=== PATIENT | male | born 1955 | race Caucasian/White ===

== ENCOUNTER → 2017-07-11 | Outpatient (CLI) | payer BC | LOC: M WUC 12:16 | DX: M79.605 Pain in left leg (principal); M51.36 Other intervertebral disc degeneration, lumbar region; M16.12 Unilateral primary osteoarthritis, left hip | CPT/HCPCS: 72110 ==

== ENCOUNTER → 2017-08-13 | Outpatient (CLI) | payer BC | LOC: M RAD 13:35 | DX: M54.5 Low back pain (principal) ==

== ENCOUNTER → 2017-09-30 | Outpatient (REF) | payer BC ==
[2017-09-30 13:21] LABS: ALBUMIN 4.3 GM/DL (3.2-5.2); ALBUMIN/GLOBULIN RATIO 1.43 (1.00-1.93); ALKALINE PHOSPHATASE 77 U/L (45-117); ALT/SGPT 20 U/L (12-78); ANION GAP 7 MEQ/L (8-16); AST/SGOT 25 U/L (7-37); BILIRUBIN,TOTAL 0.9 MG/DL (0.2-1.0); BLOOD UREA NITROGEN 19 MG/DL (7-18); CALCIUM LEVEL 9.4 MG/DL (8.8-10.2); CARBON DIOXIDE LEVEL 27 MEQ/L (21-32); CHLORIDE LEVEL 108 MEQ/L (98-107); CHOLESTEROL LEVEL 176 MG/DL (<200); CHOLESTEROL RISK RATIO 9.263 (<5); CREATININE FOR GFR 1.34 MG/DL (0.70-1.30); GLOMERULAR FILTRATION RATE 57.1 (>49); GLUCOSE, FASTING 116 MG/DL (70-100); HDL CHOLESTEROL 19 MG/DL (>40); NON-HDL-C 157 MG/DL; POTASSIUM SERUM 4.6 MEQ/L (3.5-5.1); SODIUM LEVEL 142 MEQ/L (136-145); TOTAL PROTEIN 7.3 GM/DL (6.4-8.2); TRIGLYCERIDES LEVEL 505 MG/DL (<150)
[2017-09-30 13:52] LABS: HEPATITIS C VIRUS ABY INDEX < 0.0 INDEX (<0.8)
[2017-09-30 14:20] LABS: ESTIMATED AVERAGE GLUCOSE 114 MG/DL (60-110); HEMOGLOBIN A1c 5.6 %
== END ==
LOC: M SFHCPLAZ 10:10
DX: Z11.59 Encounter for screening for other viral diseases (principal); I10 Essential (primary) hypertension; E66.9 Obesity, unspecified; E78.5 Hyperlipidemia, unspecified; N39.3 Stress incontinence (female) (male)
CPT/HCPCS: 80053

== ENCOUNTER → 2017-10-10 | Outpatient (REF) | payer BC ==
[2017-10-10 13:41] LABS: BACTERIA, URINE AUTO NEGATIVE (NEGATIVE); RBC, URINE AUTO 0 /HPF (0-3); SQUAMOUS EPITHELIAL CELL UR AU 0 /HPF (0-6); WBC, URINE AUTO 3 /HPF (0-3)
== END ==
LOC: M SMT 12:57
DX: R33.9 Retention of urine, unspecified (principal)
CPT/HCPCS: 81015

== ENCOUNTER → 2017-10-18 | Outpatient (REF) | payer BC ==
[2017-10-18 19:05] LABS: AMORPHOUS SEDIMENT SMALL (NEGATIVE); APPEARANCE, URINE TURBID (CLEAR); BACTERIA, URINE AUTO 2+ (NEGATIVE); BILIRUBIN, URINE AUTO NEGATIVE (NEGATIVE); BLOOD, URINE BLOOD 3+ (NEGATIVE); COLOR, URINE YELLOW (YELLOW); GLUCOSE, URINE (UA) AUTO NEGATIVE (NEGATIVE); KETONE, URINE AUTO TRACE mg/dL (NEGATIVE); LEUKOCYTE ESTERASE, URINE AUTO 3+ (NEGATIVE); MUCUS, URINE SMALL (NEGATIVE); NITRITE, URINE AUTO NEGATIVE (NEGATIVE); PROTEIN, URINE AUTO 3+ mg/dL (NEGATIVE); RBC, URINE AUTO 120 /HPF (0-3); SPECIFIC GRAVITY URINE AUTO 1.019 (1.002-1.035); SQUAMOUS EPITHELIAL CELL UR AU 0 /HPF (0-6); WBC, URINE AUTO TNTC /HPF (0-3)
== END ==
LOC: M SMT 16:49
DX: R82.90 Unspecified abnormal findings in urine (principal)
CPT/HCPCS: 81001

== ENCOUNTER → 2017-10-22 | Outpatient (CLI) | payer BC | LOC: M RAD 09:48 | DX: R33.9 Retention of urine, unspecified (principal); K76.0 Fatty (change of) liver, not elsewhere classified; R16.0 Hepatomegaly, not elsewhere classified | CPT/HCPCS: 76775 ==

== ENCOUNTER → 2017-10-31 | Outpatient (REF) | payer BC ==
[2017-10-31 12:53] LABS: ANION GAP 8 MEQ/L (8-16); BLOOD UREA NITROGEN 16 MG/DL (7-18); CALCIUM LEVEL 9.4 MG/DL (8.8-10.2); CARBON DIOXIDE LEVEL 27 MEQ/L (21-32); CHLORIDE LEVEL 108 MEQ/L (98-107); CHOLESTEROL LEVEL 118 MG/DL (<200); CHOLESTEROL RISK RATIO 4.538 (<5); CREATININE FOR GFR 1.11 MG/DL (0.70-1.30); GLOMERULAR FILTRATION RATE > 60.0 (>49); GLUCOSE, FASTING 111 MG/DL (70-100); HDL CHOLESTEROL 26 MG/DL (>40); LDL CHOLESTEROL 50.6 MG/DL (<100); NON-HDL-C 92 MG/DL; POTASSIUM SERUM 4.6 MEQ/L (3.5-5.1); SODIUM LEVEL 143 MEQ/L (136-145); TRIGLYCERIDES LEVEL 207 MG/DL (<150)
== END ==
LOC: M LAB REF 11:58
DX: E78.5 Hyperlipidemia, unspecified (principal); I10 Essential (primary) hypertension
CPT/HCPCS: 80061

== ENCOUNTER → 2017-12-16 | Outpatient (REF) | payer BC ==
[2017-12-16 14:19] LABS: ANION GAP 9 MEQ/L (8-16); BLOOD UREA NITROGEN 15 MG/DL (7-18); CARBON DIOXIDE LEVEL 26 MEQ/L (21-32); CHLORIDE LEVEL 106 MEQ/L (98-107); GLOMERULAR FILTRATION RATE > 60.0 (>49); GLUCOSE, FASTING 113 MG/DL (70-100); POTASSIUM SERUM 4.3 MEQ/L (3.5-5.1); SODIUM LEVEL 141 MEQ/L (136-145); TROPONIN I < 0.02 NG/ML (< 0.10)
[2017-12-16 15:09] LABS: CREATININE, URINE 71.3 MG/DL; MAU/CREAT RATIO 586.2 MCG/MG (0.0-30.0)
== END ==
LOC: M SFHCPLAZ 13:41
DX: I16.0 Hypertensive urgency (principal)
CPT/HCPCS: 82043

== ENCOUNTER → 2018-05-30 | Outpatient (REF) | payer BC ==
[~2018-05-30] MED LIST: /TAMS4CA; ALLO300T; ALTA5CAP; ASPI325T; CIPR500T19; GEMF600T; METF750T; METO25TA2; NITR0.4S; PLAV75TA2; ROSU10TA; VARE1TA; VICO5TAB
[2018-05-30 18:42] LABS: APPEARANCE, URINE CLEAR (CLEAR); BACTERIA, URINE AUTO NEGATIVE (NEGATIVE); BILIRUBIN, URINE AUTO NEGATIVE (NEGATIVE); BLOOD, URINE BLOOD NEGATIVE (NEGATIVE); COLOR, URINE YELLOW (YELLOW); GLUCOSE, URINE (UA) AUTO 3+ mg/dL (NEGATIVE); KETONE, URINE AUTO NEGATIVE (NEGATIVE); LEUKOCYTE ESTERASE, URINE AUTO NEGATIVE (NEGATIVE); NITRITE, URINE AUTO NEGATIVE (NEGATIVE); PROTEIN, URINE AUTO NEGATIVE (NEGATIVE); RBC, URINE AUTO 1 /HPF (0-3); SPECIFIC GRAVITY URINE AUTO 1.027 (1.002-1.035); SQUAMOUS EPITHELIAL CELL UR AU 0 /HPF (0-6); UROBILINOGEN, URINE AUTO 0.2 mg/dL (0.0-2.0); WBC, URINE AUTO 2 /HPF (0-3)
== END ==
LOC: M SMT 17:04
PROVIDERS: ATTEND Specialist
DX: R30.0 Dysuria (principal)

== ENCOUNTER → 2018-07-07 | Outpatient (REF) | payer BC ==
[2018-07-07 12:19] LABS: BLOOD UREA NITROGEN 18 MG/DL (7-18); CALCIUM LEVEL 9.1 MG/DL (8.8-10.2); CARBON DIOXIDE LEVEL 27 MEQ/L (21-32); CHLORIDE LEVEL 98 MEQ/L (98-107); CHOLESTEROL LEVEL 124 MG/DL (<200); CHOLESTEROL RISK RATIO 5.391 (<5); CREATININE FOR GFR 1.46 MG/DL (0.70-1.30); GLOMERULAR FILTRATION RATE 51.7 (>49); GLUCOSE, FASTING 454 MG/DL (70-100); HDL CHOLESTEROL 23 MG/DL (>40); NON-HDL-C 101 MG/DL; POTASSIUM SERUM 4.4 MEQ/L (3.5-5.1); SODIUM LEVEL 135 MEQ/L (136-145); TRIGLYCERIDES LEVEL 786 MG/DL (<150)
[2018-07-07 12:30] LABS: HEMOGLOBIN A1c 9.9 %
[2018-07-07 12:43] LABS: CREATININE, URINE 78.1 MG/DL; MAU/CREAT RATIO 298.3 MCG/MG (0.0-30.0)
[2018-07-08 10:59] LABS: VITAMIN B12 LEVEL 1754 PG/ML (232-1245)
== END ==
LOC: M SFHCPLAZ 08:45
PROVIDERS: ATTEND Family Medicine
DX: R81 Glycosuria (principal); Z13.1 Encounter for screening for diabetes mellitus; E78.5 Hyperlipidemia, unspecified; I10 Essential (primary) hypertension; R80.9 Proteinuria, unspecified; R29.898 Other symptoms and signs involving the musculoskeletal system

== ENCOUNTER → 2018-08-07 | Outpatient (REF) | payer BC ==
[2018-08-07 12:45] LABS: CALCIUM LEVEL 9.5 MG/DL (8.8-10.2); CREATININE FOR GFR 1.31 MG/DL (0.70-1.30); GLOMERULAR FILTRATION RATE 58.6 (>49); POTASSIUM SERUM 4.6 MEQ/L (3.5-5.1)
[2018-08-07 13:25] LABS: HEMOGLOBIN A1c 10.1 %
== END ==
LOC: M SFHCPLAZ 10:24
PROVIDERS: ATTEND Family Medicine
DX: E11.29 Type 2 diabetes mellitus with other diabetic kidney complication (principal)

== ENCOUNTER → 2018-08-28 | Outpatient (CLI) | payer MEDICARE, BC ==
[~2018-08-28] MED LIST changes: -/TAMS4CA; +CRES10TA32; +FLOM0.4C39; +PROHANCE 279.3MG/ML 15ML VIAL (A9576) As Ordered ONE; -ROSU10TA
--- NOTE | 2018-08-28 10:58 | REP ---
MRI LUMBAR SPINE WITHOUT AND WITH CONTRAST: HISTORY: Bilateral leg weakness. CONTRAST: ProHance 11 mL. COMPARISON: 08/13/2017. A rudimentary disc is present at the S1-2 level. Decreased signal intensity on T2-weighted images is present in the L3-4 through L5-S1 intervertebral discs. The discs are decreased in height. These findings are consistent with disc degeneration. There is no disc bulge or herniation at the L1-2 level. The L1 nerves exit the neural foramina without compression. A diffuse disc bulge is present at the L2-3 level. There is an increase in the amount of epidural fat. There is minimal compression of the thecal sac. There is hypertrophy of the posterior articulating facets. The L2 nerves exit the neural foramina without compression. A diffuse disc bulge is present at the L3-4 level. There is an increase in the amount of epidural fat. There is minimal compression of the thecal sac. There is hypertrophy of the posterior articulating facets. The L3 nerves exit the neural foramina without compression. A diffuse disc bulge is present at the L4-5 level. There is an increase in the amount of epidural fat. There is mild compression of the thecal sac. There is hypertrophy of the posterior articulating facets. A small left intraforaminal disc protrusion is present. There is compression of the left L4 nerve in the neural foramen. The right L4 nerve exits the neural foramen without compression. A diffuse disc bulge and small disc extrusion central and eccentric to the right with associated osteophyte formation are present at the L5-S1 level. There is inferior migration of disc material. There are 4 mm of retrolisthesis of L5 on S1. There is an increase in the amount of epidural fat. There is mild compression of the thecal sac and S1 nerves as they exit the thecal sac. There is hypertrophy of the posterior articulating facets. There is compression of the L5 nerves in the neural foramina. There is partial sacralization of the L5 vertebral body. The conus medullaris terminates at the level of the L2-3 intervertebral disc. 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 The lipoma measures 0.7 cm in transverse by 1.1 cm in AP by 2.6 cm in cephalocaudal dimensions and is unchanged in size compared to the previous study. This is associated with fatty infiltration of the filum terminale. There is no syrinx. Increased signal intensity on T2-weighted images is present in the endplates of the L5 and S1 vertebral bodies. This represents degenerative change. IMPRESSION: 1. Diffuse disc bulge and epidural lipomatosis at the L2-3 and L3-4 levels with minimal thecal sac compression. 2. Diffuse disc bulge and epidural lipomatosis at the L4-5 level with mild thecal sac compression. A small left intraforaminal disc protrusion is present. There is compression of the left L4 nerve in the neural foramen. 3. Diffuse disc bulge and small disc extrusion with associated osteophyte formation and epidural lipomatosis at the L5-S1 level with minimal compression of the thecal sac and S1 nerves as they exit the thecal sac. There is compression of the L5 nerves in the neural foramina. 4. 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 This is associated with fatty infiltration of the filum terminale. There is no significant change compared to the previous study. Electronically Signed by Sami Velazco MD 08/28/2018 11:17 A
== END ==
LOC: M RAD 08:32
PROVIDERS: ATTEND Family Medicine
DX: R29.898 Other symptoms and signs involving the musculoskeletal system (principal); M51.26 Other intervertebral disc displacement, lumbar region; M51.34 Other intervertebral disc degeneration, thoracic region; M51.27 Other intervertebral disc displacement, lumbosacral region; E88.2 Lipomatosis, not elsewhere classified
CPT/HCPCS: 72158; A9576

== ENCOUNTER → 2018-09-04 | Outpatient (REF) | payer MEDICARE, BC ==
[~2018-09-04] MED LIST changes: -PROHANCE 279.3MG/ML 15ML VIAL (A9576) As Ordered ONE
[2018-09-04 11:25] LABS: BLOOD UREA NITROGEN 19 MG/DL (7-18); CALCIUM LEVEL 8.8 MG/DL (8.8-10.2); CARBON DIOXIDE LEVEL 28 MEQ/L (21-32); CHLORIDE LEVEL 105 MEQ/L (98-107); CHOLESTEROL LEVEL 108 MG/DL (<200); CREATININE FOR GFR 1.22 MG/DL (0.70-1.30); GLOMERULAR FILTRATION RATE > 60.0 (>49); GLUCOSE, FASTING 192 MG/DL (70-100); HDL CHOLESTEROL 24 MG/DL (>40); POTASSIUM SERUM 4.4 MEQ/L (3.5-5.1); SODIUM LEVEL 139 MEQ/L (136-145); TRIGLYCERIDES LEVEL 481 MG/DL (<150)
[2018-09-04 11:26] LABS: NON-HDL-C 84 MG/DL; TROPONIN I < 0.02 NG/ML (< 0.10)
== END ==
LOC: M SFHCPLAZ 10:06
PROVIDERS: ATTEND Family Medicine
DX: E78.5 Hyperlipidemia, unspecified (principal); I10 Essential (primary) hypertension; I16.0 Hypertensive urgency

== ENCOUNTER → 2018-09-11 | Outpatient (REF) | payer MEDICARE, BC ==
[~2018-09-11] MED LIST changes: +AMLO5TAB6; +CHLO125TA; +EZET10TA; +GLIP5TAB20; +JANU100T; +LOSA100T50; +METF500T13; +METO1TAB33; +OMEG1CAP4; +OMEP-221; +ROSU20TA4
[2018-09-11 13:45] LABS: MAU/CREAT RATIO 326.4 MCG/MG (0.0-30.0)
[2018-09-13 00:06] LABS: Lyme Disease IgG/IgM Antibodie <0.91 ISR (0.00-0.90); Lyme Disease IgM Ab Quantitati <0.80 index (0.00-0.79)
== END ==
LOC: M SFHCPLAZ 11:50
PROVIDERS: ATTEND Family Medicine
DX: R29.898 Other symptoms and signs involving the musculoskeletal system (principal); E78.5 Hyperlipidemia, unspecified; I10 Essential (primary) hypertension; I16.0 Hypertensive urgency
CPT/HCPCS: 36415; 82043; 86617; G0463

== ENCOUNTER 2018-10-06 08:57 | Emergency (ER) | payer MEDICARE, BC ==
[~2018-10-06] VITALS: Ht 175.3 cm; Wt 109.5 kg
[~2018-10-06 08:57] MED LIST changes: -AMLO5TAB6; -CHLO125TA; -EZET10TA; -GLIP5TAB20; -JANU100T; -LOSA100T50; -METF500T13; -METO1TAB33; -OMEG1CAP4; -OMEP-221; -ROSU20TA4
[2018-10-06 09:40] LABS: BASO % 0.4 % (0.0-1.0); EOS # 0.3 10^3/uL (0.0-0.50); EOS % 2.8 % (0.0-3.0); HEMOGLOBIN 14.8 g/dl (13.5-17.5); LYMPH # 2.6 10^3/uL (1.5-4.5); LYMPH % 27.7 % (24.0-44.0); MEAN CORPUSCULAR HEMOGLOBIN 31.6 pg (27.0-33.0); MEAN CORPUSCULAR HGB CONC 34.4 g/dl (32.0-36.5); MEAN CORPUSCULAR VOLUME 91.7 fl (80.0-96.0); MONO # 0.7 10^3/uL (0.0-0.8); MONO % 7.8 % (0.0-5.0); NEUTROPHILS # 5.7 10^3/uL (1.8-7.7); PLATELET COUNT, AUTOMATED 183 10^3/uL (150-450); RED BLOOD COUNT 4.69 10^6/uL (4.30-6.10); WHITE BLOOD COUNT 9.4 10^3/uL (4.0-10.0)
[2018-10-06] MEDS ORDERED: METF500T13 (09:41)
[2018-10-06] MEDS ORDERED: JANU100T (09:41)
[2018-10-06] MEDS ORDERED: ROSU20TA4 (09:41)
[2018-10-06] MEDS ORDERED: GLIP5TAB20 (09:41)
[2018-10-06] MEDS ORDERED: METO1TAB33 (09:41)
[2018-10-06] MEDS ORDERED: EZET10TA (09:41)
[2018-10-06] MEDS ORDERED: OMEG1CAP4 (09:41)
[2018-10-06] MEDS ORDERED: OMEP-221 (09:41)
[2018-10-06] MEDS ORDERED: CHLO125TA (09:41)
[2018-10-06] MEDS ORDERED: AMLO5TAB6 (09:41)
[2018-10-06] MEDS ORDERED: LOSA100T50 (09:41)
--- NOTE | 2018-10-06 09:43 | REP ---
Chest one-view HISTORY: Chest pain Comparison: 04/12/2008 The lungs are clear. The heart is normal in size. The pulmonary vasculature is normal in appearance. Impression: No acute disease. Electronically Signed by Sami Velazco MD 10/06/2018 09:34 A
[2018-10-06 10:01] LABS: BLOOD UREA NITROGEN 15 MG/DL (7-18); CALCIUM LEVEL 7.7 MG/DL (8.8-10.2); CARBON DIOXIDE LEVEL 28 MEQ/L (21-32); CHLORIDE LEVEL 107 MEQ/L (98-107); CK-MB VALUE MASS < 1.0 NG/ML (<3.6); CPK CREATINE PHOSPHOKINASE 184 U/L (39-308); CREATININE FOR GFR 1.18 MG/DL (0.70-1.30); GLOMERULAR FILTRATION RATE > 60.0 (>49); GLUCOSE, FASTING 149 MG/DL (70-100); MB/CK RELATIVE INDEX 0.54 (< OR =4); POTASSIUM SERUM 4.1 MEQ/L (3.5-5.1); SODIUM LEVEL 141 MEQ/L (136-145); TROPONIN I < 0.02 NG/ML (< 0.10)
[2018-10-06 12:12] LABS: CK-MB VALUE MASS < 1.0 NG/ML (<3.6); CPK CREATINE PHOSPHOKINASE 167 U/L (39-308); TROPONIN I < 0.02 NG/ML (< 0.10)
--- NOTE | 2018-10-06 12:13 | ECGEPIP ---
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
--- NOTE | 2018-10-06 12:16 | ECGEPIP ---
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
[2018-10-06 15:12] LABS: CK-MB VALUE MASS < 1.0 NG/ML (<3.6); CPK CREATINE PHOSPHOKINASE 141 U/L (39-308); MB/CK RELATIVE INDEX 0.71 (< OR =4); TROPONIN I < 0.02 NG/ML (< 0.10)
--- NOTE | 2018-10-06 15:40 | ECGEPIP ---
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
[2018-10-06 15:50] VITALS: BP 110/57
== END 2018-10-06 15:59 | disposition home or self-care (01) ==
LOC: M ED 08:57
DX: I25.118 Atherosclerotic heart disease of native coronary artery with other forms of angina pectoris (principal); E11.9 Type 2 diabetes mellitus without complications; I11.9 Hypertensive heart disease without heart failure; E78.5 Hyperlipidemia, unspecified; Z95.5 Presence of coronary angioplasty implant and graft; Z87.891 Personal history of nicotine dependence; Z82.49 Family history of ischemic heart disease and other diseases of the circulatory system; Z88.8 Allergy status to other drugs, medicaments and biological substances; Z79.899 Other long term (current) drug therapy; Z79.84 Long term (current) use of oral hypoglycemic drugs; Z79.82 Long term (current) use of aspirin

== ENCOUNTER → 2018-11-13 | Outpatient (REF) | payer MEDICARE, BC ==
[~2018-11-13] MED LIST changes: +AMLO5TAB6; +CHLO125TA; +EZET10TA21; +GLIP5TAB20; +JANU100T; +LOSA100T50; +METF500T13; +METO1TAB33; +OMEG1CAP4; +OMEP-221; +ROSU20TA5
[2018-11-13 14:03] LABS: CREATININE, URINE 88.1 MG/DL; MAU/CREAT RATIO 326.9 MCG/MG (0.0-30.0)
[2018-11-13 14:20] LABS: HEMOGLOBIN A1c 5.6 %
== END ==
LOC: M SFHCPLAZ 11:27
PROVIDERS: ATTEND Family Medicine
DX: E11.65 Type 2 diabetes mellitus with hyperglycemia (principal)
CPT/HCPCS: 36415; 82043; 83036; G0463

== ENCOUNTER → 2019-05-12 | Outpatient (REF) | payer MEDICARE, BC ==
[2019-05-12 12:33] LABS: ALBUMIN 4.2 GM/DL (3.2-5.2); ALT/SGPT 25 U/L (12-78); BLOOD UREA NITROGEN 15 MG/DL (7-18); CALCIUM LEVEL 9.5 MG/DL (8.8-10.2); CARBON DIOXIDE LEVEL 26 MEQ/L (21-32); CHLORIDE LEVEL 104 MEQ/L (98-107); CHOLESTEROL LEVEL 91 MG/DL (<200); CHOLESTEROL RISK RATIO 3.791 (<5); CREATININE FOR GFR 1.25 MG/DL (0.70-1.30); GLOMERULAR FILTRATION RATE > 60.0 (>49); GLUCOSE, FASTING 104 MG/DL (70-100); HDL CHOLESTEROL 24 MG/DL (>40); LDL CHOLESTEROL 10 MG/DL (<100); NON-HDL-C 67 MG/DL; POTASSIUM SERUM 4.5 MEQ/L (3.5-5.1); SODIUM LEVEL 141 MEQ/L (136-145); TOTAL PROTEIN 7.2 GM/DL (6.4-8.2); TRIGLYCERIDES LEVEL 284 MG/DL (<150)
[2019-05-12 12:40] LABS: HEMOGLOBIN A1c 5.2 %
== END ==
LOC: M SFHCPLAZ 10:24
PROVIDERS: ATTEND Nurse Practitioner Adult Health
DX: I10 Essential (primary) hypertension (principal); E11.65 Type 2 diabetes mellitus with hyperglycemia; E78.2 Mixed hyperlipidemia; Z85.038 Personal history of other malignant neoplasm of large intestine; Z23 Encounter for immunization
CPT/HCPCS: 36415; 80053; 80061; 82378; 83036; 90670; G0009; G0463

== ENCOUNTER 2019-06-08 01:31 | Emergency (ER) | payer MEDICARE, BC ==
[~2019-06-08] VITALS: Ht 177.8 cm; Wt 114.6 kg
[2019-06-08] MEDS ORDERED: ASPIRIN 325 MG TAB PO ONE (01:45)
[2019-06-08 01:59] LABS: BASO # 0.1 10^3/uL (0.0-0.2); BASO % 0.5 % (0.0-1.0); EOS # 0.3 10^3/uL (0.0-0.5); EOS % 2.9 % (0.0-3.0); HEMOGLOBIN 16.4 g/dl (13.5-17.5); LYMPH # 2.6 10^3/uL (1.5-5.0); LYMPH % 27.2 % (24.0-44.0); MEAN CORPUSCULAR HEMOGLOBIN 32.3 pg (27.0-33.0); MEAN CORPUSCULAR HGB CONC 33.5 g/dl (32.0-36.5); MEAN CORPUSCULAR VOLUME 96.5 fl (80.0-96.0); MONO # 0.7 10^3/uL (0.0-0.8); MONO % 7.7 % (0.0-5.0); NEUTROPHILS # 5.9 10^3/uL (1.5-8.5); NEUTROPHILS % 61.5 % (36.0-66.0); PLATELET COUNT, AUTOMATED 188 10^3/uL (150-450); RED BLOOD COUNT 5.08 10^6/uL (4.30-6.10); WHITE BLOOD COUNT 9.6 10^3/uL (4.0-10.0)
[2019-06-08 02:10] LABS: PROTHROMBIN TIME 12.9 SECONDS (11.8-14.0)
[2019-06-08] MEDS ORDERED: INDO50CA91 (02:10)
[2019-06-08 02:11] LABS: PARTIAL THROMBOPLASTIN TIME 26.5 SECONDS (25.0-38.4)
[2019-06-08] MEDS ORDERED: NITROGLYCERIN 2% OINT 1 GM *U/D* PKT As Ordered ONE (02:12)
[2019-06-08] MEDS ORDERED: MORPHINE 2 MG/ML 1ML VIAL (J2270) As Ordered ONE (02:13)
[2019-06-08] MEDS ORDERED: NITROGLYCERIN 2% OINT 1 GM *U/D* PKT TOP ONE (02:15)
[2019-06-08] MEDS ORDERED: MORPHINE 2 MG/ML 1ML VIAL (J2270) IV ONE (02:15)
[2019-06-08 02:28] LABS: BLOOD UREA NITROGEN 25 MG/DL (7-18); CALCIUM LEVEL 8.7 MG/DL (8.8-10.2); CARBON DIOXIDE LEVEL 29 MEQ/L (21-32); CHLORIDE LEVEL 104 MEQ/L (98-107); CK-MB VALUE MASS < 1.0 NG/ML (<3.6); CPK CREATINE PHOSPHOKINASE 94 U/L (39-308); CREATININE FOR GFR 1.53 MG/DL (0.70-1.30); GLOMERULAR FILTRATION RATE 48.9 (>49); GLUCOSE, FASTING 176 MG/DL (70-100); MB/CK RELATIVE INDEX 1.06 (< OR =4); POTASSIUM SERUM 4.1 MEQ/L (3.5-5.1); SODIUM LEVEL 142 MEQ/L (136-145); TROPONIN I < 0.02 NG/ML (< 0.10)
[2019-06-08] MEDS ORDERED: NS 500 ML IV ONE (02:30)
[2019-06-08] MEDS ORDERED: ISOVUE-370 76% 100ML VIAL (Q9967) As Ordered ONE (02:37)
--- NOTE | 2019-06-08 03:14 | REPVR ---
PROCEDURE INFORMATION: Exam: CT Angiography Chest With Contrast Exam date and time: 06/08/19 (2:46am) Age: 63 years old Clinical indication: Chest pain TECHNIQUE: Imaging protocol: Computed tomographic angiography of the chest with intravenous contrast. 3D rendering: MIP and/or 3D reconstructed images were created by the technologist. Radiation optimization: All CT scans at this facility use at least one of these dose optimization techniques: automated exposure control; mA and/or kV adjustment per patient size (includes targeted exams where dose is matched to clinical indication); or iterative reconstruction. Contrast material: Isovue 370 Contrast volume: 100 ml Contrast route: IV COMPARISON: Portable CXR of 06/08/19 FINDINGS: Pulmonary arteries: Normal. No pulmonary emboli. Aorta: Unremarkable. No aortic aneurysm. No aortic dissection. Lungs: No consolidation. No masses. Minimal bronchiectatic changes. Minimal streaky atelectatic changes at the right lung base. Pleural space: Unremarkable. No pneumothorax. No pleural effusions. Heart: Unremarkable. No cardiomegaly. No pericardial effusion. Lymph nodes: Unremarkable. No enlarged lymph nodes. Bones/joints: No acute fracture. Scattered degenerative thoracic spine changes. Soft tissues: Unremarkable. Upper abdomen: Distended stomach, filled with fluid, food debris and air. Diffuse fatty infiltration of the liver. IMPRESSION: No acute findings. No filling defects suspicious for pulmonary emboli are seen. There is no CT evidence of aortic dissection nor leakage. No aortic aneurysm is appreciated. Electronically signed by: Radha Chambers On 06/08/2019 03:13:52 AM
[2019-06-08] MEDS ORDERED: MORPHINE 4 MG/ML 1ML VIAL/SYRINGE (J2270) IV ONE (04:00)
[2019-06-08] MEDS ORDERED: amLODIPine 5 MG TAB PO ONE ×2 (05:45→06:15)
[2019-06-08 06:08] VITALS: BP 188/102
--- NOTE | 2019-06-08 06:22 | ECGEPIP ---
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
[2019-06-08 06:38] LABS: CK-MB VALUE MASS < 1.0 NG/ML (<3.6); CPK CREATINE PHOSPHOKINASE 80 U/L (39-308); MB/CK RELATIVE INDEX 1.25 (< OR =4); TROPONIN I < 0.02 NG/ML (< 0.10)
[2019-06-08] MEDS ORDERED: AMLO5TAB6 PO (06:51)
[2019-06-08] MEDS ORDERED: GABA-843 PO (07:13)
[2019-06-08] MEDS ORDERED: JANU100T PO (07:13)
[2019-06-08 07:22] VITALS: BP 132/76
[2019-06-08] MEDS ORDERED: OMEP40CA97 PO (07:28)
[2019-06-08] MEDS ORDERED: ZOFR4TAB16 PO (07:28)
--- NOTE | 2019-06-08 08:12 | REP ---
Portable chest x-ray: Single view. History: Chest pain. Comparison study: October 06, 2018. Findings: The right lateral pleural angle is excluded from the field of view but there does not appear to be significant pleural fluid on either side. The lungs are otherwise well inflated and clear. Cardiomediastinal silhouette and bony thorax are unremarkable. Impression: No acute disease. Electronically Signed by Alcides Adorno MD 06/08/2019 08:04 A
== END 2019-06-08 07:49 | disposition home or self-care (01) ==
LOC: M ED 01:31
DX: R07.89 Other chest pain (principal); I10 Essential (primary) hypertension; M54.9 Dorsalgia, unspecified; E11.9 Type 2 diabetes mellitus without complications; E78.5 Hyperlipidemia, unspecified; K21.9 Gastro-esophageal reflux disease without esophagitis; M10.9 Gout, unspecified; N40.0 Benign prostatic hyperplasia without lower urinary tract symptoms; M48.00 Spinal stenosis, site unspecified; M19.90 Unspecified osteoarthritis, unspecified site; Z79.899 Other long term (current) drug therapy; Z79.84 Long term (current) use of oral hypoglycemic drugs; Z79.82 Long term (current) use of aspirin; Z88.8 Allergy status to other drugs, medicaments and biological substances; Z87.891 Personal history of nicotine dependence
CPT/HCPCS: 71045; 71275; 80048; 82550; 82553; 84484; 85025; 85610; 85730; 93005; 93041; 94760; 96374; 96376; 99285; J2270; Q9967

== ENCOUNTER 2019-06-13 20:49 | Inpatient (IN) | payer MEDICARE, BC ==
[~2019-06-13] VITALS: Ht 177.8 cm; Wt 112.0 kg
[~2019-06-13 20:49] MED LIST changes: +AMLO5TAB6 PO; -EZET10TA21; +EZET10TA21 PO; +GABA-843 PO; -GLIP5TAB20; +GLIP5TAB20 PO; +INDO50CA91 PO; +JANU100T PO; -LOSA100T50; +LOSA100T50 PO; -METO1TAB33; +METO1TAB33 PO; -OMEG1CAP4; +OMEG1CAP4 PO; -OMEP-221; +OMEP-221 PO; +OMEP40CA97 PO; -ROSU20TA5; +ROSU20TA5 PO; +ZOFR4TAB16 PO
[2019-06-13] MEDS ORDERED: NS 1,000 ML IV ONE (21:15)
[2019-06-13] MEDS ORDERED: DULC5TAB PO (21:16)
[2019-06-13] MEDS ORDERED: MIRA3350 PO (21:16)
[2019-06-13] MEDS ORDERED: magnesium citrate (21:16)
[2019-06-13] MEDS ORDERED: ONDANSETRON 4MG/2ML VIAL (J2405) IV ONE (21:30)
[2019-06-13 21:38] LABS: BASO % 0.3 % (0.0-1.0); EOS # 0.2 10^3/uL (0.0-0.5); EOS % 1.4 % (0.0-3.0); HEMATOCRIT 48.6 % (42.0-52.0); HEMOGLOBIN 15.9 g/dl (13.5-17.5); LYMPH # 1.2 10^3/uL (1.5-5.0); LYMPH % 10.2 % (24.0-44.0); MEAN CORPUSCULAR HEMOGLOBIN 31.3 pg (27.0-33.0); MEAN CORPUSCULAR HGB CONC 32.7 g/dl (32.0-36.5); MEAN CORPUSCULAR VOLUME 95.7 fl (80.0-96.0); MONO % 8.2 % (0.0-5.0); NEUTROPHILS # 9.5 10^3/uL (1.5-8.5); NEUTROPHILS % 79.3 % (36.0-66.0); PLATELET COUNT, AUTOMATED 297 10^3/uL (150-450); RED BLOOD COUNT 5.08 10^6/uL (4.30-6.10)
[2019-06-13] MEDS: MORPHINE 4 MG/ML 1ML VIAL/SYRINGE (J2270) IV PRN ×2 (21:38→22:07)
[2019-06-13 22:13] LABS: ALBUMIN 3.3 GM/DL (3.2-5.2); ALT/SGPT 222 U/L (12-78); BILIRUBIN,DIRECT 1.1 MG/DL (0.0-0.2); BILIRUBIN,TOTAL 1.7 MG/DL (0.2-1.0); CK-MB VALUE MASS < 1.0 NG/ML (<3.6); CPK CREATINE PHOSPHOKINASE 76 U/L (39-308); LIPASE 275 U/L (73-393); MB/CK RELATIVE INDEX 1.32 (< OR =4); TOTAL PROTEIN 7.2 GM/DL (6.4-8.2); TROPONIN I < 0.02 NG/ML (< 0.10)
--- NOTE | 2019-06-13 22:56 | REPVR ---
PROCEDURE INFORMATION: Exam: CT Abdomen And Pelvis Without Contrast Exam date and time: 06/13/2019 10:13 PM Age: 63 years old Clinical indication: Abdominal pain; Epigastric; Additional info: Epigastric abd pain, ckd TECHNIQUE: Imaging protocol: Computed tomography of the abdomen and pelvis without contrast. Radiation optimization: All CT scans at this facility use at least one of these dose optimization techniques: automated exposure control; mA and/or kV adjustment per patient size (includes targeted exams where dose is matched to clinical indication); or iterative reconstruction. COMPARISON: RENAL US 2017-10-22 10:01 FINDINGS: Limitations: Limited by patient's body habitus. Lungs: Dependent subsegmental pulmonary atelectasis. Liver: Enlarged low attenuating liver, evidence of hepatic steatosis. Gallbladder and bile ducts: Gallbladder distention without radiopaque stones. Pericholecystic stranding. Evident suggesting acute cholecystitis, correlate with ultrasound. Pancreas: Normal. No ductal dilation. Spleen: Normal. No splenomegaly. Adrenals: Normal. No mass. Kidneys and ureters: Mild perinephric stranding. Stomach and bowel: Moderate to large duodenal diverticulum. Mild colonic diverticulosis without evidence for acute diverticulitis. Rectosigmoid bowel anastomosis. Anterior midline small bowel anastomosis. Gastric wall thickening. Appendix: No evidence of appendicitis. Intraperitoneal space: Unremarkable. No free air. No significant fluid collection. Vasculature: Moderate right greater than left iliac artery atherosclerosis. Lymph nodes: Unremarkable. No enlarged lymph nodes. Bladder: Bladder wall thickening. Reproductive: Unremarkable as visualized. Bones/joints: Mild/moderate lumbar spondylosis. Soft tissues: Laparotomy scarring. Small fat protruding umbilical hernia. IMPRESSION: Gallbladder distention but without radiopaque stones. Pericholecystic stranding. Evidence suggesting possible acute cholecystitis, correlate with ultrasound. Electronically signed by: Rome Singh On 06/13/2019 22:56:24 PM
--- NOTE | 2019-06-13 23:10 | REPVR ---
PROCEDURE INFORMATION: Exam: US Abdomen Limited, Right Upper Quadrant Exam date and time: 06/13/2019 11:00 PM Age: 63 years old Clinical indication: Abdominal pain; Epigastric; Additional info: Ruq abd pain TECHNIQUE: Imaging protocol: Real-time ultrasound of the abdomen with image documentation. Examination was focused on the right upper quadrant. COMPARISON: RENAL US 2017-10-22 10:01 FINDINGS: Limitations: Limited by patient's body habitus. Liver: Echogenic liver compatible with hepatic steatosis. Gallbladder: Positive sonographic Rahman sign with gallbladder wall thickening measuring 4 mm, and gallbladder sludge. Evidence favoring acute cholecystitis. Common bile duct: Normal common biliary duct measuring 4 mm. Pancreas: Pancreas obscured by bowel gas. Right kidney: Normal. No mass. No hydronephrosis. IMPRESSION: Positive sonographic Rahman sign with gallbladder wall thickening measuring 4 mm, and gallbladder sludge. Evidence favoring acute cholecystitis. Electronically signed by: Rome Singh On 06/13/2019 23:09:57 PM
[2019-06-13] MEDS ORDERED: PIPERACILLIN/TAZOBACTAM SOD 3.375 GM in D5W MINI-BAG PLUS 50 ML IV ONE (23:30)
[2019-06-13] MEDS ORDERED: AMLO5TAB6 PO (23:54)
[2019-06-13] MEDS ORDERED: NITR0.4S14 SL (23:54)
[2019-06-13] MEDS ORDERED: ONDA4TAB6 PO (23:54)
[2019-06-13] MEDS ORDERED: BAYE325T12 PO (23:54)
[2019-06-14] MEDS ORDERED: BISACODYL 5 MG TAB PO PRN
[2019-06-14] MEDS ORDERED: ACETAMINOPHEN TAB 650MG DOSE (2X325MG) PO PRN
[2019-06-14] MEDS ORDERED: GLUCAGON FOR INJ 1 MG VIAL (J1610) SC PRN
[2019-06-14] MEDS ORDERED: ONDANSETRON 4MG/2ML VIAL (J2405) IV PRN
[2019-06-14] MEDS ORDERED: DEXTROSE 50% 50 ML SYRINGE IV PRN
[2019-06-14] MEDS ORDERED: KETOROLAC 30 MG/ML VIAL (J1885) IV PRN
[2019-06-14] MEDS ORDERED: GLUCOSE 4 GM CHEW TABLET PO PRN
[2019-06-14] MEDS ORDERED: INDOMETHACIN 25 MG CAP PO PRN
[2019-06-14] MEDS ORDERED: PERCOCET 5MG/325MG TAB PO PRN ×2
[2019-06-14 00:47] VITALS: BP 152/77
[2019-06-14] MEDS: LR 1,000 ML IV SCH ×3 (01:12→20:22)
[2019-06-14] MEDS: GABAPENTIN 300 MG CAP PO SCH ×3 (01:17→20:23)
[2019-06-14] MEDS: EZETIMIBE 10 MG TAB (ZETIA) PO SCH ×2 (01:17→20:23)
[2019-06-14] MEDS: ROSUVASTATIN 10 MG TAB (CRESTOR) PO SCH ×2 (01:18→20:23)
[2019-06-14] MEDS: LOSARTAN 50 MG TAB PO SCH ×2 (01:18→20:23)
[2019-06-14] MEDS: SENOKOT S TAB PO SCH ×3 (01:20→20:23)
[2019-06-14] MEDS: amLODIPine 5 MG TAB PO SCH ×3 (01:21→20:23)
[2019-06-14] MEDS ORDERED: MORPHINE 4 MG/ML 1ML VIAL/SYRINGE (J2270) IV PRN (02:45)
[2019-06-14] MEDS: AMPICILLIN SOD/SULBACTAM SOD 3 GM in D5W MINI-BAG PLUS 100 ML IV SCH ×4 (05:39→23:38)
[2019-06-14 06:00] VITALS: BP 143/75
[2019-06-14 06:20] LABS: BASO % 0.2 % (0.0-1.0); EOS # 0.1 10^3/uL (0.0-0.5); EOS % 0.4 % (0.0-3.0); HEMATOCRIT 43.6 % (42.0-52.0); HEMOGLOBIN 14.4 g/dl (13.5-17.5); LYMPH # 0.9 10^3/uL (1.5-5.0); LYMPH % 4.9 % (24.0-44.0); MEAN CORPUSCULAR HEMOGLOBIN 31.8 pg (27.0-33.0); MEAN CORPUSCULAR VOLUME 96.2 fl (80.0-96.0); MONO # 1.3 10^3/uL (0.0-0.8); MONO % 7.6 % (0.0-5.0); NEUTROPHILS # 15.3 10^3/uL (1.5-8.5); NEUTROPHILS % 86.6 % (36.0-66.0); PLATELET COUNT, AUTOMATED 287 10^3/uL (150-450); RED BLOOD COUNT 4.53 10^6/uL (4.30-6.10); WHITE BLOOD COUNT 17.7 10^3/uL (4.0-10.0)
[2019-06-14 06:49] LABS: ALBUMIN 3.1 GM/DL (3.2-5.2); BILIRUBIN,TOTAL 2.8 MG/DL (0.2-1.0); CALCIUM LEVEL 9.1 MG/DL (8.8-10.2); CREATININE FOR GFR 1.5 MG/DL (0.70-1.30); POTASSIUM SERUM 4.2 MEQ/L (3.5-5.1); TOTAL PROTEIN 7.2 GM/DL (6.4-8.2)
[2019-06-14] MEDS ORDERED: HumaLOG INSULIN (NovoLOG) PER UNIT SC SCH (07:30)
[2019-06-14] MEDS: CHLORTHALIDONE 12.5MG PER 1/2 TABLET PO SCH (08:04)
[2019-06-14] MEDS: PANTOPRAZOLE 40MG INJ (PROTONIX) (C9113) IV SCH (08:04)
[2019-06-14] MEDS: ENOXAPARIN 40 MG/0.4 ML SYRINGE (J1650) SC SCH (08:04)
[2019-06-14] MEDS: METOPROLOL SUCC (TopROL XL) 100MG *XL* TAB PO SCH (08:07)
[2019-06-14] MEDS: HumaLOG INSULIN (NovoLOG) PER UNIT SC SCH ×3 (12:00→23:37)
[2019-06-14] MEDS: LACTULOSE 20 GM/30 ML SYRUP UD PO SCH ×2 (13:58→20:21)
[2019-06-14 14:00] VITALS: BP 132/66
--- NOTE | 2019-06-14 14:41 | REP ---
MRCP: Without contrast. History: Elevated liver function studies. Rule out CBD obstruction. Comparison CT study June 13, 2019. Comparison sonography June 13, 2019. Technique: Axial and coronal T2-weighted scans were obtained. In addition, MRCP acquisition is acquired and maximal intensity projection images are generated. MRCP findings: There is a fluid-fluid level in the gallbladder lumen consistent with sludge. Gallbladder wall appears somewhat thickened. The gallbladder is distended mildly. The common bile duct is at the upper range of normal in size measuring 6 mm. There is no evidence of choledocholithiasis. The main pancreatic duct is normal in appearance. There is a fairly large duodenal diverticulum arising from the second portion of the duodenum near the ampulla. No pancreatic lesion is seen. No focal hepatic lesion is observed. No intrahepatic ductal dilation is observed. Impression: Distended gallbladder with sludge and mild gallbladder wall thickening. Duodenal diverticulum extending from the second portion of the duodenum near the ampulla. CBD at the upper range of normal 6 mm. No evidence of choledocholithiasis. Electronically Signed by Alcides Adorno MD 06/14/2019 02:31 P
[2019-06-14 22:00] VITALS: BP 133/68
--- NOTE | 2019-06-14 23:46 | HPEPDOC ---
General Surgery H&P Date of Admission Jun 14, 2019 Attending Physician: PATTY KENNEY MD History and Physical CHIEF COMPLAINT: abdominal pain HISTORY OF PRESENT ILLNESS: Patient is a 63-year-old male who was present twice in the emergency room in a span of 1 week's time complain of intermittent periumbilical discomfort. He was seen last Saturday complaining of periumbilical pain also being able to move his bowels and was diagnosed with constipation. ALLERGIES: Please see below. HOME MEDICATIONS: Please see below. PAST MEDICAL HISTORY: 1. Coronary artery disease with prior angioplasty and stent placement in 2003, prior history of DE 2. Hypercholesterolemia 3. Hypertension 4. History of sleep apnea not on CPAP 5. History of rectal cancer status post low anterior resection 6. BPH 7. Gastroesophageal reflux disease 8. Diabetes. 9. Cataracts PAST SURGICAL HISTORY: 1. Angioplasty with stent placement 2003. 2. Low anterior resection 3. TURP 2 4. Carpal Tunnel release on the left wrist. PERSONAL/SOCIAL HISTORY: Denies smoking, alcohol use, or recreational drug use. REVIEW OF SYSTEMS: GENERAL: Denies chills, fatigue, fever, weight gain and weight loss. HEENT: Patient reports cataracts, moderate hearing loss. NECK: Denies any neck pain. CARDIOVASCULAR: Patient with significant cardiac history but denies any ongoing chest pain. Able to do light to moderate activity. MUSCULOSKELETAL: Denies arthralgias, back pain and thrombophlebitis. SKIN: Denies rash. NEUROLOGIC: Denies headache, stroke and transient ischemic attack. PSYCHIATRIC: Denies anxiety and depression. ENDOCRINE: Denies thyroid disease, has diabetes on oral hypoglycemics.. HEMATOLOGY/ONCOLOGY: Denies any bleeding or clotting disorder. Patient not on any anticoagulants. He is on full dose aspirin daily. PULMONARY: Denies any significant shortness of breath on activity. Has diagnosed sleep apnea not on CPAP or oxygen requirements. GASTROINTESTINAL: Significant for prior history of rectal cancer status post low anterior resection. He is problems with constipation and needs laxatives to help him. GENITOURINARY: Patient's of the catheterizes since rectal surgery. INFECTIOUS: Denies any recent upper respiratory tract infection, UTI, need for use of antibiotics. NUTRITION: Reports good appetite. PHYSICAL EXAMINATION: VITAL SIGNS: Please see below. GENERAL APPEARANCE: Patient seen laying on bed, relatively comfortable, not in any acute distress. He is moderately obese in appearance, does not appear to be chronically ill. He is pleasant and cooperative. HEENT: Patient is normocephalic, no facial asymmetry. Speech is slightly slow in pace. No obvious jaundice or scleral icterus. CHEST: No chest wall abnormalities. Normal respiratory motion/effort. NECK: Supple. No thyromegaly. No lymphadenopathies. LUNGS: Lung sounds are clear to auscultation bilaterally. No wheezing appreciated. HEART: No chest wall abnormalities. Heart rate and rhythm are regular with no murmurs. ABDOMEN: He is moderately obese. Abdomen is quite protuberant. He seems to be tensely distended. He has a low midline incision. No obvious incisional hernia. He is somewhat tender around the periumbilical area but no real focal tenderness over the right upper quadrant area. No obvious Rahman sign.. SKIN: Warm, moist. EXTREMITIES: Extremities have no deformities. No edema identified. NEUROLOGICAL: Awake, alert, oriented. . ANCILLARIES: . LABORATORY DATA: Please see below. MICROBIOLOGY: Please see below. IMAGING: CT abdomen and pelvis Gallbladder distention but without radiopaque stones. Pericholecystic stranding. Evidence suggesting possible acute cholecystitis, correlate with ultrasound. Gallbladder ultrasound Positive sonographic Rahman sign in the gallbladder wall thickening measuring 4 mm, gallbladder sludge. Common bile duct 4 mm IMPRESSION AND PLAN: acute cholecystitis probable choledocholithiasis. Chronic constipation He alec one week of symptoms that are not necessarily located to the right upper quadrant near though he does show some inflammation related to the gallbladder. Per emergency room report as well as ultrasound report he was tender at the right upper quadrant area so on my exam right now most of the discomfort are in the periumbilical area which may also be related to the abdominal distention from the chronic constipation possibly slight fecal impaction. He does have evidence for gallbladder wall thickening and pericholecystic edema on imaging as well as leukocytosis. Thus I will treat him as cholecystitis and start him on IV antibiotics. He does have some sludge in the gallbladder. On the ultrasound is is only 4 mm: Bile duct. He has pronounced AST and ALT as well as total bili shin elevation which makes me suspect the possibility of choledocholithiasis. I'll admit him the hospital for IV antibiotics and we'll repeat the LFTs this morning of this continues to elevate we'll get an MRI to rule out choledocholithiasis. I discussed with him how we treat cholecystitis with regards to operative therapy. Usually if I encounter patient's within 2 or 3 days of stereotactic I will consider immediate cholecystectomy though with prolonged attacks and prohibitive swelling and edema from this. A usually would try conservative therapy. He's been reporting symptoms that is about a week now. Also we still have to workup the angle of possibly choledocholithiasis. Also with his exa mination he is quite distended which mainly from the ileus or from his constipation. I will start him on twice a day doses of lactulose as he has taken multiple laxatives already without much effect. I'm hoping to if need be create space for possible laparoscopy. Overall he does not look toxic, toxic or septic thus an emergent procedure does not need to be done right now. Vital Signs Vital Signs Date Time Temp Pulse Resp B/P (MAP) Pulse Ox O2 Delivery O2 Flow Rate FiO2 06/14/19 20:23 125/65 06/14/19 20:23 78 06/14/19 14:00 96.5 17 94 Room Air I&Os I&O- Last 24 Hours up to 6 AM 06/14/19 06:00 Intake Total 1000 ml Balance 1000 ml Laboratory Data Labs 24H Laboratory Tests 2 06/14/19 00:53: Bedside Glucose (Misc Panel) 179H 06/14/19 05:51: Bedside Glucose (Misc Panel) 119H 06/14/19 05:55: Immature Granulocyte % (Auto) 0.3, Neutrophils (%) (Auto) 86.6H, Lymphocytes (%) (Auto) 4.9L, Monocytes (%) (Auto) 7.6H, Eosinophils (%) (Auto) 0.4, Basophils (%) (Auto) 0.2, Neutrophils # (Auto) 15.3H, Lymphocytes # (Auto) 0.9L, Monocytes # (Auto) 1.3H, Eosinophils # (Auto) 0.1, Basophils # (Auto) 0.0, Nucleated Red Blood Cells % (auto) 0.0, Anion Gap 6L, Glomerular Filtration Rate 50.0, Calcium Level 9.1, Total Bilirubin 2.8#H, Direct Bilirubin 2.0H, Aspartate Amino Transf (AST/SGOT) 650H, Alanine Aminotransferase (ALT/SGPT) 430H, Alkaline Phosphatase 274H, Total Protein 7.2, Albumin 3.1L, Albumin/Globulin Ratio 0.76L 06/14/19 12:25: Bedside Glucose (Misc Panel) 132H CBC/BMP Laboratory Tests 06/14/19 05:55 Microbiology Microbiology 06/13/19 Blood Culture - Preliminary, Resulted 06/13/19 Blood Culture - Preliminary, Resulted No growth after 24 hours . All specim... 06/13/19 Urine Culture, Received Pending Home Medications Scheduled Amlodipine Besylate (Amlodipine Besylate) 5 Mg Tablet, 5 MG PO BID, (Reported) Aspirin (Aspirin) 325 Mg Tablet, 325 MG PO DAILY, (Reported) Chlorthalidone (Chlorthalidone) 25 Mg Tablet, 12.5 MG DAILY, (Reported) Ezetimibe (Ezetimibe) 10 Mg Tablet, 10 MG PO QHS, (Reported) Gabapentin (Gabapentin) 300 Mg Capsule, 300 MG PO BID, (Reported) Glipizide (Glipizide ER) 5 Mg Tab.er.24, 5 MG PO DAILY, (Reported) Losartan Potassium (Losartan Potassium) 100 Mg Tablet, 100 MG PO QHS, (Reported) Metformin HCl (Metformin HCl) 500 Mg Tablet, 1,000 MG BID, (Reported) Metoprolol Succinate (Metoprolol Succinate) 100 Mg Tab.er.24h, 100 MG PO DAILY, (Reported) Nitroglycerin (Nitroglycerin) 0.4 Mg Tab.subl, 0.4 MG SL NITRO, (Reported) Prospect-3 Acid Ethyl Esters (Prospect-3 Acid Ethyl Esters) 1 Gm Capsule, 1 GRAM PO QHS, (Reported) Omeprazole (Omeprazole) 40 Mg Capsule.dr, 40 MG PO DAILY, (Reported) Rosuvastatin Calcium (Rosuvastatin Calcium) 20 Mg Tablet, 20 MG PO QHS, (Reported) Sitagliptin Phosphate (Januvia) 100 Mg Tablet, 100 MG PO DAILY, (Reported) Scheduled PRN Bisacodyl (Dulcolax) 5 Mg Tablet.dr, 5 MG PO DAILY PRN for CONSTIPATION, (Reported) Indomethacin (Indomethacin) 50 Mg Capsule, 50 MG PO BID PRN for GOUT FLARES, (Reported) Ondansetron (Ondansetron Odt) 4 Mg Tab.rapdis, 4 MG PO Q6H PRN for NAUSEA OR VOMITING, (Reported) Polyethylene Glycol 3350 (Miralax) 119 Gm Powder, 17 GM PO DAILY PRN for CONSTIPATION, (Reported) dilute in 8 ounces of water or juice Allergies Coded Allergies: niacin (Verified Allergy, Intermediate, hives, 06/13/19) A-FIB/CHADSVASC A-FIB History Current/History of A-Fib/PAF?: No Current PO Anticoag Therapy: No PATTY KENNEY MD Jun 14, 2019 23:46
[2019-06-15 05:51] LABS: BASO % 0.2 % (0.0-1.0); EOS # 0.3 10^3/uL (0.0-0.5); EOS % 2.9 % (0.0-3.0); HEMOGLOBIN 13.8 g/dl (13.5-17.5); LYMPH # 0.7 10^3/uL (1.5-5.0); LYMPH % 7.6 % (24.0-44.0); MEAN CORPUSCULAR HEMOGLOBIN 31.6 pg (27.0-33.0); MEAN CORPUSCULAR HGB CONC 32.9 g/dl (32.0-36.5); MEAN CORPUSCULAR VOLUME 96.1 fl (80.0-96.0); MONO # 0.7 10^3/uL (0.0-0.8); MONO % 6.8 % (0.0-5.0); NEUTROPHILS # 7.8 10^3/uL (1.5-8.5); NEUTROPHILS % 81.9 % (36.0-66.0); PLATELET COUNT, AUTOMATED 226 10^3/uL (150-450); RED BLOOD COUNT 4.37 10^6/uL (4.30-6.10); WHITE BLOOD COUNT 9.5 10^3/uL (4.0-10.0)
[2019-06-15] MEDS: LR 1,000 ML IV SCH ×2 (05:57→16:55)
[2019-06-15] MEDS: AMPICILLIN SOD/SULBACTAM SOD 3 GM in D5W MINI-BAG PLUS 100 ML IV SCH ×3 (05:57→18:09)
[2019-06-15 06:00] VITALS: BP 160/82
[2019-06-15 06:32] LABS: ALBUMIN 2.8 GM/DL (3.2-5.2); BILIRUBIN,TOTAL 3.5 MG/DL (0.2-1.0); CALCIUM LEVEL 8.5 MG/DL (8.8-10.2); CREATININE FOR GFR 1.34 MG/DL (0.70-1.30); POTASSIUM SERUM 3.3 MEQ/L (3.5-5.1); TOTAL PROTEIN 6.7 GM/DL (6.4-8.2)
[2019-06-15] MEDS: HumaLOG INSULIN (NovoLOG) PER UNIT SC SCH ×3 (06:57→18:10)
[2019-06-15 08:55] VITALS: BP 151/78
[2019-06-15] MEDS: SENOKOT S TAB PO SCH ×2 (09:00→21:05)
[2019-06-15] MEDS: LACTULOSE 20 GM/30 ML SYRUP UD PO SCH (09:00)
[2019-06-15] MEDS: CHLORTHALIDONE 12.5MG PER 1/2 TABLET PO SCH (09:00)
[2019-06-15] MEDS: GABAPENTIN 300 MG CAP PO SCH ×2 (09:46→21:05)
[2019-06-15] MEDS: METOPROLOL SUCC (TopROL XL) 100MG *XL* TAB PO SCH (09:47)
[2019-06-15] MEDS: amLODIPine 5 MG TAB PO SCH ×2 (09:47→21:06)
[2019-06-15] MEDS: PANTOPRAZOLE 40MG INJ (PROTONIX) (C9113) IV SCH (09:47)
[2019-06-15] MEDS: ENOXAPARIN 40 MG/0.4 ML SYRINGE (J1650) SC SCH (09:48)
[2019-06-15 09:57] LABS: BILIRUBIN,DIRECT 2.7 MG/DL (0.0-0.2)
[2019-06-15 14:16] VITALS: BP 148/72
[2019-06-15] MEDS: EZETIMIBE 10 MG TAB (ZETIA) PO SCH (21:05)
[2019-06-15] MEDS: LOSARTAN 50 MG TAB PO SCH (21:06)
[2019-06-15] MEDS: ROSUVASTATIN 10 MG TAB (CRESTOR) PO SCH (21:06)
[2019-06-15 22:00] VITALS: BP 170/77
[2019-06-16] MEDS: HumaLOG INSULIN (NovoLOG) PER UNIT SC SCH ×3 (00:18→11:55)
[2019-06-16] MEDS: AMPICILLIN SOD/SULBACTAM SOD 3 GM in D5W MINI-BAG PLUS 100 ML IV SCH ×3 (00:18→11:41)
[2019-06-16 01:00] VITALS: BP 163/78
[2019-06-16] MEDS: LR 1,000 ML IV SCH (01:28)
--- NOTE | 2019-06-16 04:03 | IPNPDOC ---
Text Note Date of Service The patient was seen on 06/15/19. NOTE Patient's abdominal distention is markedly improved with the lactulose. He is complaining of diarrhea and would like to stop the lactulose. He is denying any further abdominal discomfort, nausea or vomiting. He has been afebrile. On examination he is laying in bed comfortably. No evidence for jaundice or icteric sclerae Breathing comfortably, breath sounds are clear to auscultation bilaterally with no wheezing Heart rate and rhythm are regular with no murmurs Abdomen is obese. Previous distention markedly improved. No obvious tenderness at the right upper quadrant area previously at the prior umbilical area also has resolved Labs Significant for continued worsening of his hyperbilirubinemia. Now at 3.5 total bilirubin. Direct bilirubin is 2.7. AST is 2.7 ALT is 212. His previous leukocytosis is resolved Impression and plans Acute cholecystitis Abnormally elevated LFTs particularly his bilirubin which is given an obstructive pattern Constipation improved MRCP has been done yesterday. This does not show any obvious obstructive appearance. The common bile duct measures 6 mm. He has a very large duodenal diverticulum at the second portion of the duodenum near the ampulla. An obvious: Bile duct stone is not found. In terms of his abdominal pain is markedly improved. His leukocytosis is improved now continue his antibiotics for now. His labs still shows an obstructive pattern despite no obvious common bile duct stone on MRCP. I will have our motor block mechanic take a look at him and see what they think with regards to the hyperbilirubinemia on whether he needs a possible ERCP His abdominal distention has improved with the lactulose. I'll stop this for now. I will allow him clear liquids for now while awaiting evaluation by gastroenterology. VS,Fishbone, I+O VS, Fishbone, I+O Laboratory Tests 06/15/19 05:27 Vital Signs Date Time Temp Pulse Resp B/P (MAP) Pulse Ox O2 Delivery O2 Flow Rate FiO2 06/16/19 01:00 98.5 70 18 163/78 (106) 96 Room Air I&O- Last 24 Hours up to 6 AM 06/16/19 06:00 Intake Total 1980 ml Output Total 3900 ml Balance -1920 ml PATTY KENNEY MD Jun 16, 2019 04:03
[2019-06-16 06:47] LABS: BASO % 0.3 % (0.0-1.0); EOS # 0.2 10^3/uL (0.0-0.5); EOS % 2.9 % (0.0-3.0); HEMATOCRIT 41.2 % (42.0-52.0); HEMOGLOBIN 13.9 g/dl (13.5-17.5); LYMPH # 1.1 10^3/uL (1.5-5.0); LYMPH % 15.8 % (24.0-44.0); MEAN CORPUSCULAR HEMOGLOBIN 31.6 pg (27.0-33.0); MEAN CORPUSCULAR HGB CONC 33.7 g/dl (32.0-36.5); MEAN CORPUSCULAR VOLUME 93.6 fl (80.0-96.0); MONO # 0.7 10^3/uL (0.0-0.8); MONO % 10.6 % (0.0-5.0); NEUTROPHILS # 4.6 10^3/uL (1.5-8.5); NEUTROPHILS % 69.5 % (36.0-66.0); PLATELET COUNT, AUTOMATED 245 10^3/uL (150-450); WHITE BLOOD COUNT 6.6 10^3/uL (4.0-10.0)
[2019-06-16 07:18] LABS: ALBUMIN 2.6 GM/DL (3.2-5.2); ALT/SGPT 156 U/L (12-78); BILIRUBIN,TOTAL 1.1 MG/DL (0.2-1.0); BLOOD UREA NITROGEN 14 MG/DL (7-18); CALCIUM LEVEL 8.8 MG/DL (8.8-10.2); CARBON DIOXIDE LEVEL 27 MEQ/L (21-32); CHLORIDE LEVEL 103 MEQ/L (98-107); CREATININE FOR GFR 1.06 MG/DL (0.70-1.30); GLOMERULAR FILTRATION RATE > 60.0 (>49); GLUCOSE, FASTING 143 MG/DL (70-100); POTASSIUM SERUM 3.2 MEQ/L (3.5-5.1); SODIUM LEVEL 138 MEQ/L (136-145); TOTAL PROTEIN 6.4 GM/DL (6.4-8.2)
[2019-06-16 08:00] VITALS: BP 153/80
[2019-06-16] MEDS: CHLORTHALIDONE 12.5MG PER 1/2 TABLET PO SCH (08:43)
[2019-06-16] MEDS: GABAPENTIN 300 MG CAP PO SCH (08:43)
[2019-06-16] MEDS: amLODIPine 5 MG TAB PO SCH (08:44)
[2019-06-16 08:45] VITALS: BP 153/80
[2019-06-16] MEDS: SENOKOT S TAB PO SCH (08:45)
[2019-06-16] MEDS: METOPROLOL SUCC (TopROL XL) 100MG *XL* TAB PO SCH (08:45)
[2019-06-16] MEDS: PANTOPRAZOLE 40MG INJ (PROTONIX) (C9113) IV SCH (08:46)
[2019-06-16] MEDS: ENOXAPARIN 40 MG/0.4 ML SYRINGE (J1650) SC SCH (08:46)
--- NOTE | 2019-06-16 09:09 | IPNPDOC ---
Text Note Date of Service The patient was seen on 06/16/19. NOTE Patient is seen walking the hallways. He tolerated the liquids yesterday. He is denying any abdominal discomfort, nausea or bloating. He tells me that his urine looks more yellowish weaver are arranged now On examination he looks very comfortable No evidence for jaundice or icteric sclerae Breathing comfortably, breath sounds are clear to auscultation bilaterally with no wheezing Heart rate and rhythm are regular with no murmurs Abdomen is obese, protuberant. Nontender on palpation Labs Significant for continued worsening of his hyperbilirubinemia. Now at 3.5 total bilirubin. Direct bilirubin is 2.7. AST is 2.7 ALT is 212. His previous leukocytosis is resolved Impression and plans Acute cholecystitis Abnormally elevated LFTs particularly his bilirubin which is given an obstructive pattern Constipation improved He tells me he was seen by Dr. Magallanes yesterday does not think he needs any ERCP at that time. Repeat LFTs this morning shows marked improvement of the bilirubin now down to 1.5 the site believe he continues to affect in obstructive pattern at is to have resolved even though the MRCP did not demonstrate a clear bile duct obstruction. Nevertheless at this point he has improved. I'll allow him regular diet. If he tolerates this I told him I will discharge him home and plan for interval cholecystectomy given that it is unclear how long he has the cholecystitis. VS,Fishbone, I+O VS, Fishbone, I+O Laboratory Tests 06/16/19 06:25 Vital Signs Date Time Temp Pulse Resp B/P (MAP) Pulse Ox O2 Delivery O2 Flow Rate FiO2 06/16/19 01:00 98.5 70 18 163/78 (106) 96 Room Air I&O- Last 24 Hours up to 6 AM 06/16/19 05:59 Intake Total 2580 ml Output Total 3900 ml Balance -1320 ml PATTY KENNEY MD Jun 16, 2019 06:53
[2019-06-16] MEDS ORDERED: AUGM875T28 PO (14:17)
--- NOTE | 2019-06-16 18:40 | CR.PDOC ---
General Date of Consultation: Jun 15, 2019 Referring Provider: PATTY HICKEY MD Attending Physician: ORTEGA NGUYEN MD Consultation Primary physician/ hospitalist: -Dr. Hickey Reason for consult: -Abnormal liver panel HPI: 63-year-old male patient with HTN, HLD, DM type II, colon cancer ( rectal cancer s/p low anterior ressection as per admission notes, patient is not clear about the surgery), CAD (s/p [employer] many years ago, on aspirin 325 MG daily), was admitted [facility] for persistent/recurrent upper abdominal pain with cholecystitis. Patient is noted to have abnormal liver panel and GI was consulted for the same. Patient reports his symptoms started around 1 week ago with upper abdominal pain, with one episode of vomiting and pressure-like sensation, when he had ER visit and ruled out of acute DC and was discharged. Patient had recurrent episode of similar pain, which was persisted for at least 3 days, without any associated vomiting but associated with constipation. Patient had ultrasound, CT scan and MRI in this hospitalization, was noted to have acute cholecystitis with sludge and gallbladder. Patient reports his abdominal pain has improved today and is feeling hungry. Patient received lactulose which resolved his constipation. Patient denies any other GI symptoms. Pertinent negative GI symptoms: Patient denies fever, sick contacts, recent travel, loss of appetite, early satiety or unintentional weight loss. No history of hematemesis, melena or hematochezia. Review of Systems: GI: as stated above CVS: No chest pain, No palpitations, No leg swelling. RS: No Shortness of breath, No Wheezing, no cough BOTTLE DEALER: No dizziness, No motor weakness, No sensory problems Hematology: No bruising, No gum bleeding, Musculoskeletal: No joint pain, ambulating well. Skin: No rash : No hematuria, No burning sensation of the urine ENT: No ear discharge/ pain, No dysphagia. Eyes: No photophobia. Jaundice Home medications: reviewed. Antithrombotic agents: -Aspirin 325 mg Medical h/o: As above. Surgical h/o: low anterior ressection with prior colostomy and subsequent closure. Social h/o: Alcohol: -Social.. smoking: Quit, IVDA/ drugs: Denies. Family h/o of GI cancers - None Prior Endoscopies: Follows outside [facility].. ( paient reported he had previously seen Dr. Lwason but no records in [facility]). Prior GI evaluations: -None in [facility] Exam: Vitals: reviewed General: Alert and oriented x 3, not in distress HEENT: NO pallor, no icterus. Normal oropharynx, NO cervical lymph nodes. Chest: symmetric with bilateral clear air entry, CVS: S1, S2 heard, normal, no murmurs . Abdomen: non-distended, no surgical scars, soft, non-tender, no palpable masses, normal bowel sounds heard. Rectal exam: Patient refused / Deferred at this time. Extremities: no pedal edema, pulses palpable. BOTTLE DEALER: no focal motor or sensory deficits. Moves all extremities Skin: no rash. Labs: reviewed. Imaging: reviewed the MRI images with radiologist. Normal CBD, large duodenal diverticulum contributing at least to some deviation in the CBD path. Noted cholecystitis. Gallbladder sludge noted in ultrasound Impression: - Abnormal liver panel in a patient with biliary colic pain and imaging showing cholecystitis -- likely abnormal liver panel related to possible CBD stone vs intermittent compression from large duodenal diverticulum. - Constipation -- likely functional. Following with his own primary endoscopist outside of [facility] for his surveillance for colon cancer. Recommendations: - Patient educated about the test results, possible differential diagnoses and All questions answered. - As patient's symptoms have resolved, will advance diet as tolerated. - Monitor liver panel daily. - If worsening liver panel are worsening symptoms, we will consider ERCP based on clinical course. At this time due to improving symptoms will not be requiring ERCP. - Continue antibiotics as per surgery team for cholecystitis. - Cholecystectomy as per surgery team. - High fiber diet and fiber supplements for constipation. - Upon discharge, patient is educated to follow-up with his primary colonoscopist for his routine surveillance colonoscopies. Elective EGD to further evaluate the duodenal diverticulum. - Recall GI if any change in status. Plan of care discussed with patient, his and primary team. Patient verbalized understanding and agreed with the plan. Allergies Coded Allergies: niacin (Verified Allergy, Intermediate, hives, 06/13/19) Home Medications Scheduled Amlodipine Besylate (Amlodipine Besylate) 5 Mg Tablet, 5 MG PO BID, (Reported) Amoxicillin/Potassium Clav (Augmentin 875-125 Tablet) 1 Each Tablet, 1 TAB PO BID for 10 Days, #20 Aspirin (Aspirin) 325 Mg Tablet, 325 MG PO DAILY, (Reported) Chlorthalidone (Chlorthalidone) 25 Mg Tablet, 12.5 MG DAILY, (Reported) Ezetimibe (Ezetimibe) 10 Mg Tablet, 10 MG PO QHS, (Reported) Gabapentin (Gabapentin) 300 Mg Capsule, 300 MG PO BID, (Reported) Glipizide (Glipizide ER) 5 Mg Tab.er.24, 5 MG PO DAILY, (Reported) Losartan Potassium (Losartan Potassium) 100 Mg Tablet, 100 MG PO QHS, (Reported) Metformin HCl (Metformin HCl) 500 Mg Tablet, 1,000 MG BID, (Reported) Metoprolol Succinate (Metoprolol Succinate) 100 Mg Tab.er.24h, 100 MG PO DAILY, (Reported) Nitroglycerin (Nitroglycerin) 0.4 Mg Tab.subl, 0.4 MG SL NITRO, (Reported) Melrose-3 Acid Ethyl Esters (Melrose-3 Acid Ethyl Esters) 1 Gm Capsule, 1 GRAM PO QHS, (Reported) Omeprazole (Omeprazole) 40 Mg Capsule.dr, 40 MG PO DAILY, (Reported) Rosuvastatin Calcium (Rosuvastatin Calcium) 20 Mg Tablet, 20 MG PO QHS, (Reported) Sitagliptin Phosphate (Januvia) 100 Mg Tablet, 100 MG PO DAILY, (Reported) Scheduled PRN Bisacodyl (Dulcolax) 5 Mg Tablet.dr, 5 MG PO DAILY PRN for CONSTIPATION, (Reported) Indomethacin (Indomethacin) 50 Mg Capsule, 50 MG PO BID PRN for GOUT FLARES, (Reported) Ondansetron (Ondansetron Odt) 4 Mg Tab.rapdis, 4 MG PO Q6H PRN for NAUSEA OR VOMITING, #16 (Reported) Polyethylene Glycol 3350 (Miralax) 119 Gm Powder, 17 GM PO DAILY PRN for CONSTIPATION, #1 (Reported) dilute in 8 ounces of water or juice ORTEGA NGUYEN MD Jun 16, 2019 18:40
== END 2019-06-16 15:25 | disposition home or self-care (01) | DRG 446 ==
LOC: M ED 20:49 → M ED INP 23:54 → ENRESERVTM 06-14 00:22 → ENRESERVDT 06-14 00:22 → M MSPAV 06-14 00:47 → M PED 06-16 00:36
PROVIDERS: ADMIT Surgery; ATTEND Surgery
DX: K80.43 Calculus of bile duct with acute cholecystitis with obstruction (principal); I25.10 Atherosclerotic heart disease of native coronary artery without angina pectoris; Z95.5 Presence of coronary angioplasty implant and graft; I25.2 Old myocardial infarction; E78.00 Pure hypercholesterolemia, unspecified; I10 Essential (primary) hypertension; N40.0 Benign prostatic hyperplasia without lower urinary tract symptoms; H26.9 Unspecified cataract; H91.93 Unspecified hearing loss, bilateral; K59.04 Chronic idiopathic constipation; K21.9 Gastro-esophageal reflux disease without esophagitis; E11.9 Type 2 diabetes mellitus without complications; R19.7 Diarrhea, unspecified; Z85.048 Personal history of other malignant neoplasm of rectum, rectosigmoid junction, and anus; Z90.49 Acquired absence of other specified parts of digestive tract; Z79.84 Long term (current) use of oral hypoglycemic drugs; Z79.82 Long term (current) use of aspirin; Z79.899 Other long term (current) drug therapy; Z88.8 Allergy status to other drugs, medicaments and biological substances

== ENCOUNTER 2019-06-18 16:38 | Inpatient (IN) | payer MEDICARE, BC ==
[~2019-06-18] VITALS: Ht 177.8 cm; Wt 111.7 kg
[~2019-06-18 16:38] MED LIST changes: +AUGM875T28 PO; +BAYE325T12 PO; +DULC5TAB PO; +MIRA3350 PO; +NITR0.4S14 SL; +ONDA4TAB6 PO; +magnesium citrate
[2019-06-18] MEDS ORDERED: AMOX875T2 PO (16:49)
[2019-06-18] MEDS ORDERED: HYDR-2808 PO (16:49)
[2019-06-18] MEDS ORDERED: ONDA-83 (16:49)
[2019-06-18 17:27] LABS: BASO # 0.1 10^3/uL (0.0-0.2); BASO % 0.4 % (0.0-1.0); EOS # 0.3 10^3/uL (0.0-0.5); EOS % 2.1 % (0.0-3.0); HEMATOCRIT 48.1 % (42.0-52.0); HEMOGLOBIN 15.8 g/dl (13.5-17.5); LYMPH # 2.1 10^3/uL (1.5-5.0); LYMPH % 17.5 % (24.0-44.0); MEAN CORPUSCULAR HEMOGLOBIN 30.9 pg (27.0-33.0); MEAN CORPUSCULAR HGB CONC 32.8 g/dl (32.0-36.5); MEAN CORPUSCULAR VOLUME 94.1 fl (80.0-96.0); MONO # 0.8 10^3/uL (0.0-0.8); MONO % 6.5 % (0.0-5.0); NEUTROPHILS # 8.7 10^3/uL (1.5-8.5); NEUTROPHILS % 72.7 % (36.0-66.0); PLATELET COUNT, AUTOMATED 358 10^3/uL (150-450); RED BLOOD COUNT 5.11 10^6/uL (4.30-6.10)
[2019-06-18] MEDS ORDERED: ONDANSETRON 4MG/2ML VIAL (J2405) IV ONE (17:45)
[2019-06-18] MEDS ORDERED: NS 1,000 ML IV ONE ×2 (17:45→19:30)
[2019-06-18] MEDS ORDERED: MORPHINE 4 MG/ML 1ML VIAL/SYRINGE (J2270) IV PRN (17:45)
[2019-06-18 18:06] LABS: ALBUMIN 3.1 GM/DL (3.2-5.2); ALT/SGPT 355 U/L (12-78); BILIRUBIN,DIRECT 1.7 MG/DL (0.0-0.2); BILIRUBIN,TOTAL 2.5 MG/DL (0.2-1.0); BLOOD UREA NITROGEN 15 MG/DL (7-18); CALCIUM LEVEL 8.8 MG/DL (8.8-10.2); CARBON DIOXIDE LEVEL 27 MEQ/L (21-32); CHLORIDE LEVEL 101 MEQ/L (98-107); CK-MB VALUE MASS < 1.0 NG/ML (<3.6); CPK CREATINE PHOSPHOKINASE 48 U/L (39-308); CREATININE FOR GFR 1.18 MG/DL (0.70-1.30); GLOMERULAR FILTRATION RATE > 60.0 (>49); GLUCOSE, FASTING 188 MG/DL (70-100); MB/CK RELATIVE INDEX 2.08 (< OR =4); POTASSIUM SERUM 3.4 MEQ/L (3.5-5.1); SODIUM LEVEL 139 MEQ/L (136-145); TOTAL PROTEIN 6.7 GM/DL (6.4-8.2); TROPONIN I < 0.02 NG/ML (< 0.10)
[2019-06-18] MEDS ORDERED: PIPERACILLIN/TAZOBACTAM SOD 3.375 GM in D5W MINI-BAG PLUS 50 ML IV ONE (18:30)
[2019-06-18] MEDS ORDERED: ISOVUE-370 76% 100ML VIAL (Q9967) As Ordered ONE (18:30)
[2019-06-18 18:42] LABS: LIPASE 34554 U/L (73-393)
--- NOTE | 2019-06-18 19:35 | REPVR ---
PROCEDURE INFORMATION: Exam: CT Abdomen And Pelvis With Contrast Exam date and time: 06/18/2019 6:24 PM Age: 63 years old Clinical indication: Abdominal pain; Generalized TECHNIQUE: Imaging protocol: Computed tomography of the abdomen and pelvis with intravenous contrast. Radiation optimization: All CT scans at this facility use at least one of these dose optimization techniques: automated exposure control; mA and/or kV adjustment per patient size (includes targeted exams where dose is matched to clinical indication); or iterative reconstruction. Contrast material: ISOVUE 370; Contrast volume: 100 ml; Contrast route: IV; COMPARISON: CT ABD PELVIS W/O CONTRAST 06/13/2019 10:11 PM FINDINGS: Liver: Diffuse hepatic steatosis. Gallbladder and bile ducts: Enlarged gallbladder with diffuse gallbladder wall thickening and pericholecystic fat stranding. Pancreas: Moderate fat stranding surrounding the pancreas. Spleen: Unremarkable. Adrenals: Unremarkable. Kidneys and ureters: No hydronephrosis or stones. Stomach and bowel: Approximately 3.4 cm duodenal diverticulum. Mild to moderate fat stranding surrounding the 2nd and 3rd portions of the duodenum and pancreatic head. Prominent distal colonic diverticulosis without evidence of acute diverticulitis. Appendix: No evidence of appendicitis. Intraperitoneal space: No pneumoperitoneum. No significant fluid collection. Vasculature: Atherosclerotic calcifications of the aorta and major branches. Lymph nodes: No enlarged lymph nodes. Bladder: Diffuse wall thickening of the urinary bladder. Reproductive: Unremarkable as visualized. Bones/joints: Multilevel degenerative changes of the visualized spine. No acute osseous lesion or fracture. Soft tissues: Unremarkable. IMPRESSION: 1. Redemonstration of acute cholecystitis, however now there are findings concerning for concurrent acute pancreatitis. No gallstones are identified, however there is a 3.4 cm duodenal diverticulum, which may be contributing to the previously mentioned pathologies (possible compression upon the adjacent distal common bile duct). Follow-up at the discretion of GI/surgery. 2. Redemonstration of diffuse bladder wall thickening. Recommend correlation with urinalysis. 3. Other findings, as above. Electronically signed by: Antwan Lauren On 06/18/2019 19:34:43 PM
[2019-06-18] MEDS ORDERED: BISACODYL 5 MG TAB PO PRN (21:00)
[2019-06-18] MEDS ORDERED: MIRALAX *UNIT DOSE* 17GM PACKET PO PRN (21:00)
[2019-06-18] MEDS ORDERED: ONDANSETRON 4 MG ORAL DISINTEGRATING TAB (Q0162 PER 1MG) PO PRN (21:00)
[2019-06-18] MEDS ORDERED: INDOMETHACIN 25 MG CAP PO PRN (21:00)
[2019-06-18] MEDS ORDERED: NITROGLYCERIN 0.4 MG SUBL TABLET SL PRN (21:00)
[2019-06-18 22:46] VITALS: BP 91/60
[2019-06-18 22:48] VITALS: BP 136/82
[2019-06-18] MEDS: amLODIPine 5 MG TAB PO SCH (22:48)
[2019-06-18] MEDS: GABAPENTIN 300 MG CAP PO SCH (22:48)
[2019-06-18] MEDS: ROSUVASTATIN 10 MG TAB (CRESTOR) PO SCH (22:49)
[2019-06-18] MEDS: LOSARTAN 50 MG TAB PO SCH (22:49)
[2019-06-18] MEDS: EZETIMIBE 10 MG TAB (ZETIA) PO SCH (22:49)
[2019-06-19] MEDS: PIPERACILLIN/TAZOBACTAM SOD 3.375 GM in D5W MINI-BAG PLUS 50 ML IV SCH ×4 (02:25→19:49)
--- NOTE | 2019-06-19 03:43 | HPEPDOC ---
General Date of Admission 06/18/2019 Date of Service: Jun 18, 2019 Attending Physician: YUMIKO ZAMBRANO MD Chief Complaint The patient is a 63-year-old male admitted with a reason for visit of Abdominal Pain. Source: Patient Exam Limitations: No limitations Timing/Duration: Week(s), Getting worse Severity: Severe Associated Symptoms: Other (abdominal pain) History of Present Illness 63-year-old man with HTN, HLD, DM type II, remote rectal cancer s/p resection, CAD s/p PCI, who was recently admitted for recurrent upper abdominal pain and found to have cholecystitis with gall bladder sludge and no visualized stones but noted duodenal diverticulum, abnormal liver panel and was admitted for a few days by surgery for IV antibiotics with improvement in his labs and symptoms and GI was consulted with the ultimate decision to discharge him on 06/16 to follow up outpatient for an eventual cholecystectomy after inflammation subsides. He returns to the ED with severe upper abdominal pain that did respond to his home norco and so he decided he was returning to the emergency room. In the ED he was hypertensive to 152/76 and otherwise afebrile and saturating well on room air with a HR of 57. Work up was notable for leukocytosis to 12, rising LFTs to AST 544, ALT 355, Tbili 2.5, Dbili 1.7, alk phos 643, [place] [address], lactate of 2.8-->1.3 after fluids, Cr 1.[address] A/P showed acute cholecystitis and now acute pancreatitis as well with no gallstones but a 3.4 duodenal diverticulum that is suspected to have compressive effects on the CBD. GI was consulted from the ED and Dr. Magallanes recommended admission to medicine with plan for likely scope tomorrow AM. While in the ED, he was given zofran, zosyn, 2L NS and morphine and admitted to the floor. Home Medications Scheduled Amlodipine Besylate (Amlodipine Besylate) 5 Mg Tablet, 5 MG PO BID, (Reported) Amoxicillin/Potassium Clav (Amox-Clav 875-125 mg Tablet) 1 Each Tablet, 1 TAB PO BID, (Reported) STARTED ON 06/16/2019 Aspirin (Aspirin) 325 Mg Tablet, 325 MG PO DAILY, (Reported) Chlorthalidone (Chlorthalidone) 25 Mg Tablet, 12.5 MG DAILY, (Reported) Ezetimibe (Ezetimibe) 10 Mg Tablet, 10 MG PO QHS, (Reported) Gabapentin (Gabapentin) 300 Mg Capsule, 300 MG PO BID, (Reported) Glipizide (Glipizide ER) 5 Mg Tab.er.24, 5 MG PO DAILY, (Reported) Losartan Potassium (Losartan Potassium) 100 Mg Tablet, 100 MG PO QHS, (Reported) Metformin HCl (Metformin HCl) 500 Mg Tablet, 1,000 MG BID, (Reported) Metoprolol Succinate (Metoprolol Succinate) 100 Mg Tab.er.24h, 100 MG PO DAILY, (Reported) Nitroglycerin (Nitroglycerin) 0.4 Mg Tab.subl, 0.4 MG SL NITRO, (Reported) Mayfield-3 Acid Ethyl Esters (Mayfield-3 Acid Ethyl Esters) 1 Gm Capsule, 1 GRAM PO QHS, (Reported) Omeprazole (Omeprazole) 40 Mg Capsule.dr, 40 MG PO DAILY, (Reported) Rosuvastatin Calcium (Rosuvastatin Calcium) 20 Mg Tablet, 20 MG PO QHS, (Reported) Sitagliptin Phosphate (Januvia) 100 Mg Tablet, 100 MG PO DAILY, (Reported) Scheduled PRN Bisacodyl (Dulcolax) 5 Mg Tablet.dr, 5 MG PO DAILY PRN for CONSTIPATION, (Reported) Hydrocodone/Acetaminophen (Hydrocodone-Acetamin 5-300 mg) 1 Each Tablet, 1 TAB PO QID PRN for PAIN, (Reported) Indomethacin (Indomethacin) 50 Mg Capsule, 50 MG PO BID PRN for GOUT FLARES, (Reported) Ondansetron (Ondansetron Odt) 4 Mg Tab.rapdis, 4 MG PO Q6H PRN for NAUSEA OR VOMITING, (Reported) Polyethylene Glycol 3350 (Miralax) 119 Gm Powder, 17 GM PO DAILY PRN for CONSTIPATION, (Reported) dilute in 8 ounces of water or juice Allergies Coded Allergies: niacin (Verified Allergy, Intermediate, hives, 06/13/19) Past Medical History Medical History 1. Coronary artery disease with prior angioplasty and stent placement in 2003, prior history of MO 2. Hypercholesterolemia 3. Hypertension 4. History of sleep apnea not on CPAP 5. History of rectal cancer status post low anterior resection 6. BPH 7. Gastroesophageal reflux disease 8. Diabetes. 9. Cataracts Surgical History 1. Angioplasty with stent placement 2004. 2. Low anterior resection 3. TURP 2 4. Carpal Tunnel release on the left wrist. Family History Significant Family History: No pertinent family hx Social History * Smoker: Denies Alcohol: Denies Drugs: denies Recent Travel/Sick Contacts: Denies: Recent travel, Recent sick contacts Denies smoking, alcohol use, or recreational drug use. A-FIB/CHADSVASC A-FIB History Current/History of A-Fib/PAF?: No Current PO Anticoag Therapy: No Age/Risk Factor Scoring CHADSVASC: CHADSVASC Response (Comments) Value Age Risk Factor Age 65-74 years old 1 Gender Risk Factor Male 0 Hx of CHF No 0 Hx of HTN Yes 1 Hx of Stroke/TIA/or VTE No 0 Hx of Diabetes Yes 1 Hx of Vascular Disease Yes 1 Total 4 Treatment Treatment ordered: NONE Reason Anticoagulant not given: Not indicated/[id number] Review of Systems Constitutional: Denies: Chills, Fever, Night Sweats Eyes: Denies: Pain, Vision change ENT: Denies: Head Aches, Ear Pain, Dysphagia Skin: Denies: Rash, Lesions, Breakdown Pulmonary: Denies: Dyspnea, Cough Cardiovascular: Denies: Chest Pain, Palpitations, Orthopnea, Paroxysmal Noc. Dyspnea, Lt Headedness Gastrointestinal: Reports: Nausea, Abdominal Pain, Constipation (chronic); Denies: Diarrhea, Melena, Hematochezia Genitourinary: Denies: Dysuria, Frequency, Incontinence, Retention Hematologic: Denies: Bruising, Bleeding Excessively Endocrine: Denies: Polydipsia, Polyphagia, Polyuria, Heat Intolerance, Cold Intolerance, Other Endocrine Sx Musculoskeletal: Denies: Neck Pain, Back Pain, Joint Pain, Muscle Pain, Spasms Neurological: Denies: Weakness, Numbness, Change in speech, Confusion Psych: Reports: Mood Normal; Denies: Depression, Memory Issues Physical Examination General Exam: Positive: Alert, No Acute Distress, Other (obese) Eye Exam: Positive: PERRLA, Conjunctiva & lids normal, EOMI; Negative: Sclera icteric ENT Exam: Positive: Atraumatic, Mucous membr. moist/pink, Pharynx Normal Neck Exam: Positive: Supple; Negative: JVD, thyromegaly Chest Exam: Positive: Clear to auscultation, Normal air movement Heart Exam: Positive: Rate Normal, Regular Rhythm, Normal S1, Normal S2; Negative: Murmurs, Rubs Telemetry: Positive: No significant arrhythmia Abdomen Exam: Positive: Soft, Tenderness (Right upper and epigastric pain, no rebound, no involuntary guarding), Other (obese) Extremity Exam: Positive: Normal pulses; Negative: Clubbing, Cyanosis, Edema Skin Exam: Positive: Nl turgor and temperature; Negative: Breakdown, Lesion Neuro Exam: Positive: Normal Speech, Strength at 5/5 X4 ext, Cranial Nerves 3- 12 NL Psych Exam: Positive: Mental status NL, Mood NL, Oriented x 3 Vital Signs Vital Signs Date Time Temp Pulse Resp B/P (MAP) Pulse Ox O2 Delivery O2 Flow Rate FiO2 06/18/19 20:45 61 127/65 (85) 95 Room Air 06/18/19 17:50 22 06/18/19 16:38 96.3 Laboratory Data Labs 24H Laboratory Tests 2 06/18/19 17:05: Immature Granulocyte % (Auto) 0.8, Neutrophils (%) (Auto) 72.7H, Lymphocytes (%) (Auto) 17.5L, Monocytes (%) (Auto) 6.5H, Eosinophils (%) (Auto) 2.1, Basophils (%) (Auto) 0.4, Neutrophils # (Auto) 8.7H, Lymphocytes # (Auto) 2.1, Monocytes # (Auto) 0.8, Eosinophils # (Auto) 0.3, Basophils # (Auto) 0.1, Nucleated Red Blood Cells % (auto) 0.0, Anion Gap 11, Glomerular Filtration Rate > 60.0, Calcium Level 8.8, Total Bilirubin 2.5#H, Direct Bilirubin 1.7H, Aspartate Amino Transf (AST/SGOT) 544H, Alanine Aminotransferase (ALT/SGPT) 355H, Alkaline Phosphatase 643H, Total Creatine Kinase 48, Creatine Kinase MB < 1.0, Creatine Kinase MB Relative Index 2.08, Troponin I < 0.02, Total Protein 6.7, Albumin 3.1L, Albumin/Globulin Ratio 0.86L, Lipase [id number] 06/18/19 18:08: Lactic Acid Level 2.6*H 06/18/19 22:55: Lactic Acid Followup at 4 Hours 1.3 CBC/BMP Laboratory Tests 06/18/19 17:05 Microbiology Microbiology 06/18/19 Blood Culture, Received Pending 06/18/19 Blood Culture, Received Pending Assessment/Plan 63-year-old man with HTN, HLD, DM type II, remote rectal cancer s/p resection, CAD s/p PCI, who was recently admitted for recurrent upper abdominal pain and found to have cholecystitis with gall bladder sludge and no visualized stones but noted duodenal diverticulum, abnormal liver panel and was admitted for a few days by surgery for IV antibiotics with improvement in his labs and symptoms and GI was consulted with the ultimate decision to discharge him on 06/16 to follow up outpatient for an eventual cholecystectomy who returned to the ED with severe upper abdominal pain now with rising LFTs, leukocytosis and concurrent cholecystitis and pancreatitis without stones but noted duodenal diverticulum that is suspected to have compressive effects on the CBD, now placed on zosyn pending GI evaluation. Plan: Pancreatitis: Likely 2/2 obstructive effects of duodenal diverticulum, without evidence of gallstone -s/p 2L in the ED -continue fluids at 150cc/hr -NPO -GI consulted, possibly getting EGD to further evaluate the duodenal diverticulum. Cholecystitis: Likely 2/2 obstructive effects of duodenal diverticulum, without evidence of gallstone, with sludge. -placed on pip/tazo -fluids 105cc/hr -GI consulted -Was seen by Dr. Hickey recently who is deferring cholecystectomy for a few weeks given ongoing inflammation Abdominal pain: 2/2 pancreatitis and cholecystitis with elevated LFTs and inflammation noted on imaging -morphine 4Q4H PRN for severe pain -tylenol for mild pain History of rectal adenoCA: - Upon discharge, patient is educated to follow-up with his primary colonoscopist for his routine surveillance colonoscopies. - Recall GI if any change in status CAD: -continue [id number] Hypertension: -continue amlodipine, losartan, toprol XL, chlorthalidone Hyperlipidemia: -continue ezetimibe, rosuvastatin Gout: -continue home PRN indomethacin Constipation: chronic -PRN dulcolax DVT ppx: Lovenox Dispo: Pending GI evaluation and clinical improvement Plan / VTE VTE Prophylaxis Ordered?: Yes YUMIKO ZAMBRANO MD Jun 19, 2019 03:43
[2019-06-19] MEDS: NS 1,000 ML IV SCH ×2 (03:45→08:59)
[2019-06-19 06:17] LABS: HEMATOCRIT 40.8 % (42.0-52.0); MEAN CORPUSCULAR HEMOGLOBIN 31.8 pg (27.0-33.0); MEAN CORPUSCULAR HGB CONC 34.3 g/dl (32.0-36.5); MEAN CORPUSCULAR VOLUME 92.7 fl (80.0-96.0); PLATELET COUNT, AUTOMATED 284 10^3/uL (150-450); WHITE BLOOD COUNT 10.6 10^3/uL (4.0-10.0)
[2019-06-19 06:22] VITALS: BP 111/54
[2019-06-19 06:50] LABS: ALBUMIN 2.6 GM/DL (3.2-5.2); ALT/SGPT 466 U/L (12-78); BILIRUBIN,TOTAL 1.8 MG/DL (0.2-1.0); BLOOD UREA NITROGEN 13 MG/DL (7-18); CALCIUM LEVEL 8.4 MG/DL (8.8-10.2); CARBON DIOXIDE LEVEL 24 MEQ/L (21-32); CHLORIDE LEVEL 108 MEQ/L (98-107); CREATININE FOR GFR 1.09 MG/DL (0.70-1.30); GLOMERULAR FILTRATION RATE > 60.0 (>49); GLUCOSE, FASTING 133 MG/DL (70-100); MAGNESIUM LEVEL 1.7 MG/DL (1.8-2.4); POTASSIUM SERUM 3.6 MEQ/L (3.5-5.1); SODIUM LEVEL 140 MEQ/L (136-145); TOTAL PROTEIN 6.7 GM/DL (6.4-8.2)
[2019-06-19] MEDS ORDERED: LR 1,000 ML IV ONE (08:45)
[2019-06-19] MEDS: LR 1,000 ML IV SCH ×3 (08:45→19:53)
[2019-06-19] MEDS: GABAPENTIN 300 MG CAP PO SCH ×2 (08:57→19:52)
[2019-06-19] MEDS: CHLORTHALIDONE 12.5MG PER 1/2 TABLET PO SCH (08:57)
[2019-06-19] MEDS: OMEPRAZOLE 20 MG CAP PO SCH (08:57)
[2019-06-19] MEDS: ASPIRIN 325 MG TAB PO SCH (08:57)
[2019-06-19] MEDS: amLODIPine 5 MG TAB PO SCH ×2 (08:58→19:53)
[2019-06-19] MEDS: ENOXAPARIN 40 MG/0.4 ML SYRINGE (J1650) SC SCH (08:58)
[2019-06-19] MEDS: METOPROLOL SUCC (TopROL XL) 100MG *XL* TAB PO SCH (08:58)
--- NOTE | 2019-06-19 12:23 | IPNPDOC ---
Subjective Date Seen The patient was seen on 06/19/19. Subjective Chief Complaint/HPI Patient is still complaining of right upper quadrant pain with some nausea General: Denies: ROS Unobtainable, Chills, Night Sweats, Fatigue, Malaise, Normal Appetite, Other Symptoms Constitutional: Denies: Chills, Fever, Malaise, Night Sweats, Weakness, Fatigue, Weight Loss, Lethargy, Other Pulmonary: Denies: Dyspnea, Cough, Pleuritic Chest Pain, Other Symptoms Cardiovascular: Denies: Chest Pain, Palpitations, Orthopnea, Paroxysmal Noc. Dyspnea, Edema, Lt Headedness, Other Symptoms Gastrointestinal: Reports: Nausea, Abdominal Pain Genitourinary: Denies: Dysuria, Frequency, Incontinence, Hematuria, Retention, Other Symptoms Musculoskeletal: Denies: Neck Pain, Back Pain, Shoulder Pain, Arm Pain, Hand Pain, Leg Pain, Foot Pain, Joint Pain, Muscle Pain, Spasms, Other Symptoms Neurological: Denies: Weakness, Numbness, Incoordination, Change in speech, Confusion, Seizures, Other Symptoms Objective Physical Examination Eye Exam: Negative: Sclera icteric Chest Exam: Positive: Clear to auscultation, Normal air movement Heart Exam: Positive: Rate Normal, Regular Rhythm, Normal S1, Normal S2; Negative: Murmurs, Rubs Telemetry: Positive: No significant arrhythmia Abdomen Exam: Positive: Soft, Tenderness (Right upper and epigastric pain, no rebound, no involuntary guarding), Other (obese) Extremity Exam: Positive: Normal pulses; Negative: Clubbing, Cyanosis, Edema Skin Exam: Positive: Nl turgor and temperature; Negative: Breakdown, Lesion Neuro Exam: Positive: Normal Speech, Strength at 5/5 X4 ext, Cranial Nerves 3- 12 NL Assessment /Plan Problems (1) Acute cholecystitis Status: Acute Problem Text: Acute pancreatitis, most likely secondary to duodenal diver ticulum. There is no evidence of gallstones but there was some sludge on a CAT scan . She was started on Zosyn IV fluids started at Ringer lactate and 150 mL per hour Discussed with the GI, patient will be scheduled for ERCP today Continue present meds (2) Acute pancreatitis Status: Acute Problem Text: Acute pancreatitis, most likely secondary to obstructive effects of diverticulum as well as possible bile duct sludge Continue IV fluid Ringers lactate 150 mL per hour pt is currently nothing by mouth as scheduled for ERCP today Continue present meds (3) HTN (hypertension) Status: Chronic Problem Text: Continue home meds Plan/VTE VTE Prophylaxis Ordered?: Yes VS, I&O, 24H, Fishbone Vital Signs/I&O Vital Signs Date Time Temp Pulse Resp B/P (MAP) Pulse Ox O2 Delivery O2 Flow Rate FiO2 06/19/19 08:58 57 111/54 06/19/19 06:22 99.5 16 96 Room Air I&O- Last 24 Hours up to 6 AM 06/19/19 05:59 Intake Total 2120 ml Output Total 620 ml Balance 1500 ml Laboratory Data 24H LABS Laboratory Tests 2 06/18/19 17:05: Immature Granulocyte % (Auto) 0.8, Neutrophils (%) (Auto) 72.7H, Lymphocytes (%) (Auto) 17.5L, Monocytes (%) (Auto) 6.5H, Eosinophils (%) (Auto) 2.1, Basophils (%) (Auto) 0.4, Neutrophils # (Auto) 8.7H, Lymphocytes # (Auto) 2.1, Monocytes # (Auto) 0.8, Eosinophils # (Auto) 0.3, Basophils # (Auto) 0.1, Nucleated Red Blood Cells % (auto) 0.0, Anion Gap 11, Glomerular Filtration Rate > 60.0, Calcium Level 8.8, Total Bilirubin 2.5#H, Direct Bilirubin 1.7H, Aspartate Amino Transf (AST/SGOT) 544H, Alanine Aminotransferase (ALT/SGPT) 355H, Alkaline Phosphatase 643H, Total Creatine Kinase 48, Creatine Kinase MB < 1.0, Creatine Kinase MB Relative Index 2.08, Troponin I < 0.02, Total Protein 6.7, Albumin 3.1L, Albumin/Globulin Ratio 0.86L, Lipase 15040B 06/18/19 18:08: Lactic Acid Level 2.6*H 06/18/19 22:55: Lactic Acid Followup at 4 Hours 1.3 06/19/19 06:02: Nucleated Red Blood Cells % (auto) 0.0, Anion Gap 8, Glomerular Filtration Rate > 60.0, Calcium Level 8.4L, Total Bilirubin 1.8H, Aspartate Amino Transf (AST/SGOT) 574H, Alanine Aminotransferase (ALT/SGPT) 466H, Alkaline Phosphatase 570H, Total Protein 6.7, Albumin 2.6L, Albumin/Globulin Ratio 0.63L, Lactic Acid Level 0.9, Magnesium Level 1.7L CBC/BMP Laboratory Tests 06/18/19 17:05 06/19/19 06:02 Microbiology Microbiology 06/18/19 Blood Culture, Received Pending 06/18/19 Blood Culture, Received Pending RALPH BENNETT MD Jun 19, 2019 12:23
[2019-06-19 14:21] VITALS: BP 136/66
[2019-06-19] MEDS: LOSARTAN 50 MG TAB PO SCH (19:52)
[2019-06-19] MEDS: ROSUVASTATIN 10 MG TAB (CRESTOR) PO SCH (19:52)
[2019-06-19] MEDS: EZETIMIBE 10 MG TAB (ZETIA) PO SCH (19:53)
[2019-06-19] MEDS ORDERED: IBUPROFEN 600 MG TAB PO PRN (20:15)
[2019-06-19 22:00] VITALS: BP 137/69
[2019-06-20] MEDS: PIPERACILLIN/TAZOBACTAM SOD 3.375 GM in D5W MINI-BAG PLUS 50 ML IV SCH ×4 (01:56→20:25)
[2019-06-20] MEDS: LR 1,000 ML IV SCH ×4 (04:11→22:06)
[2019-06-20 06:00] VITALS: BP 141/71
[2019-06-20 06:29] LABS: BASO % 0.3 % (0.0-1.0); EOS # 0.4 10^3/uL (0.0-0.5); EOS % 2.5 % (0.0-3.0); HEMATOCRIT 42.2 % (42.0-52.0); HEMOGLOBIN 14.4 g/dl (13.5-17.5); LYMPH # 2.4 10^3/uL (1.5-5.0); LYMPH % 17.1 % (24.0-44.0); MEAN CORPUSCULAR HEMOGLOBIN 31.6 pg (27.0-33.0); MEAN CORPUSCULAR HGB CONC 34.1 g/dl (32.0-36.5); MEAN CORPUSCULAR VOLUME 92.5 fl (80.0-96.0); MONO # 0.6 10^3/uL (0.0-0.8); MONO % 4.4 % (0.0-5.0); NEUTROPHILS # 10.7 10^3/uL (1.5-8.5); NEUTROPHILS % 75.1 % (36.0-66.0); PLATELET COUNT, AUTOMATED 342 10^3/uL (150-450); RED BLOOD COUNT 4.56 10^6/uL (4.30-6.10); WHITE BLOOD COUNT 14.3 10^3/uL (4.0-10.0)
[2019-06-20 06:59] LABS: ALBUMIN 2.9 GM/DL (3.2-5.2); ALT/SGPT 270 U/L (12-78); BILIRUBIN,TOTAL 0.8 MG/DL (0.2-1.0); BLOOD UREA NITROGEN 7 MG/DL (7-18); CALCIUM LEVEL 9.1 MG/DL (8.8-10.2); CARBON DIOXIDE LEVEL 27 MEQ/L (21-32); CHLORIDE LEVEL 109 MEQ/L (98-107); GLOMERULAR FILTRATION RATE > 60.0 (>49); GLUCOSE, FASTING 172 MG/DL (70-100); LIPASE 3860 U/L (73-393); POTASSIUM SERUM 3.6 MEQ/L (3.5-5.1); SODIUM LEVEL 142 MEQ/L (136-145)
[2019-06-20] MEDS: amLODIPine 5 MG TAB PO SCH ×2 (08:18→20:28)
[2019-06-20] MEDS: GABAPENTIN 300 MG CAP PO SCH ×2 (08:18→20:25)
[2019-06-20] MEDS: ASPIRIN 325 MG TAB PO SCH (08:18)
[2019-06-20] MEDS: OMEPRAZOLE 20 MG CAP PO SCH (08:18)
[2019-06-20] MEDS: CHLORTHALIDONE 12.5MG PER 1/2 TABLET PO SCH (08:18)
[2019-06-20] MEDS: ENOXAPARIN 40 MG/0.4 ML SYRINGE (J1650) SC SCH (08:19)
[2019-06-20] MEDS: METOPROLOL SUCC (TopROL XL) 100MG *XL* TAB PO SCH (08:19)
--- NOTE | 2019-06-20 10:29 | IPN ---
DATE: 06/20/2019 The patient is here for gallstone pancreatitis and is overall stable. However, his white count did bump a little bit overnight and his lipase is still elevated, although much better than it was previously. His liver function tests are down from yesterday's but still elevated. Bilirubin is improved as well. Overall, he is not complaining of any pain but feels a little bloated. On his physical exam, his abdomen is mildly distended in the upper abdomen without any guarding, rebound or peritoneal signs. IMPRESSION/PLAN: The patient has had an episode of gallstone pancreatitis, has had a previous common bile duct stone that passed, and thus, at this point, I would agree with Dr. Hickey that the patient should undergo a laparoscopic cholecystectomy prior to discharge. I would like his liver function tests and lipase to improve prior to proceeding with operative intervention and it is appropriate as Dr. Hickey has scheduled his laparoscopic cholecystectomy on Saturday barring any further complications or increase in liver function tests. If they do increase again or if he has increasing pain, I would recommend a repeat CAT scan to rule out any pancreatic complication, but more importantly he may need an endoscopic retrograde cholangiopancreatography (ERCP) despite a negative magnetic resonance cholangiopancreatography (MRCP).
--- NOTE | 2019-06-20 10:50 | IPNPDOC ---
Subjective Date Seen The patient was seen on 06/20/19. Subjective Chief Complaint/HPI Patient is asymptomatic. No more abdominal pain, no nausea, vomiting General: Denies: ROS Unobtainable, Chills, Night Sweats, Fatigue, Malaise, Normal Appetite, Other Symptoms Constitutional: Denies: Chills, Fever, Malaise, Night Sweats, Weakness, Fatigue, Weight Loss, Lethargy, Other Pulmonary: Denies: Dyspnea, Cough, Pleuritic Chest Pain, Other Symptoms Cardiovascular: Denies: Chest Pain, Palpitations, Orthopnea, Paroxysmal Noc. Dyspnea, Edema, Lt Headedness, Other Symptoms Gastrointestinal: Denies: Nausea, Vomiting, Abdominal Pain, Diarrhea, Constipation, Melena, Hematochezia, Other Symptoms Hematologic: Denies: Bruising, Bleeding Excessively, Petecchia, Purpura, Enlarged Lymph Nodes, Other Hematologic Endocrine: Denies: Polydipsia, Polyphagia, Polyuria, Heat Intolerance, Cold Intolerance, Other Endocrine Sx Musculoskeletal: Denies: Neck Pain, Back Pain, Shoulder Pain, Arm Pain, Hand Pain, Leg Pain, Foot Pain, Joint Pain, Muscle Pain, Spasms, Other Symptoms Neurological: Denies: Weakness, Numbness, Incoordination, Change in speech, Confusion, Seizures, Other Symptoms Objective Physical Examination Eye Exam: Negative: Sclera icteric Chest Exam: Positive: Clear to auscultation, Normal air movement Heart Exam: Positive: Rate Normal, Regular Rhythm, Normal S1, Normal S2; Negative: Murmurs, Rubs Telemetry: Positive: No significant arrhythmia Abdomen Exam: Positive: Soft, Tenderness (Right upper and epigastric pain, no rebound, no involuntary guarding), Other (obese) Extremity Exam: Positive: Normal pulses; Negative: Clubbing, Cyanosis, Edema Skin Exam: Positive: Nl turgor and temperature; Negative: Breakdown, Lesion Neuro Exam: Positive: Normal Speech, Strength at 5/5 X4 ext, Cranial Nerves 3- 12 NL Assessment /Plan Problems (1) Acute cholecystitis Status: Acute Problem Text: Acute pancreatitis, most likely secondary to duodenal diverticulum. There is no evidence of gallstones but there was some sludge on a CAT scan Patient is currently on Zosyn IV fluids started at [facility] lactate and 150 mL per hour ERCP was canceled yesterday Maia is scheduled for laparoscopic cholecystectomy on Saturday His liver enzymes have significantly coming down, AST 114, AST 270, ALP 491, lipase 3860 (2) Acute pancreatitis Status: Acute Problem Text: Acute pancreatitis, most likely secondary to obstructive effects of diverticulum as well as possible bile duct sludge Continue IV fluid Ringers lactate 150 mL per hour Patient on clear liquid diet ERCP was canceled Further, as per GI (3) HTN (hypertension) Status: Chronic Problem Text: Continue home meds Plan/VTE VTE Prophylaxis Ordered?: Yes VS, I&O, 24H, Fishbone Vital Signs/I&O Vital Signs Date Time Temp Pulse Resp B/P (MAP) Pulse Ox O2 Delivery O2 Flow Rate FiO2 06/20/19 08:19 63 141/71 06/20/19 06:00 99.5 18 93 Room Air I&O- Last 24 Hours up to 6 AM 06/20/19 06:00 Intake Total 4013 ml Output Total 4250 ml Balance -237 ml Laboratory Data 24H LABS Laboratory Tests 2 06/20/19 06:04: Immature Granulocyte % (Auto) 0.6, Neutrophils (%) (Auto) 75.1H, Lymphocytes (%) (Auto) 17.1L, Monocytes (%) (Auto) 4.4, Eosinophils (%) (Auto) 2.5, Basophils (%) (Auto) 0.3, Neutrophils # (Auto) 10.7H, Lymphocytes # (Auto) 2.4, Monocytes # (Auto) 0.6, Eosinophils # (Auto) 0.4, Basophils # (Auto) 0.0, Nucleated Red Blood Cells % (auto) 0.0, Anion Gap 6L, Glomerular Filtration Rate > 60.0, Calcium Level 9.1, Total Bilirubin 0.8#, Aspartate Amino Transf (AST/SGOT) 114H, Alanine Aminotransferase (ALT/SGPT) 270H, Alkaline Phosphatase 491H, Total Protein 7.0, Albumin 2.9L, Albumin/Globulin Ratio 0.71L, Lipase 3860H CBC/BMP Laboratory Tests 06/20/19 06:04 Microbiology Microbiology 06/18/19 Blood Culture - Preliminary, Resulted No growth after 24 hours . All specim... 06/18/19 Blood Culture - Preliminary, Resulted No growth after 24 hours . All specim... RALPH BENNETT MD Jun 20, 2019 10:50
[2019-06-20 13:35] VITALS: BP 142/71
[2019-06-20] MEDS: EZETIMIBE 10 MG TAB (ZETIA) PO SCH (20:25)
[2019-06-20] MEDS: ROSUVASTATIN 10 MG TAB (CRESTOR) PO SCH (20:25)
[2019-06-20] MEDS: LOSARTAN 50 MG TAB PO SCH (20:28)
[2019-06-20 22:00] VITALS: BP 143/71
[2019-06-21] MEDS: PIPERACILLIN/TAZOBACTAM SOD 3.375 GM in D5W MINI-BAG PLUS 50 ML IV SCH ×4 (01:56→20:09)
[2019-06-21 06:00] VITALS: BP 156/86
[2019-06-21] MEDS: LR 1,000 ML IV SCH ×3 (06:18→23:30)
[2019-06-21 06:59] LABS: BASO # 0.1 10^3/uL (0.0-0.2); BASO % 0.4 % (0.0-1.0); EOS # 0.3 10^3/uL (0.0-0.5); EOS % 1.9 % (0.0-3.0); HEMATOCRIT 42.7 % (42.0-52.0); HEMOGLOBIN 14.2 g/dl (13.5-17.5); LYMPH # 2.2 10^3/uL (1.5-5.0); LYMPH % 15.7 % (24.0-44.0); MEAN CORPUSCULAR HGB CONC 33.3 g/dl (32.0-36.5); MEAN CORPUSCULAR VOLUME 93.2 fl (80.0-96.0); MONO # 0.6 10^3/uL (0.0-0.8); MONO % 4.3 % (0.0-5.0); NEUTROPHILS # 10.8 10^3/uL (1.5-8.5); PLATELET COUNT, AUTOMATED 334 10^3/uL (150-450); RED BLOOD COUNT 4.58 10^6/uL (4.30-6.10)
[2019-06-21 07:33] LABS: ALBUMIN 2.7 GM/DL (3.2-5.2); ALT/SGPT 164 U/L (12-78); BILIRUBIN,TOTAL 0.7 MG/DL (0.2-1.0); BLOOD UREA NITROGEN 5 MG/DL (7-18); CALCIUM LEVEL 8.6 MG/DL (8.8-10.2); CARBON DIOXIDE LEVEL 28 MEQ/L (21-32); CHLORIDE LEVEL 109 MEQ/L (98-107); CREATININE FOR GFR 0.98 MG/DL (0.70-1.30); GLOMERULAR FILTRATION RATE > 60.0 (>49); GLUCOSE, FASTING 167 MG/DL (70-100); LIPASE 1666 U/L (73-393); POTASSIUM SERUM 3.5 MEQ/L (3.5-5.1); SODIUM LEVEL 143 MEQ/L (136-145); TOTAL PROTEIN 6.5 GM/DL (6.4-8.2)
[2019-06-21] MEDS: GABAPENTIN 300 MG CAP PO SCH ×2 (07:56→20:06)
[2019-06-21] MEDS: CHLORTHALIDONE 12.5MG PER 1/2 TABLET PO SCH (07:56)
[2019-06-21] MEDS: ASPIRIN 325 MG TAB PO SCH (07:56)
[2019-06-21] MEDS: METOPROLOL SUCC (TopROL XL) 100MG *XL* TAB PO SCH (07:56)
[2019-06-21] MEDS: amLODIPine 5 MG TAB PO SCH ×2 (07:57→20:08)
[2019-06-21] MEDS: OMEPRAZOLE 20 MG CAP PO SCH (07:57)
[2019-06-21] MEDS: ENOXAPARIN 40 MG/0.4 ML SYRINGE (J1650) SC SCH (07:57)
--- NOTE | 2019-06-21 10:49 | IPNPDOC ---
Subjective Date Seen The patient was seen on 06/21/19. Subjective Chief Complaint/HPI Patient complaining of pain in his left wrist. No history of injury or trauma. He refused any radiological workup and is requesting his Indocin General: Denies: ROS Unobtainable, Chills, Night Sweats, Fatigue, Malaise, Norm al Appetite, Other Symptoms Constitutional: Denies: Chills, Fever, Malaise, Night Sweats, Weakness, Fatigue, Weight Loss, Lethargy, Other Pulmonary: Denies: Dyspnea, Cough, Pleuritic Chest Pain, Other Symptoms Cardiovascular: Denies: Chest Pain, Palpitations, Orthopnea, Paroxysmal Noc. Dyspnea, Edema, Lt Headedness, Other Symptoms Gastrointestinal: Denies: Nausea, Vomiting, Abdominal Pain, Diarrhea, Constipat ion, Melena, Hematochezia, Other Symptoms Musculoskeletal: Reports: Other Symptoms Neurological: Denies: Weakness, Numbness, Incoordination, Change in speech, Confusion, Seizures, Other Symptoms Objective Physical Examination Eye Exam: Negative: Sclera icteric Chest Exam: Positive: Clear to auscultation, Normal air movement Heart Exam: Positive: Rate Normal, Regular Rhythm, Normal S1, Normal S2; Negative: Murmurs, Rubs Telemetry: Positive: No significant arrhythmia Abdomen Exam: Positive: Soft, Tenderness (Right upper and epigastric pain, no rebound, no involuntary guarding), Other (obese) Extremity Exam: Positive: Other (. Mild tenderness on flexion and extension of the left wrist but no increased local temperature of swelling) Skin Exam: Positive: Nl turgor and temperature; Negative: Breakdown, Lesion Neuro Exam: Positive: Normal Speech, Strength at 5/5 X4 ext, Cranial Nerves 3- 12 NL Assessment /Plan Problems (1) Acute cholecystitis Status: Acute Problem Text: Acute pancreatitis, most likely secondary to duodenal diverticulum. There is no evidence of gallstones but there was some sludge on a CAT scan Patient is currently on Zosyn IV fluids started at [facility] lactate and 150 mL per hour ERCP was canceled yesterday Maia is scheduled for laparoscopic cholecystectomy on Saturday His liver enzymes have significantly coming down, AST 114, AST 270, ALP 491, lipase 3860 (2) Acute pancreatitis Status: Acute Problem Text: Acute pancreatitis, most likely secondary to obstructive effects of diverticulum as well as possible bile duct sludge Continue IV fluid Ringers lactate 150 mL per hour Patient on clear liquid diet ERCP was canceled Further, as per GI (3) HTN (hypertension) Status: Chronic Problem Text: Continue home meds (4) Gout Status: Acute Problem Text: Patient does have a history of gout and he takes Indocin 50 mg by mouth twice a day when necessary Left wrist pain without trauma could be a flareup of gout even though he is refusing any radiological testing done. Will change Indocin to 50 mg by mouth twice a day as scheduled and will monitor clinically Plan/VTE VTE Prophylaxis Ordered?: Yes VS, I&O, 24H, Fishbone Vital Signs/I&O Vital Signs Date Time Temp Pulse Resp B/P (MAP) Pulse Ox O2 Delivery O2 Flow Rate FiO2 06/21/19 07:57 65 156/86 06/21/19 06:00 98.9 18 96 Room Air I&O- Last 24 Hours up to 6 AM 06/21/19 06:00 Intake Total 2740 ml Output Total 4000 ml Balance -1260 ml Laboratory Data 24H LABS Laboratory Tests 2 06/21/19 06:40: Immature Granulocyte % (Auto) 0.7, Neutrophils (%) (Auto) 77.0H, Lymphocytes (%) (Auto) 15.7L, Monocytes (%) (Auto) 4.3, Eosinophils (%) (Auto) 1.9, Basophils (% ) (Auto) 0.4, Neutrophils # (Auto) 10.8H, Lymphocytes # (Auto) 2.2, Monocytes # (Auto) 0.6, Eosinophils # (Auto) 0.3, Basophils # (Auto) 0.1, Nucleated Red Blood Cells % (auto) 0.0, Anion Gap 6L, Glomerular Filtration Rate > 60.0, Calcium Level 8.6L, Total Bilirubin 0.7, Aspartate Amino Transf (AST/SGOT) 38H, Alanine Aminotransferase (ALT/SGPT) 164H, Alkaline Phosphatase 339H, Total Protein 6.5, Albumin 2.7L, Albumin/Globulin Ratio 0.71L, Lipase 1666H CBC/BMP Laboratory Tests 06/21/19 06:40 Microbiology Microbiology 06/18/19 Blood Culture - Preliminary, Resulted No Growth after 48 hours. All Specime... 06/18/19 Blood Culture - Preliminary, Resulted No Growth after 48 hours. All Specime... RALPH BENNETT MD 26, 2020 10:49
[2019-06-21] MEDS: INDOMETHACIN 25 MG CAP PO SCH ×2 (12:14→20:07)
[2019-06-21 15:10] VITALS: BP 159/83
--- NOTE | 2019-06-21 15:28 | IPN ---
DATE: 06/21/2019 Patient overall seems to continue to make some clinical improvement. He feels better every day. However, his lipase, although it is improving, is slow to improve as well as his liver function tests (LFTs) are slowly improving, but are taking their time to resolution. His white count is still elevated, suggesting that his pancreatitis was more severe than initially appreciated on his initial study. Otherwise, on his physical exam, his abdomen is soft, mildly distended, but really not tender. He otherwise has no other significant abdominal findings. IMPRESSION AND PLAN: Patient has improvement/resolving gallstone pancreatitis. At this point, my recommendation is that he continue to be nothing by mouth for now and see how he does over the next 24 hours. If he is doing well, Dr. Hickey has planned for a laparoscopic cholecystectomy tomorrow and I feel that, given his relatively soft abdomen, this may be quite amenable to laparoscopic cholecystectomy. However, if he has any progression of pain or discomfort or his white count increases or liver function tests, amylase, lipase increase, he may need a repeat CT scan prior to proceeding with laparoscopic cholecystectomy.
[2019-06-21 20:06] VITALS: BP 160/82
[2019-06-21] MEDS: EZETIMIBE 10 MG TAB (ZETIA) PO SCH (20:08)
[2019-06-21] MEDS: ROSUVASTATIN 10 MG TAB (CRESTOR) PO SCH (20:08)
[2019-06-21] MEDS: LOSARTAN 50 MG TAB PO SCH (20:08)
[2019-06-21 22:00] VITALS: BP 161/78
[2019-06-22] MEDS: PIPERACILLIN/TAZOBACTAM SOD 3.375 GM in D5W MINI-BAG PLUS 50 ML IV SCH ×4 (02:39→22:05)
[2019-06-22] MEDS: ACETAMINOPHEN TAB 650MG DOSE (2X325MG) PO PRN (02:48)
[2019-06-22] MEDS: LR 1,000 ML IV SCH ×4 (03:25→22:09)
[2019-06-22 06:00] VITALS: BP 157/78
[2019-06-22] MEDS: CHLORTHALIDONE 12.5MG PER 1/2 TABLET PO SCH (08:34)
[2019-06-22] MEDS: amLODIPine 5 MG TAB PO SCH ×2 (08:34→22:09)
[2019-06-22] MEDS: ENOXAPARIN 40 MG/0.4 ML SYRINGE (J1650) SC SCH (08:34)
[2019-06-22] MEDS: ASPIRIN 325 MG TAB PO SCH (08:34)
[2019-06-22] MEDS: OMEPRAZOLE 20 MG CAP PO SCH (08:35)
[2019-06-22] MEDS: GABAPENTIN 300 MG CAP PO SCH ×2 (08:35→22:08)
[2019-06-22] MEDS: METOPROLOL SUCC (TopROL XL) 100MG *XL* TAB PO SCH (08:35)
[2019-06-22] MEDS: INDOMETHACIN 25 MG CAP PO SCH ×2 (08:36→22:08)
--- NOTE | 2019-06-22 10:19 | IPNPDOC ---
Subjective Date Seen The patient was seen on 06/22/19. Subjective Chief Complaint/HPI Patient is scheduled for a laparoscopic cholecystectomy today General: Denies: ROS Unobtainable, Chills, Night Sweats, Fatigue, Malaise, Normal Appetite, Other Symptoms Constitutional: Denies: Chills, Fever, Malaise, Night Sweats, Weakness, Fatigue, Weight Loss, Lethargy, Other Eyes: Denies: Pain, Vision change, Conjunctivae inflammation, Eyelid inflammation, Redness, Other Pulmonary: Denies: Dyspnea, Cough, Pleuritic Chest Pain, Other Symptoms Cardiovascular: Denies: Chest Pain, Palpitations, Orthopnea, Paroxysmal Noc. Dyspnea, Edema, Lt Headedness, Other Symptoms Gastrointestinal: Denies: Nausea, Vomiting, Abdominal Pain, Diarrhea, Constipation, Melena, Hematochezia, Other Symptoms Musculoskeletal: Denies: Neck Pain, Back Pain, Shoulder Pain, Arm Pain, Hand Pain, Leg Pain, Foot Pain, Joint Pain, Muscle Pain, Spasms, Other Symptoms Neurological: Denies: Weakness, Numbness, Incoordination, Change in speech, Confusion, Seizures, Other Symptoms Objective Physical Examination Neck Exam: Positive: Supple Chest Exam: Positive: Clear to auscultation, Normal air movement Heart Exam: Positive: Rate Normal, Regular Rhythm, Normal S1, Normal S2 Telemetry: Positive: No significant arrhythmia Abdomen Exam: Positive: Soft, Tenderness (Right upper and epigastric pain, no rebound, no involuntary guarding), Other (obese) Extremity Exam: Positive: Other (. Mild tenderness on flexion and extension of the left wrist but no increased local temperature of swelling) Skin Exam: Positive: Nl turgor and temperature Neuro Exam: Positive: Normal Speech, Strength at 5/5 X4 ext, Cranial Nerves 3- 12 NL Assessment /Plan Problems (1) Acute cholecystitis Status: Acute Problem Text: Acute pancreatitis, most likely secondary to duodenal diverticulum. There is no evidence of gallstones but there was some sludge on a CAT scan Patient is currently on Zosyn IV fluids started at [facility] lactate and 150 mL per hour ERCP was canceled yesterday Patient is a scheduled follow-up: The today. 2 PM He is nothing by mouth except meds Further postop instruction as per surgery (2) Acute pancreatitis Status: Acute Problem Text: Acute pancreatitis, most likely secondary to obstructive effects of diverticulum as well as possible bile duct sludge Continue IV fluid Ringers lactate 150 mL per hour Donn is nothing by mouth for surgery His repeat lipase level is 16 a 66 (3) HTN (hypertension) Status: Chronic Problem Text: Continue home meds (4) Gout Status: Acute Problem Text: Patient does have a history of gout and he takes Indocin 50 mg by mouth twice a day when necessary Left wrist pain without trauma could be a flareup of gout even though he is refusing any radiological testing done. Will change Indocin to 50 mg by mouth twice a day as scheduled and will monitor clinically Plan/VTE VTE Prophylaxis Ordered?: Yes VS, I&O, 24H, Fishbone Vital Signs/I&O Vital Signs Date Time Temp Pulse Resp B/P (MAP) Pulse Ox O2 Delivery O2 Flow Rate FiO2 06/22/19 08:35 70 157/78 06/22/19 06:00 98.8 18 97 Room Air I&O- Last 24 Hours up to 6 AM 06/22/19 06:00 Intake Total 3500 ml Output Total 3650 ml Balance -150 ml Laboratory Data Microbiology Microbiology 06/18/19 Blood Culture - Preliminary, Resulted No Growth after 72 hours. All specime... 06/18/19 Blood Culture - Preliminary, Resulted No Growth after 72 hours. All specime... RALPH BENNETT MD Jun 22, 2019 10:19
[2019-06-22 14:00] VITALS: BP 159/80
[2019-06-22] MEDS ORDERED: LIDOCAINE 1% SDV INJ 30 ML VIAL As Ordered ONE (14:03)
[2019-06-22] MEDS ORDERED: CONRAY-60 60% 50ML VIAL (Q9961) As Ordered ONE (14:03)
[2019-06-22] MEDS ORDERED: BUPIVACAINE HCL 0.25% 30 ML VIAL As Ordered ONE (14:03)
[2019-06-22] MEDS ORDERED: LIDOCAINE 2% INJ 100 MG/5 ML SDV (FOR ANES.) As Ordered ONE (17:24)
[2019-06-22] MEDS ORDERED: KETOROLAC 60 MG/2 ML VIAL (J1885) As Ordered ONE (17:24)
[2019-06-22] MEDS ORDERED: propofoL 200 MG/20 ML VIAL As Ordered ONE (17:24)
[2019-06-22] MEDS ORDERED: ROCURONIUM BROMIDE 50 MG/5 ML VIAL As Ordered ONE ×2 (17:24→18:11)
[2019-06-22] MEDS ORDERED: ONDANSETRON 4MG/2ML VIAL (J2405) As Ordered ONE (17:25)
[2019-06-22] MEDS ORDERED: dexameTHASONE 4 MG/ML 1ML VIAL (J1100) As Ordered ONE (17:25)
[2019-06-22] MEDS ORDERED: fentaNYL 250 MCG/5 ML INJECTION (J3010) As Ordered ONE (17:28)
[2019-06-22] MEDS ORDERED: MIDAZOLAM INJ 2 MG/2 ML VIAL (J2250) As Ordered ONE (17:29)
--- NOTE | 2019-06-22 17:36 | IPNPDOC ---
Text Note Date of Service The patient was seen on 06/22/19. NOTE I had admitted the patient last week for acute cholecystitis with suspicion for possible transient passage of stones to his CBD. He had elevations of his LFTs along with the abdominal pain. His pain resolved and he was discharged home in anticipation of an interval cholecystectomy. He promptly returned to the hospital after less than 48 hrs with recurrence of his abdominal pain and now found to have pancreatitis along with recurrence of his LFT elevations, consistent with another stone or the same cholelith making its way through the biliary tract. He also has a large diverticulum in the duodenum. His pain promptly resolved along with the LFT elevation. Through the weekend, he did not have any abdominal discomfort. He still has some mild leukocytosis but otherwise hemodynamically stable throughout his course. On exam, he looks very comfortable. No signs of jaundice. His heart rate and rhythm is regular. His breath sounds are clear to ausculation. He has a rounded abdomen, but nondistended. Nontender on palpation throughout the abdomen. Impression: cholecystitis acute biliary pancreatitis possible transient passage of CBD stone with elevated LFTs, improved. Patient is for laparoscopic cholecystectomy today. If possible will perform cholangiogram to clarify for presence of residual stones/choleliths or signs of obstruction related to the diverticulum. VS,Fishbone, I+O VS, Fishbone, I+O Vital Signs Date Time Temp Pulse Resp B/P (MAP) Pulse Ox O2 Delivery O2 Flow Rate FiO2 06/22/19 14:00 98.8 97 18 159/80 (106) 97 Room Air I&O- Last 24 Hours up to 6 AM 06/22/19 06:00 Intake Total 3500 ml Output Total 3650 ml Balance -150 ml PATTY KENNEY MD Jun 22, 2019 17:35
[2019-06-22] MEDS ORDERED: ACETAMINOPHEN 1000MG 100ML IV BTL (OFIRMEV) (J0131 PER 10MG) As Ordered ONE (17:59)
[2019-06-22] MEDS ORDERED: BUPIVACAINE HCL 0.25% 10 ML VIAL As Ordered ONE (18:04)
[2019-06-22] MEDS ORDERED: BUPIVACAINE LIPOSOME/PF 1.3% 20ML VIAL (13.3MG/ML)(EXPAREL)(C9290 PER1MG) As Ordered ONE (18:04)
[2019-06-22] MEDS ORDERED: ePHEDrine SULFATE 25 MG/5 ML(5MG/ML) SYRINGE As Ordered ONE (18:08)
[2019-06-22] MEDS ORDERED: SUGAMMADEX SODIUM 500 MG/5 ML VIAL (BRIDION) As Ordered ONE (18:11)
[2019-06-22] MEDS ORDERED: GLYCOPYRROLATE INJ 0.2 MG/ML 2 ML VIAL As Ordered ONE (18:19)
[2019-06-22] MEDS ORDERED: fentaNYL 100 MCG/2 ML INJECTION (J3010) As Ordered ONE (20:11)
[2019-06-22] MEDS ORDERED: HYDROMORPHONE HCL 0.5 MG/ 0.5 ML SYRINGE (J1170 PER 1) IV PRN (21:15)
[2019-06-22] MEDS ORDERED: LR 1,000 ML IV SCH (21:15)
[2019-06-22] MEDS ORDERED: oxyCODONE 5MG TAB PO PRN (21:15)
[2019-06-22] MEDS ORDERED: ONDANSETRON 4MG/2ML VIAL (J2405) IV PRN (21:15)
[2019-06-22] MEDS ORDERED: fentaNYL 100 MCG/2 ML INJECTION (J3010) IV PRN (21:15)
[2019-06-22 21:45] VITALS: BP 136/74
[2019-06-22] MEDS: LOSARTAN 50 MG TAB PO SCH (22:05)
[2019-06-22] MEDS: ROSUVASTATIN 10 MG TAB (CRESTOR) PO SCH (22:08)
[2019-06-22] MEDS: EZETIMIBE 10 MG TAB (ZETIA) PO SCH (22:09)
[2019-06-22 22:15] VITALS: BP 134/72
[2019-06-22 23:15] VITALS: BP 139/70
[2019-06-23 00:15] VITALS: BP 154/78
[2019-06-23 01:15] VITALS: BP 136/69
[2019-06-23] MEDS: PIPERACILLIN/TAZOBACTAM SOD 3.375 GM in D5W MINI-BAG PLUS 50 ML IV SCH ×2 (02:23→08:31)
[2019-06-23] MEDS: ACETAMINOPHEN TAB 650MG DOSE (2X325MG) PO PRN ×2 (05:56→17:10)
[2019-06-23 06:00] VITALS: BP 131/68
--- NOTE | 2019-06-23 07:58 | IPNPDOC ---
Text Note Date of Service The patient was seen on 06/23/19. NOTE Patient had lap cholecystectomy performed last night. Reports feeling better, not much abdominal discomfort. Denies nausea, vomiting, fevers or chills. VS postop stable Patient looks comfortable no jaundice, icteric sclerae lungs clear to auscultation regular heart rate and rhythm obese, soft, mildly distended. Lap port site dressings are clean, dry. HAIDER drain with only minimal amount of pinkish serosanguenous fluid. no noticeable extremity edema POD1 Laparoscopic Cholecystectomy on an acute over chronic cholecystitis doing well regular diet watch drain output and character hopefully d/c tomorrow (+/-)drain VS,Fishbone, I+O VS, Fishbone, I+O Vital Signs Date Time Temp Pulse Resp B/P (MAP) Pulse Ox O2 Delivery O2 Flow Rate FiO2 06/23/19 06:00 98.9 54 18 131/68 (89) 95 Nasal Cannula 2.0 I&O- Last 24 Hours up to 6 AM 06/23/19 06:00 Intake Total 4250 ml Output Total 2125 ml Balance 2125 ml PATTY KENNEY MD Jun 23, 2019 07:58
[2019-06-23] MEDS: ASPIRIN 325 MG TAB PO SCH (08:32)
[2019-06-23] MEDS: METOPROLOL SUCC (TopROL XL) 100MG *XL* TAB PO SCH (08:32)
[2019-06-23] MEDS: ENOXAPARIN 40 MG/0.4 ML SYRINGE (J1650) SC SCH (08:32)
[2019-06-23] MEDS: GABAPENTIN 300 MG CAP PO SCH ×2 (08:32→20:14)
[2019-06-23] MEDS: OMEPRAZOLE 20 MG CAP PO SCH (08:32)
[2019-06-23] MEDS: CHLORTHALIDONE 12.5MG PER 1/2 TABLET PO SCH (08:33)
[2019-06-23] MEDS: INDOMETHACIN 25 MG CAP PO SCH ×2 (08:33→20:13)
[2019-06-23] MEDS: amLODIPine 5 MG TAB PO SCH ×2 (08:33→20:15)
[2019-06-23 08:56] LABS: BASO % 0.2 % (0.0-1.0); EOS # 0.2 10^3/uL (0.0-0.5); EOS % 1.1 % (0.0-3.0); HEMATOCRIT 38.9 % (42.0-52.0); HEMOGLOBIN 12.8 g/dl (13.5-17.5); LYMPH # 1.5 10^3/uL (1.5-5.0); LYMPH % 10.4 % (24.0-44.0); MEAN CORPUSCULAR HEMOGLOBIN 30.8 pg (27.0-33.0); MEAN CORPUSCULAR HGB CONC 32.9 g/dl (32.0-36.5); MEAN CORPUSCULAR VOLUME 93.7 fl (80.0-96.0); MONO # 0.6 10^3/uL (0.0-0.8); MONO % 4.2 % (0.0-5.0); NEUTROPHILS % 83.3 % (36.0-66.0); PLATELET COUNT, AUTOMATED 353 10^3/uL (150-450); RED BLOOD COUNT 4.15 10^6/uL (4.30-6.10); WHITE BLOOD COUNT 14.5 10^3/uL (4.0-10.0)
[2019-06-23 09:22] LABS: ALBUMIN 2.6 GM/DL (3.2-5.2); ALT/SGPT 92 U/L (12-78); BILIRUBIN,TOTAL 0.8 MG/DL (0.2-1.0); BLOOD UREA NITROGEN 10 MG/DL (7-18); CALCIUM LEVEL 8.3 MG/DL (8.8-10.2); CARBON DIOXIDE LEVEL 29 MEQ/L (21-32); CHLORIDE LEVEL 107 MEQ/L (98-107); CREATININE FOR GFR 1.19 MG/DL (0.70-1.30); GLOMERULAR FILTRATION RATE > 60.0 (>49); GLUCOSE, FASTING 143 MG/DL (70-100); POTASSIUM SERUM 3.8 MEQ/L (3.5-5.1); SODIUM LEVEL 142 MEQ/L (136-145); TOTAL PROTEIN 5.8 GM/DL (6.4-8.2)
[2019-06-23 10:00] VITALS: BP 133/67
--- NOTE | 2019-06-23 11:06 | IPNPDOC ---
Subjective Date Seen The patient was seen on 06/23/19. Subjective Chief Complaint/HPI Patient and had a lap cholecystectomy done yesterday. He tolerated procedure very well. Drain in place. We will advance diet today General: Denies: ROS Unobtainable, Chills, Night Sweats, Fatigue, Malaise, Normal Appetite, Other Symptoms Constitutional: Denies: Chills, Fever, Malaise, Night Sweats, Weakness, Fatigue, Weight Loss, Lethargy, Other Pulmonary: Denies: Dyspnea, Cough, Pleuritic Chest Pain, Other Symptoms Cardiovascular: Denies: Chest Pain, Palpitations, Orthopnea, Paroxysmal Noc. Dyspnea, Edema, Lt Headedness, Other Symptoms Gastrointestinal: Denies: Nausea, Vomiting, Abdominal Pain, Diarrhea, Constipation, Melena, Hematochezia Genitourinary: Denies: Dysuria, Frequency, Incontinence, Hematuria, Retention, Other Symptoms Musculoskeletal: Denies: Neck Pain, Back Pain, Shoulder Pain, Arm Pain, Hand Pain, Leg Pain, Foot Pain, Joint Pain, Muscle Pain, Spasms, Other Symptoms Neurological: Denies: Weakness, Numbness, Incoordination, Change in speech, Confusion, Seizures, Other Symptoms Objective Physical Examination Neck Exam: Positive: Supple Chest Exam: Positive: Clear to auscultation, Normal air movement Heart Exam: Positive: Rate Normal, Regular Rhythm, Normal S1, Normal S2 Telemetry: Positive: No significant arrhythmia Abdomen Exam: Positive: Soft, Tenderness (Right upper and epigastric pain, no rebound, no involuntary guarding), Other (. Abdominal drain in place) Extremity Exam: Positive: Other (. Mild tenderness on flexion and extension of the left wrist but no increased local temperature of swelling) Skin Exam: Positive: Nl turgor and temperature Neuro Exam: Positive: Normal Speech, Strength at 5/5 X4 ext, Cranial Nerves 3- 12 NL Assessment /Plan Problems (1) Acute cholecystitis Status: Acute Problem Text: Status post cholecystectomy HAIDER drain in place without much drainage Will advance diet today Possible discharge home in a.m. once cleared by surgery (2) Acute pancreatitis Status: Acute Problem Text: Acute pancreatitis, most likely secondary to obstructive effects of diverticulum as well as possible bile duct sludge Patient is asymptomatic at the present time, status post lap cholecystectomy (3) HTN (hypertension) Status: Chronic Problem Text: Continue home meds (4) Gout Status: Acute Problem Text: Patient does have a history of gout and he takes Indocin 50 mg by mouth twice a day when necessary Left wrist pain without trauma could be a flareup of gout even though he is refusing any radiological testing done. Will change Indocin to 50 mg by mouth twice a day as scheduled and will monitor clinically Plan/VTE VTE Prophylaxis Ordered?: Yes VS, I&O, 24H, Fishbone Vital Signs/I&O Vital Signs Date Time Temp Pulse Resp B/P (MAP) Pulse Ox O2 Delivery O2 Flow Rate FiO2 06/23/19 10:00 99.6 64 12 133/67 (89) 95 Room Air 06/23/19 06:00 2.0 I&O- Last 24 Hours up to 6 AM 06/23/19 05:59 Intake Total 4250 ml Output Total 2125 ml Balance 2125 ml Laboratory Data 24H LABS Laboratory Tests 2 06/23/19 08:39: Immature Granulocyte % (Auto) 0.8, Neutrophils (%) (Auto) 83.3H, Lymphocytes (%) (Auto) 10.4L, Monocytes (%) (Auto) 4.2, Eosinophils (%) (Auto) 1.1, Basophils (%) (Auto) 0.2, Neutrophils # (Auto) 12.0H, Lymphocytes # (Auto) 1.5, Monocytes # (Auto) 0.6, Eosinophils # (Auto) 0.2, Basophils # (Auto) 0.0, Nucleated Red Blood Cells % (auto) 0.0, Anion Gap 6L, Glomerular Filtration Rate > 60.0, Calcium Level 8.3L, Total Bilirubin 0.8, Aspartate Amino Transf (AST/SGOT) 40H, Alanine Aminotransferase (ALT/SGPT) 92H, Alkaline Phosphatase 235H, Total Protein 5.8L, Albumin 2.6L, Albumin/Globulin Ratio 0.81L CBC/BMP Laboratory Tests 06/23/19 08:39 Microbiology Microbiology 06/18/19 Blood Culture - Preliminary, Resulted No Growth after 72 hours. All specime... 06/18/19 Blood Culture - Preliminary, Resulted No Growth after 72 hours. All specime... RALPH BENNETT MD Jun 23, 2019 11:06
[2019-06-23 14:35] VITALS: BP 134/61
[2019-06-23] MEDS: ROSUVASTATIN 10 MG TAB (CRESTOR) PO SCH (20:13)
[2019-06-23] MEDS: LOSARTAN 50 MG TAB PO SCH (20:14)
[2019-06-23] MEDS: EZETIMIBE 10 MG TAB (ZETIA) PO SCH (20:15)
[2019-06-23 22:00] VITALS: BP 115/69
--- NOTE | 2019-06-23 22:45 | IPNPDOC ---
Date Seen The patient was seen on 06/23/19. Progress Note Interval h/o : Patient had Cholecystectomy with abdominal drain placement. He started regular diet today morning and felt some discomfort but not to the extent he had before. complaining of constipation. Exam; Vitals; Afebrile. General: AO x 3, not in acute distress. Abdomen: Laparoscopic surgery wounds noted with right upper quadrant abdominal drain. Non tender, no rigidity or guarding. normal bowel sounds. Labs: reviewed. Impression: -- Abnormal Liver panel with biliary pancreatitis and duodenal diverticulum Recommendations: -- Advance diet as tolerated. -- Monitor clinical status. -- Elective evaluation for EUS and/or ERCP -- PRN miralax to avoid constipation. -- upon discharge follow up in GI clinic in 2-3 weeks. Plan of care discussed with patient and primary team. Patient verbalized understanding and agreed with plan. VS, I&O, 24H, Fishbone Vital Signs/I&O Vital Signs Date Time Temp Pulse Resp B/P (MAP) Pulse Ox O2 Delivery O2 Flow Rate FiO2 06/23/19 22:00 99.8 66 18 115/69 (84) 95 Room Air 06/23/19 08:00 0.0 I&O- Last 24 Hours up to 6 AM 06/23/19 06:00 Intake Total 4250 ml Output Total 2125 ml Balance 2125 ml Laboratory Data 24H LABS Laboratory Tests 2 06/23/19 08:39: Immature Granulocyte % (Auto) 0.8, Neutrophils (%) (Auto) 83.3H, Lymphocytes (%) (Auto) 10.4L, Monocytes (%) (Auto) 4.2, Eosinophils (%) (Auto) 1.1, Basophils (%) (Auto) 0.2, Neutrophils # (Auto) 12.0H, Lymphocytes # (Auto) 1.5, Monocytes # (Auto) 0.6, Eosinophils # (Auto) 0.2, Basophils # (Auto) 0.0, Nucleated Red Blood Cells % (auto) 0.0, Anion Gap 6L, Glomerular Filtration Rate > 60.0, Calcium Level 8.3L, Total Bilirubin 0.8, Aspartate Amino Transf (AST/SGOT) 40H, Alanine Aminotransferase (ALT/SGPT) 92H, Alkaline Phosphatase 235H, Total Protein 5.8L, Albumin 2.6L, Albumin/Globulin Ratio 0.81L CBC/BMP Laboratory Tests 06/23/19 08:39 Microbiology Microbiology 06/18/19 Blood Culture - Final, Complete NO GROWTH AFTER 5 DAYS 06/18/19 Blood Culture - Final, Complete NO GROWTH AFTER 5 DAYS ORTEGA NGUYEN MD Jun 23, 2019 22:45
[2019-06-24 06:00] VITALS: BP 141/70
[2019-06-24 07:12] LABS: BASO % 0.2 % (0.0-1.0); EOS # 0.2 10^3/uL (0.0-0.5); EOS % 1.5 % (0.0-3.0); HEMATOCRIT 38.4 % (42.0-52.0); HEMOGLOBIN 12.7 g/dl (13.5-17.5); LYMPH # 1.4 10^3/uL (1.5-5.0); LYMPH % 8.7 % (24.0-44.0); MEAN CORPUSCULAR HEMOGLOBIN 30.6 pg (27.0-33.0); MEAN CORPUSCULAR HGB CONC 33.1 g/dl (32.0-36.5); MEAN CORPUSCULAR VOLUME 92.5 fl (80.0-96.0); MONO # 0.8 10^3/uL (0.0-0.8); MONO % 5.2 % (0.0-5.0); NEUTROPHILS % 83.7 % (36.0-66.0); PLATELET COUNT, AUTOMATED 350 10^3/uL (150-450); RED BLOOD COUNT 4.15 10^6/uL (4.30-6.10); WHITE BLOOD COUNT 15.5 10^3/uL (4.0-10.0)
[2019-06-24 07:40] LABS: ALBUMIN 2.5 GM/DL (3.2-5.2); ALT/SGPT 74 U/L (12-78); AMYLASE 99 U/L (25-115); BILIRUBIN,TOTAL 0.8 MG/DL (0.2-1.0); BLOOD UREA NITROGEN 9 MG/DL (7-18); CALCIUM LEVEL 8.5 MG/DL (8.8-10.2); CARBON DIOXIDE LEVEL 30 MEQ/L (21-32); CHLORIDE LEVEL 105 MEQ/L (98-107); CREATININE FOR GFR 1.07 MG/DL (0.70-1.30); GLOMERULAR FILTRATION RATE > 60.0 (>49); GLUCOSE, FASTING 194 MG/DL (70-100); LIPASE 590 U/L (73-393); POTASSIUM SERUM 3.5 MEQ/L (3.5-5.1); SODIUM LEVEL 140 MEQ/L (136-145); TOTAL PROTEIN 5.9 GM/DL (6.4-8.2)
[2019-06-24] MEDS: ACETAMINOPHEN TAB 650MG DOSE (2X325MG) PO PRN (07:49)
[2019-06-24] MEDS ORDERED: POTASSIUM CHLORIDE 10 MEQ SR TABLET PO ONE (09:00)
[2019-06-24] MEDS ORDERED: MOM 30ML SUSPENSION UDC PO PRN (09:00)
[2019-06-24] MEDS: ENOXAPARIN 40 MG/0.4 ML SYRINGE (J1650) SC SCH (09:02)
[2019-06-24] MEDS: GABAPENTIN 300 MG CAP PO SCH (09:02)
[2019-06-24] MEDS: OMEPRAZOLE 20 MG CAP PO SCH (09:03)
[2019-06-24] MEDS: CHLORTHALIDONE 12.5MG PER 1/2 TABLET PO SCH (09:04)
[2019-06-24] MEDS: ASPIRIN 325 MG TAB PO SCH (09:04)
[2019-06-24 09:05] VITALS: BP 141/70
[2019-06-24] MEDS: amLODIPine 5 MG TAB PO SCH (09:05)
[2019-06-24] MEDS: METOPROLOL SUCC (TopROL XL) 100MG *XL* TAB PO SCH (09:05)
[2019-06-24] MEDS: INDOMETHACIN 25 MG CAP PO SCH (09:07)
--- NOTE | 2019-06-24 14:15 | ROOPDOC ---
[facility] Report Of Operation Report of Operation DATE OF PROCEDURE: 06/22/19 PREPROCEDURE DIAGNOSES: Acute Cholecystitis. POSTPROCEDURE DIAGNOSES: Acute over chronic cholecystitis. PROCEDURE: Laparoscopic Cholecystectomy. SURGEON: Patty Hickey MD HEALTH EDUCATION SPECIALIST: ANESTHESIA: General Anesthesia. ESTIMATED BLOOD LOSS: Approximately 100 mL. COMPLICATIONS: none. SPECIMEN: Gallbladder DRAIN: 19 Jc Drain to gallbladder fossa. PROCEDURE NOTE: Markedly inflamed gallbladder, chronically thickened and adhered to the colon and duodenum, surrounding fibrinous deposits consistent with persistent inflammation related to his gallbladder. Enlarged liver with overall smooth and nonnodular. DESCRIPTION OF PROCEDURE: Patient is receiving Zosyn 3.375 gm IV for persistent acute cholecystitis. Hhe was brought to the operating room, laid supine on the table, compression boots placed for DVT prophylaxis. General endotracheal anesthesia started. His abdomen then prepped and draped in usual sterile fashion.We paused for a surgical timeout using both pre-incision safety checklist to verify correct patient, procedure site and additional clinical information prior to beginning the procedure He had a prior midline incision from his low anterior resection. Thus I decided to enter the abdomen through the left upper quadrant area.. A Veress needle was inserted with a controlled fashion. CO2 insufflation started to pressure 15 mmHg. Using the same incision a 5 mm Visiport was placed under direc t vision laparoscope. The area underneath the insertion site was inspected and no injury found. He was placed on a slight right lateral decubitus position. A second port was placed on the left anterior axillary line at about the level of the umbilicus. The omental adhesions to the midline was taken down with laparoscopic scissors connected to a monopolar cautery freeing up to the level of the umbilicus. A 5 mm port was placed at the level just above the umbilicus. We then switched cameras to the midline. He was placed on a steep Trendelenburg, slight left lateral decubitus to visualize the right upper quadrant area. The gallbladder fossa is covered by omentum. Additional trochars were placed along the right subcostal area in its usual position. A 10 mm port was placed at the epigastric, 5 mm port at the right midclavicular and 5 mm port at the right anterior axillary line. I then worked on peeling off the omental adhesion off from the liver and gallbladder fundus with both sharp and blunt dissection. Gallbladder is tensely distended and the wall was quite thick. This was decompressed with an aspirating needle yielding a black turbid, thick bile. Once we have adequate purchase on the fundus this was lifted up revealing a partially necrotic wall but no gross perforation. He continued working peeling off the omentum downwards going towards the lower body of the gallbladder. I partially did a dome down approach to free up the gallbladder and allow for better retraction. Starting from that dissection I did mostly a subserosal dissection as the peritoneum and serosa of the gallbladder wall was quite adhered intimately to one another maintaining an intact gallbladder. As I approach the hepatocystic triangle and made sure multiple Monse sulcus which was visible. The infundibulum of the gallbladder was retracted laterally. I approach and dissected at the hepatocystic triangle mostly with blunt dissection using a Maryland instrument and laparoscopic Kitner. Operative findings: I approach the the cystic artery high up on its course on the lower body of the medial side of the gallbladder and dissected downwards toward the hepatocystic triangle. I was able to circumferentially dissect around this structure and also approach the posterior wall at the cystic plate from this area with again blunt dissection with minimal bleeding but definitely some minor oozing from the wall of the gallbladder. I further developed medially and laterally from the gallbladder neck and infundibulum be able to approach the cystic duct. Cystic plate below this is quite thickened. I was initially planning to perform a cholangiogram. I did not feel it was safe to proceed further distally to the cystic duct given the degree of chronic inflammation at the area. Thus I just persisted and developing circumferentially around the cystic duct. I further developed at the posterior cystic plate up high in the gallbladder without lower down. This enabled me to catch a glimpse of the critical view of safety. I was fairly certain that identified the cystic artery and cystic duct along its course but I did not want to go down further along the cystic plate to avoid bile duct injury. The cystic artery was then divided in between 4 hemoclips. I placed 4 hemoclips at the cystic duct and partially transected the cystic duct and placed an additional 2 hemoclips at the cystic duct side to control the cystic duct. The gallbladder was then completely dis sected off the wall of the liver. This was retrieved through the epigastric port site which had to enlarge. I then left a 19 Jc drain at the gallbladder fossa, and off through the anterior axillary 5 mm port sites operative monitoring. After re-insufflation and inspected the clips and noted this to be in place. No further bleeding noted. No bile leakage noted. The abdomen was deflated all ports were removed. The epigastric fascial defect repaired with 0 Vicryl in a mattress fashion. Rest of the skin incisions closed with 4-0 Monocryl in subcuticular fashion. Steri-Strips and gauze dressings were placed, the wound. Patient was informed they awakened, extubated and brought to recovery room stable PATTY HICKEY MD Jun 24, 2019 14:15
--- NOTE | 2019-06-24 14:20 | IPNPDOC ---
Text Note Date of Service The patient was seen on 06/24/19. NOTE Patient was reporting some discomfort up to 5/10 after eating solid foods yes terday. Feels about 2/10 today discomfort but has not tried much to eat. He denies any nausea. He reports the right side of the abdomen is where he hurts. Otherwise he has been hemodynamically stable, afebrile. His vitals were reviewed. Follow straight are in the 60s. He has been afebrile postoperatively. Hemodynamically stable. Saturations are 96% at room air I/O His drain only put out 20 mL's of serosanguineous fluid yesterday and another 20 mL's today. He is voiding spontaneously. Urine output being recorded more than 2 L yesterday and so far 1 L today. No bowel movements recorded. Examination he looks comfortable. Skin is warm and dry looks adequately hydrated. No scleral icterus Lungs are clear to auscultation bilaterally His regular heart rate and rhythm Abdomen is obese, rounded but does not look to be overly distended. He has multiple port sites which are covered with clean and dry gauze. He is right side Artie-Bhandari drain with a small amount of light pink serosanguineous fluid. Some staining of the overlying dressing around the drain site. Minimal tenderness on deep palpation at the right upper quadrant area without rebound or guarding No significant extremity edema His labs have been reviewed. Pertinent results include WBC of 15.5. LFTs are normalizing. His amylase is normal. His lipase is down to 590 Impression and plans Acute over chronic cholecystitis. Postop day 2 laparoscopic cholecystectomy Acute biliary pancreatitis resolving, no necrosis. Surgical standpoint he is doing well. No signs of injury or bile leakage and has only minimal drainage coming out of his drain. We can discontinue the drain. He can continue on regular food depending on how he tolerates this. They feel that the pancreatitis probably has more effect on the pain then him being postop. I told him frequent small meals might do better for him for next couple weeks. From surgical standpoint if he is doing well and is able to tolerate some oral diet he could go home. He does not need to be on antibiotics from a standpoint. He will need some pain medications for postop pain control. He can follow-up with me in the clinic. He has a prior scheduled follow-up with me in 1 week. Naa LOVING I+O VS, Fishbone, I+O Laboratory Tests 06/24/19 06:41 Vital Signs Date Time Temp Pulse Resp B/P (MAP) Pulse Ox O2 Delivery O2 Flow Rate FiO2 06/24/19 09:05 63 141/70 06/24/19 06:00 98.9 17 96 Room Air 06/23/19 08:00 0.0 I&O- Last 24 Hours up to 6 AM 06/24/19 06:00 Intake Total 3600 ml Output Total 1800 ml Balance 1800 ml PATTY KENNEY MD Jun 24, 2019 14:20
--- NOTE | 2019-06-24 15:54 | DS.PDOC ---
Discharge Summary General Date of Admission Jun 18, 2019 at 20:53 Date of Discharge 06/24/19 Attending Physician: VIOLETA CASTLE MD Discharge Summary PROCEDURES PERFORMED DURING STAY: None. ADMITTING DIAGNOSES: 1. Acute cholecystitis, acute pancreatitis. DISCHARGE DIAGNOSES: 1. Acute cholecystitis, acute pancreatitis. COMPLICATIONS/CHIEF COMPLAINT: Acute Cholecystitis,Cholangitis. HISTORY OF PRESENT ILLNESS: 63-year-old male was admitted for acute cholecystitis with gallstone pancreatitis. Patient underwent laparoscopic cholecystectomy with HAIDER drain placement, has been tolerating his diet since, pain is well controlled, cleared for discharge by general surgery with outp atient follow-up. Patient was also evaluated by gastroenterology for acute pancreatitis, recommended outpatient follow-up for endoscopic ultrasound and possible ERCP. Patient is hemodynamically stable for discharge and outpatient follow-up at this time. Patient is advised to follow with Gen. surgery, gastroenterology and PCP within 1-2 weeks. Patient understands and agrees with discharge plan. HOSPITAL COURSE: As above. DISCHARGE MEDICATIONS: Please see below. ALLERGIES: Please see below. PHYSICAL EXAMINATION: VITAL SIGNS: Please see below. GENERAL: No distress HEENT: Normocephalic, atraumatic, moist mucous membranes NECK: Supple CARDIOVASCULAR EXAMINATION: S1, S2, no murmurs RESPIRATORY EXAMINATION: Clear to auscultation, no wheezing ABDOMINAL EXAMINATION: Soft, mildly distended, mild tenderness to palpation, HAIDER drain in place, positive bowel sounds EXTREMITIES: Range of motion intact SKIN: No rash NEUROLOGICAL EXAMINATION: Alert and oriented 3, no focal deficits PSYCHIATRIC EXAMINATION: Calm and cooperative LABORATORY DATA: Please see below. PROGNOSIS: Fair ACTIVITY: As tolerated. DIET: Regular DISCHARGE PLAN: Follow with gastroenterology, general surgery and PCP DISPOSITION: Home. DISCHARGE INSTRUCTIONS: 1. As above. DISCHARGE CONDITION: Stable. TIME SPENT ON DISCHARGE: Greater than 34 minutes. Vital Signs/I&Os Vital Signs Date Time Temp Pulse Resp B/P (MAP) Pulse Ox O2 Delivery O2 Flow Rate FiO2 06/24/19 09:05 63 141/70 06/24/19 06:00 98.9 17 96 Room Air 06/23/19 08:00 0.0 I&O- Last 24 Hours up to 6 AM 06/24/19 06:00 Intake Total 3600 ml Output Total 1800 ml Balance 1800 ml Laboratory Data Labs 24H Laboratory Tests 2 06/24/19 06:41: Immature Granulocyte % (Auto) 0.7, Neutrophils (%) (Auto) 83.7H, Lymphocytes (%) (Auto) 8.7L, Monocytes (%) (Auto) 5.2H, Eosinophils (%) (Auto) 1.5, Basophils (%) (Auto) 0.2, Neutrophils # (Auto) 13.0H, Lymphocytes # (Auto) 1.4L, Monocytes # (Auto) 0.8, Eosinophils # (Auto) 0.2, Basophils # (Auto) 0.0, Nucleated Red Blood Cells % (auto) 0.0, Anion Gap 5L, Glomerular Filtration Rate > 60.0, Calcium Level 8.5L, Total Bilirubin 0.8, Aspartate Amino Transf (AST/SGOT) 29, Alanine Aminotransferase (ALT/SGPT) 74, Alkaline Phosphatase 193H, Total Protein 5.9L, Albumin 2.5L, Albumin/Globulin Ratio 0.74L, Amylase Level 99, Lipase 590H CBC/BMP Laboratory Tests 06/24/19 06:41 Microbiology Microbiology 06/18/19 Blood Culture - Final, Complete NO GROWTH AFTER 5 DAYS 06/18/19 Blood Culture - Final, Complete NO GROWTH AFTER 5 DAYS Discharge Medications Scheduled Amlodipine Besylate (Amlodipine Besylate) 5 Mg Tablet, 5 MG PO BID, (Reported) Aspirin (Aspirin) 325 Mg Tablet, 325 MG PO DAILY, (Reported) Chlorthalidone (Chlorthalidone) 25 Mg Tablet, 12.5 MG DAILY, (Reported) Ezetimibe (Ezetimibe) 10 Mg Tablet, 10 MG PO QHS, (Reported) Gabapentin (Gabapentin) 300 Mg Capsule, 300 MG PO BID, (Reported) Glipizide (Glipizide ER) 5 Mg Tab.er.24, 5 MG PO DAILY, (Reported) Losartan Potassium (Losartan Potassium) 100 Mg Tablet, 100 MG PO QHS, (Reported) Metformin HCl (Metformin HCl) 500 Mg Tablet, 1,000 MG BID, (Reported) Metoprolol Succinate (Metoprolol Succinate) 100 Mg Tab.er.24h, 100 MG PO DAILY, (Reported) Nitroglycerin (Nitroglycerin) 0.4 Mg Tab.subl, 0.4 MG SL NITRO, (Reported) Hampton-3 Acid Ethyl Esters (Hampton-3 Acid Ethyl Esters) 1 Gm Capsule, 1 GRAM PO QHS, (Reported) Omeprazole (Omeprazole) 40 Mg Capsule., 40 MG PO DAILY, (Reported) Rosuvastatin Calcium (Rosuvastatin Calcium) 20 Mg Tablet, 20 MG PO QHS, (Reported) Sitagliptin Phosphate (Januvia) 100 Mg Tablet, 100 MG PO DAILY, (Reported) Scheduled PRN Bisacodyl (Dulcolax) 5 Mg Tablet.dr, 5 MG PO DAILY PRN for CONSTIPATION, (Reported) Hydrocodone/Acetaminophen (Hydrocodone-Acetamin 5-300 mg) 1 Each Tablet, 1 TAB PO QID PRN for PAIN, (Reported) Indomethacin (Indomethacin) 50 Mg Capsule, 50 MG PO BID PRN for GOUT FLARES, (Reported) Ondansetron (Ondansetron Odt) 4 Mg Tab.rapdis, 4 MG PO Q6H PRN for NAUSEA OR VOMITING, (Reported) Polyethylene Glycol 3350 (Miralax) 119 Gm Powder, 17 GM PO DAILY PRN for CONSTIPATION, (Reported) dilute in 8 ounces of water or juice Allergies Coded Allergies: niacin (Verified Allergy, Intermediate, hives, 06/13/19) VIOLETA CASTLE MD Jun 24, 2019 15:54
[2019-06-24] MEDS ORDERED: OXYC1TAB23 PO (16:58)
== END 2019-06-24 17:00 | disposition home or self-care (01) | DRG 417 ==
LOC: M ED 16:38 → M ED INP 20:53 → ENRESERVTM 21:32 → ENRESERVDT 21:32 → M MS5PR 22:30
PROVIDERS: ADMIT Internal Medicine; ATTEND Internal Medicine
PROC: 0FT44ZZ Resection of Gallbladder, Percutaneous Endoscopic Approach (ICD-10-PCS; principal; 2019-06-22 07:30)
DX: K81.0 Acute cholecystitis (principal); K85.90 Acute pancreatitis without necrosis or infection, unspecified; K57.50 Diverticulosis of both small and large intestine without perforation or abscess without bleeding; I10 Essential (primary) hypertension; E11.9 Type 2 diabetes mellitus without complications; E78.5 Hyperlipidemia, unspecified; K59.09 Other constipation; I25.10 Atherosclerotic heart disease of native coronary artery without angina pectoris; G47.30 Sleep apnea, unspecified; M10.9 Gout, unspecified; N40.0 Benign prostatic hyperplasia without lower urinary tract symptoms; K21.9 Gastro-esophageal reflux disease without esophagitis; Z79.82 Long term (current) use of aspirin; Z79.84 Long term (current) use of oral hypoglycemic drugs; Z79.899 Other long term (current) drug therapy; Z88.8 Allergy status to other drugs, medicaments and biological substances; Z95.5 Presence of coronary angioplasty implant and graft; Z85.048 Personal history of other malignant neoplasm of rectum, rectosigmoid junction, and anus; Z90.49 Acquired absence of other specified parts of digestive tract

== ENCOUNTER → 2019-07-02 | Outpatient (REF) | payer MEDICARE, BC ==
[~2019-07-02] MED LIST changes: +AMOX875T2 PO; +HYDR-2808 PO; +ONDA-83; +OXYC1TAB23 PO
== END ==
LOC: M LAB REF 10:05
PROVIDERS: ATTEND Surgery
DX: N39.0 Urinary tract infection, site not specified (principal)

== ENCOUNTER → 2019-07-22 | Outpatient (CLI) | payer MEDICARE, BC ==
[~2019-07-22] MED LIST changes: +CLOB0.0526 TOP
--- NOTE | 2019-07-22 15:38 | REPPI ---
Left wrist four views : There is no fracture or dislocation. Mineralization and joint spaces are normal. There are no calcifications or foreign bodies. Impression: Negative left wrist . Electronically Signed by Gabo Shultz MD 07/22/2019 03:30 P
== END ==
LOC: M PLAIMG 11:53
PROVIDERS: ATTEND Nurse Practitioner Adult Health
DX: M25.532 Pain in left wrist (principal)
CPT/HCPCS: 73110; G0463

== ENCOUNTER 2019-08-05 10:03 | Day surgery (SDC) | payer MEDICARE, BC ==
[~2019-08-05] VITALS: Ht 177.8 cm; Wt 107.5 kg
[~2019-08-05 10:03] MED LIST changes: +NS 1,000 ML IV ONE
[2019-08-05] MEDS ORDERED: PRED10PA PO (10:42)
[2019-08-05] MEDS ORDERED: ZYLO300T6 PO (10:43)
[2019-08-05] MEDS ORDERED: LIDOCAINE 2% INJ 100 MG/5 ML SDV (FOR ANES.) As Ordered ONE (11:08)
[2019-08-05] MEDS ORDERED: propofoL 500 MG/50 ML VIAL As Ordered ONE (11:08)
[2019-08-05] MEDS ORDERED: METOPROLOL 5 MG/5 ML VIAL As Ordered ONE (11:10)
--- NOTE | 2019-08-05 11:41 | ROOR ---
Patient Name: Yogesh Garcia Procedure Date: 08/05/2019 11:01 AM Date of : 1955 Age: 63 Room: [facility] Gender: Male Note Status: Finalized Procedure: Colonoscopy Indications: High risk colon cancer surveillance: Personal history of colon cancer Providers: Oswaldo Hickey MD Referring MD: Deysi CHRISTIANSEN NP Requesting Provider: Medicines: Monitored Anesthesia Care Complications: No immediate complications. Procedure: Pre-Anesthesia Assessment: - Prior to the procedure, a History and Physical was performed, and patient medications and allergies were reviewed. The patient is competent. The risks and benefits of the procedure and the sedation options and risks were discussed with the patient. All questions were answered and informed consent was obtained. Patient identification and proposed procedure were verified by the physician, the nurse and the anesthesiologist in the endoscopy suite. Mental Status Examination: alert and oriented. Airway Examination: normal oropharyngeal airway and neck mobility. Respiratory Examination: clear to auscultation. CV Examination: normal. Prophylactic Antibiotics: The patient does not require prophylactic antibiotics. Prior Anticoagulants: The patient has taken aspirin, last dose was day of procedure. ASA Grade Assessment: III - A patient with severe systemic disease. After reviewing the risks and benefits, the patient was deemed in satisfactory condition to undergo the procedure. The anesthesia plan was to use monitored anesthesia care (MAC). Immediately prior to administration of medications, the patient was re-assessed for adequacy to receive sedatives. The heart rate, respiratory rate, oxygen saturations, blood pressure, adequacy of pulmonary ventilation, and response to care were monitored throughout the procedure. The physical status of the patient was re-assessed after the procedure. The Colonoscope was introduced through the anus and advanced to the cecum, identified by appendiceal orifice and ileocecal valve. The colonoscopy was somewhat difficult due to poor bowel prep. Successful completion of the procedure was aided by lavage. The patient tolerated the procedure well. The quality of the bowel preparation was fair. Findings: Hemorrhoids were found on perianal exam. Multiple medium-mouthed diverticula were found in the sigmoid colon and descending colon. There was no evidence of diverticular bleeding. A diminutive polyp was found in the descending colon. The polyp was sessile. The polyp was removed with a cold snare. Resection and retrieval were complete. Estimated blood loss was minimal. There was evidence of a prior end-to-end colo-colonic anastomosis in the rectum. This was patent and was characterized by healthy appearing mucosa. The anastomosis was traversed. Non-bleeding external and internal hemorrhoids were found during retroflexion. The hemorrhoids were moderate. Impression: - Preparation of the colon was fair. - Hemorrhoids found on perianal exam. - Moderate diverticulosis in the sigmoid colon and in the descending colon. There was no evidence of diverticular bleeding. - One diminutive polyp in the descending colon, removed with a cold snare. Resected and retrieved. - Patent end-to-end colo-colonic anastomosis, characterized by healthy appearing mucosa. - Non-bleeding external and internal hemorrhoids. Recommendation: - Repeat colonoscopy in 3 years for surveillance. - Await pathology results. Oswaldo Hickey MD Oswaldo Hickey MD 08/05/2019 11:40:48 AM Electronically signed by Oswaldo Hickey MD Number of Addenda: 0 Note Initiated On: 08/05/2019 11:01 AM Estimated Blood Loss: Estimated blood loss was minimal.
[2019-08-05 12:02] VITALS: BP 160/91
== END 2019-08-05 12:40 | disposition home or self-care (01) ==
LOC: M OPP 10:03
PROVIDERS: ATTEND Surgery
DX: Z12.11 Encounter for screening for malignant neoplasm of colon (principal); Z85.038 Personal history of other malignant neoplasm of large intestine; K64.8 Other hemorrhoids; D12.4 Benign neoplasm of descending colon; Z98.0 Intestinal bypass and anastomosis status; K57.30 Diverticulosis of large intestine without perforation or abscess without bleeding; Z79.82 Long term (current) use of aspirin; Z79.84 Long term (current) use of oral hypoglycemic drugs; Z79.891 Long term (current) use of opiate analgesic; Z88.8 Allergy status to other drugs, medicaments and biological substances; Z95.5 Presence of coronary angioplasty implant and graft; Z87.891 Personal history of nicotine dependence

== ENCOUNTER → 2019-09-02 | Outpatient (REF) | payer MEDICARE, BC ==
[~2019-09-02] MED LIST changes: -NS 1,000 ML IV ONE; +PRED10PA PO; +ZYLO300T6 PO
[2019-09-02 13:44] LABS: APPEARANCE, URINE TURBID (CLEAR); BACTERIA, URINE AUTO NEGATIVE (NEGATIVE); BILIRUBIN, URINE AUTO NEGATIVE (NEGATIVE); BLOOD, URINE BLOOD NEGATIVE (NEGATIVE); COLOR, URINE YELLOW (YELLOW); GLUCOSE, URINE (UA) AUTO NEGATIVE (NEGATIVE); KETONE, URINE AUTO TRACE mg/dL (NEGATIVE); LEUKOCYTE ESTERASE, URINE AUTO 3+ (NEGATIVE); NITRITE, URINE AUTO NEGATIVE (NEGATIVE); PROTEIN, URINE AUTO 2+ mg/dL (NEGATIVE); RBC, URINE AUTO 70 /HPF (0-3); SQUAMOUS EPITHELIAL CELL UR AU 0 /HPF (0-6); WBC, URINE AUTO TNTC /HPF (0-3)
== END ==
LOC: M SFHCPLAZ 09:30
PROVIDERS: ATTEND Internal Medicine
DX: R82.90 Unspecified abnormal findings in urine (principal)

== ENCOUNTER → 2019-10-01 | Outpatient (REF) | payer MEDICARE, BC ==
[2019-10-01 18:49] LABS: APPEARANCE, URINE CLOUDY (CLEAR); BACTERIA, URINE AUTO NEGATIVE (NEGATIVE); BILIRUBIN, URINE AUTO NEGATIVE (NEGATIVE); BLOOD, URINE BLOOD NEGATIVE (NEGATIVE); COLOR, URINE YELLOW (YELLOW); GLUCOSE, URINE (UA) AUTO NEGATIVE (NEGATIVE); KETONE, URINE AUTO TRACE mg/dL (NEGATIVE); LEUKOCYTE ESTERASE, URINE AUTO 3+ (NEGATIVE); NITRITE, URINE AUTO NEGATIVE (NEGATIVE); PROTEIN, URINE AUTO 1+ mg/dL (NEGATIVE); RBC, URINE AUTO 7 /HPF (0-3); SPECIFIC GRAVITY URINE AUTO 1.011 (1.002-1.035); SQUAMOUS EPITHELIAL CELL UR AU 0 /HPF (0-6); WBC, URINE AUTO TNTC /HPF (0-3)
== END ==
LOC: M SMT 18:15
PROVIDERS: ATTEND Nurse Practitioner Women's Health
DX: R82.90 Unspecified abnormal findings in urine (principal)

== ENCOUNTER → 2019-10-30 | Outpatient (REF) | payer MEDICARE, BC ==
[2019-10-30 18:57] LABS: APPEARANCE, URINE CLEAR (CLEAR); BACTERIA, URINE AUTO NEGATIVE (NEGATIVE); BILIRUBIN, URINE AUTO NEGATIVE (NEGATIVE); BLOOD, URINE BLOOD NEGATIVE (NEGATIVE); COLOR, URINE YELLOW (YELLOW); GLUCOSE, URINE (UA) AUTO NEGATIVE (NEGATIVE); KETONE, URINE AUTO NEGATIVE (NEGATIVE); LEUKOCYTE ESTERASE, URINE AUTO NEGATIVE (NEGATIVE); NITRITE, URINE AUTO NEGATIVE (NEGATIVE); PROTEIN, URINE AUTO NEGATIVE (NEGATIVE); RBC, URINE AUTO 1 /HPF (0-3); SPECIFIC GRAVITY URINE AUTO 1.012 (1.002-1.035); SQUAMOUS EPITHELIAL CELL UR AU 0 /HPF (0-6); WBC, URINE AUTO 7 /HPF (0-3)
== END ==
LOC: M SMT 17:49
PROVIDERS: ATTEND Nurse Practitioner Women's Health
DX: N39.0 Urinary tract infection, site not specified (principal)
CPT/HCPCS: 81001; 87088; 87186; G0463

== ENCOUNTER 2019-12-14 11:35 | Inpatient (IN) | payer MEDICARE, BC ==
[~2019-12-14] VITALS: Ht 182.9 cm; Wt 108.1 kg
[~2019-12-14 11:35] MED LIST changes: +AMLO1TAB24; +AMLO1TAB24 PO; -AMLO5TAB6; -AMLO5TAB6 PO; -HYDR-2808 PO; +HYDR-4429 PO; -PATIENT COMMENT
[2019-12-14] MEDS ORDERED: NS 1,000 ML IV ONE ×2 (12:45→15:15)
[2019-12-14] MEDS ORDERED: PATIENT COMMENT (13:32)
[2019-12-14 14:00] LABS: BASO % 0.5 % (0.0-1.0); HEMATOCRIT 44.1 % (42.0-52.0); HEMOGLOBIN 14.9 g/dl (13.5-17.5); LYMPH # 0.7 10^3/uL (1.5-5.0); LYMPH % 8.9 % (24.0-44.0); MEAN CORPUSCULAR HGB CONC 33.8 g/dl (32.0-36.5); MEAN CORPUSCULAR VOLUME 97.8 fl (80.0-96.0); MONO # 0.8 10^3/uL (0.0-0.8); MONO % 9.5 % (0.0-5.0); NEUTROPHILS # 6.5 10^3/uL (1.5-8.5); PLATELET COUNT, AUTOMATED 163 10^3/uL (150-450); RED BLOOD COUNT 4.51 10^6/uL (4.30-6.10)
[2019-12-14 14:27] LABS: ALBUMIN 3.9 GM/DL (3.2-5.2); ALT/SGPT 32 U/L (12-78); AMYLASE 26 U/L (25-115); BILIRUBIN,DIRECT 0.2 MG/DL (0.0-0.2); BILIRUBIN,TOTAL 1.2 MG/DL (0.2-1.0); CK-MB VALUE MASS < 1.0 NG/ML (<3.6); CPK CREATINE PHOSPHOKINASE 89 U/L (39-308); ETHYL ALCOHOL (ETHANOL) < 0.003 % (0.000-0.010); LIPASE 39 U/L (73-393); MB/CK RELATIVE INDEX 1.12 (< OR =4); TOTAL PROTEIN 7.1 GM/DL (6.4-8.2); TROPONIN I < 0.02 NG/ML (< 0.10)
[2019-12-14 14:53] LABS: BLOOD UREA NITROGEN 31 MG/DL (7-18); CALCIUM LEVEL 8.2 MG/DL (8.8-10.2); CARBON DIOXIDE LEVEL 23 MEQ/L (21-32); CHLORIDE LEVEL 104 MEQ/L (98-107); CREATININE FOR GFR 2.05 MG/DL (0.70-1.30); GLOMERULAR FILTRATION RATE 34.8 (>49); GLUCOSE, FASTING 137 MG/DL (70-100); SODIUM LEVEL 138 MEQ/L (136-145)
[2019-12-14] MEDS ORDERED: LIDOCAINE 2% 5ML JELLY UROJET TOP ONE (15:30)
[2019-12-14] MEDS ORDERED: PIPERACILLIN/TAZOBACTAM SOD 3.375 GM in D5W MINI-BAG PLUS 50 ML IV ONE (15:30)
[2019-12-14] MEDS ORDERED: ACETAMINOPHEN 500 MG TAB PO ONE (15:30)
--- NOTE | 2019-12-14 15:57 | REP ---
Clinical: Altered mental status. Comparison: None . Findings: Age-related atrophy and microvascular ischemic changes are appreciated. The ventricles and sulci are symmetric. Jade-white differentiation is maintained. There is no evidence for acute intracranial hemorrhage, mass/mass effect, pathology or infarction. No extra-axial fluid collection. Calvarium is intact. Paranasal sinuses and mastoid air cells are clear. Impression: Age related atrophy and microvascular ischemic changes. No acute intracranial hemorrhage, infarction, or mass/mass effect. Electronically Signed by Darin Brown MD 12/14/2019 03:48 P
--- NOTE | 2019-12-14 16:02 | REP ---
Clinical: Abdominal pain with diarrhea. Technique: Axial noncontrast images from the lung bases to the pubic symphysis with coronal and sagittal re-formations. Comparison: 06/18/2019. Findings: Lung bases demonstrate mild chronic appearing fibroatelectatic changes. Visualized heart and pericardium normal. Liver suggests hepatomegaly without focal hepatic lesion identified. Spleen, pancreas, bilateral adrenal glands and kidneys are within normal limits. Chronic symmetric perinephric stranding noted without hydronephrosis. Evidence of prior cholecystectomy. The enteric system is without obstruction or acute inflammatory process normal appendix identified in the right lower quadrant. Evidence for prior partial sigmoid and small bowel resection noted. Pelvis demonstrates normal bladder and age appropriate prostate/seminal vesicles. No ascites. No free air. No adenopathy. Atherosclerotic changes to the aorta and vasculature noted without aneurysm. Musculoskeletal structures demonstrate age-related degenerative changes without acute abnormality. Impression: 1. Chronic changes. 2. No acute abdominopelvic pathology appreciated. Electronically Signed by Darin Brown MD 12/14/2019 03:54 P
--- NOTE | 2019-12-14 16:16 | REPVR ---
PROCEDURE INFORMATION: Exam: CT Lumbar Spine Without Contrast Exam date and time: 12/14/2019 3:35 PM Age: 64 years old Clinical indication: Other: Bowel incontinence TECHNIQUE: Imaging protocol: Computed tomography images of the lumbar spine without contrast. Radiation optimization: All CT scans at this facility use at least one of these dose optimization techniques: automated exposure control; mA and/or kV adjustment per patient size (includes targeted exams where dose is matched to clinical indication); or iterative reconstruction. COMPARISON: MRI-LS SPINE W/O FOLL WITH CON 08/28/2018 8:52 AM FINDINGS: Vertebrae: There are no anterior wedging deformities.No acute lucent fracture lines are visualized.No destructive osseous lesions are identified. There is retrolisthesis at the L5-S1 level, with loss of disc height and degenerative endplate changes, similar to previous MRI dated 08/28/2018. Discs/Spinal canal/Neural foramina: There is right eccentric neural foraminal stenosis at L3-L4, with severe bilateral neural foraminal stenosis at the L4-L5 and L5-S1 levels. Soft tissues: At the L3 level, there is a is fat density intra canalicular lesion which is in keeping with the known intradural lipoma, described on 08/28/2018. This sizable lesion is causing moderate to severe central canal stenosis at this level. IMPRESSION: 1. 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 2. Degenerative changes of the lumbar spine, appearing essentially unchanged compared to MRI dated 08/28/2018. Electronically signed by: Dayan Flores On 12/14/2019 16:15:50 PM
[2019-12-14 17:16] LABS: AMPHETAMINES LEVEL URINE NEGATIVE (NEGATIVE); BARBITURATES URINE NEGATIVE (NEGATIVE); BENZODIAZEPINES URINE NEGATIVE (NEGATIVE); CANNABINOIDS URINE NEGATIVE (NEGATIVE); COCAINE METABOLITE URINE NEGATIVE (NEGATIVE); METHADONE URINE NEGATIVE (NEGATIVE); OPIATES URINE NEGATIVE (NEGATIVE); PHENCYCLIDINE URINE NEGATIVE (NEGATIVE)
[2019-12-14] MEDS: HumaLOG INSULIN (NovoLOG) PER UNIT SC SCH ×2 (17:30→21:00)
--- NOTE | 2019-12-14 17:30 | REP ---
Chest x-ray: Two views. History: Fever, nausea and vomiting, altered mental status. . Comparison study: June 08, 2019 . Findings: The lungs are well inflated and free of infiltrate. The pleural angles are sharp. The heart size is normal. Pulmonary vasculature is not increased. No significant bony abnormality is seen. Monitoring electrodes are present. Impression: Negative chest x-ray. Electronically Signed by Alcides Adorno MD 12/14/2019 05:21 P
[2019-12-14] MEDS ORDERED: DEXTROSE 50% 50 ML SYRINGE IV PRN (18:30)
[2019-12-14] MEDS ORDERED: GLUCAGON INJ 1MG VIAL SC PRN (18:30)
[2019-12-14] MEDS ORDERED: GLUCOSE 4GM CHEW TABLET PO PRN (18:30)
[2019-12-14] MEDS: NS 1,000 ML IV SCH (20:00)
--- NOTE | 2019-12-14 20:05 | HPEPDOC ---
General Date of Admission 12/14/19 Date of Service: Dec 14, 2019 Chief Complaint The patient is a 64-year-old male admitted with a reason for visit of Abdominal Pain. Source: Patient, RN/, Old records History of Present Illness 64 year old male presented to the ED with chief complaints of diarrhea and confusion for 1 day and abnormal blood test. On arrival to ED he was febrile to 103. After tylenol his fever subsided and his confusion also improved though he was still mildly confused. He told me that he started with vomiting and diarrhea yesterday. He also had fever. The diarrhea was watery with crampy abdominal pain. There was no blood in the stool. When the cramps came it was about 8/10 in intensity then the pain subsided after the cramps went away. He had several episodes of diarrhea. He went to the urgent care to be checked out for COVID. COVID came back to be negative. As per after returning home he complained of feeling confused. This morning went to wake him up to go for blood work that was ordered by Urgent care and he though it was night. He was called by the provider from urgent care later in the day to come to the ED as his kidney nu mbers were not good. He self catheterizes 5 times a day. But as per he did not catheterize yesterday since the diarrhea and fever started. In ED he had a temperature of 103, dirty UA, watery diarrhea and an elevated creatinine. Patient was admitted for Enteritis/UTI with acute encephalopathy and VICKY Home Medications Scheduled Allopurinol (Zyloprim) 300 Mg Tablet, 300 MG PO DAILY, (Reported) Amlodipine Besylate (Amlodipine Besylate) 5 Mg Tablet, 5 MG PO BID, (Reported) Aspirin (Aspirin) 325 Mg Tablet, 325 MG PO DAILY, (Reported) Ciprofloxacin HCl (Cipro) 500 Mg Tablet, 1 TAB PO BID Ezetimibe (Ezetimibe) 10 Mg Tablet, 10 MG PO QHS, (Reported) Gabapentin (Gabapentin) 300 Mg Capsule, 300 MG PO BID, (Reported) Glipizide (Glipizide ER) 5 Mg Tab.er.24, 5 MG PO DAILY, (Reported) Metformin HCl (Metformin HCl) 500 Mg Tablet, 1,000 MG BID, (Reported) Metoprolol Succinate (Metoprolol Succinate) 100 Mg Tab.er.24h, 100 MG PO DAILY, (Reported) Nitroglycerin (Nitroglycerin) 0.4 Mg Tab.subl, 0.4 MG SL NITRO, (Reported) Pengilly-3 Acid Ethyl Esters (Pengilly-3 Acid Ethyl Esters) 1 Gm Capsule, 2 GRAM PO QHS, (Reported) Omeprazole (Omeprazole) 40 Mg Capsule.dr, 40 MG PO DAILY, (Reported) Rosuvastatin Calcium (Rosuvastatin Calcium) 20 Mg Tablet, 20 MG PO QHS, (Reported) Sitagliptin Phosphate (Januvia) 100 Mg Tablet, 100 MG PO DAILY, (Reported) Scheduled PRN Bisacodyl (Dulcolax) 5 Mg Tablet.dr, 5 MG PO DAILY PRN for CONSTIPATION, (Reported) Indomethacin (Indomethacin) 50 Mg Capsule, 50 MG PO BID PRN for GOUT FLARES, (Reported) Polyethylene Glycol 3350 (Miralax) 119 Gm Powder, 17 GM PO DAILY PRN for CONSTIPATION, (Reported) dilute in 8 ounces of water or juice Allergies Coded Allergies: niacin (Verified Allergy, Intermediate, hives, 07/28/19) Past Medical History Medical History 1. Coronary artery disease with prior angioplasty and stent placement in 2003, prior history of CO 2. Hypercholesterolemia 3. Hypertension 4. History of sleep apnea not on CPAP 5. History of rectal cancer status post low anterior resection 2007 6. BPH with Chronic urinary retention, self catheterizes. 7. Gastroesophageal reflux disease 8. Diabetes. 9. 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 Neurogenic bladder self catheterises. 13.GOUT 14.FATTY LIVER 15.SEVERE SPINAL CANAL STENOSIS AT L3 LEVEL due to LIPOMA 16.Recurrent UTIs. Surgical History 1. Angioplasty with stent placement 2003. 2. Low anterior resection 3. TURP 2 4. Carpal Tunnel release on the left wrist. 5. RIGHT TRIGGER FINGER 12/2018 6. LAPAROSCOPIC CHOLECYSTECTOMY WITH HAIDER DRAIN 06/2019 Family History FATHER: 85 YRS, OF HEART ATTACK, UNKNOWN PROSTATE PROBLEMS MOTHER: SIBLINGS: BROTHER PASSED FROM HEART ATTACK AT 47. PATERNAL GRAND FATHER: PROSTATE CANCER Social History * Smoker: former Smoker Alcohol: other (daily beer) Drugs: denies A-FIB/CHADSVASC A-FIB History Current/History of A-Fib/PAF?: No Review of Systems Constitutional: Reports: Fever Eyes: Denies: Pain, Vision change ENT: Denies: Head Aches, Ear Pain, Dysphagia Skin: Denies: Rash, Lesions, Breakdown Pulmonary: Denies: Dyspnea, Cough Gastrointestinal: Reports: Vomiting, Abdominal Pain, Diarrhea Physical Examination General Exam: Positive: Alert, Cooperative, No Acute Distress Eye Exam: Positive: PERRLA, Conjunctiva & lids normal, EOMI; Negative: Sclera icteric ENT Exam: Positive: Atraumatic, Mucous membr. moist/pink, Pharynx Normal Neck Exam: Positive: Supple; Negative: JVD, thyromegaly Chest Exam: Positive: Clear to auscultation, Normal air movement Heart Exam: Positive: Rate Normal, Regular Rhythm, Normal S1, Normal S2; Negative: Murmurs, Rubs Abdomen Exam: Positive: Normal bowel sounds, Soft; Negative: Tenderness, Hepatospenomegaly Extremity Exam: Negative: Clubbing, Cyanosis, Edema Skin Exam: Positive: Nl turgor and temperature; Negative: Breakdown, Lesion Vital Signs Vital Signs Date Time Temp Pulse Resp B/P (MAP) Pulse Ox O2 Delivery O2 Flow Rate FiO2 12/14/19 17:07 97 108/53 (71) 96 Room Air 12/14/19 16:22 22 12/14/19 15:22 103.0 Laboratory Data Labs 24H Laboratory Tests 2 12/14/19 13:04: POC Lactate (Misc Panel) 2.72*H 12/14/19 13:20: Urine Opiates Screen NEGATIVE, Urine Methadone Screen NEGATIVE, Urine Barbiturates Screen NEGATIVE, Urine Phencyclidine Screen NEGATIVE, Urine Amphetamines Screen NEGATIVE, Urine Benzodiazepines Screen NEGATIVE, Urine Cocaine Metabolite Screen NEGATIVE, Urine Cannabinoids Screen NEGATIVE 12/14/19 13:42: Immature Granulocyte % (Auto) 0.1, Neutrophils (%) (Auto) 81.0H, Lymphocytes (%) (Auto) 8.9L, Monocytes (%) (Auto) 9.5H, Eosinophils (%) (Auto) 0.0, Basophils (%) (Auto) 0.5, Neutrophils # (Auto) 6.5, Lymphocytes # (Auto) 0.7L, Monocytes # (Auto) 0.8, Eosinophils # (Auto) 0.0, Basophils # (Auto) 0.0, Nucleated Red Blood Cells % (auto) 0.0, Anion Gap 11, Glomerular Filtration Rate 34.8L, Calcium Level 8.2L, Total Bilirubin 1.2H, Direct Bilirubin 0.2, Aspartate Amino Transf (AST/SGOT) 20, Alanine Aminotransferase (ALT/SGPT) 32, Alkaline Phosphatase 54, Total Creatine Kinase 89, Creatine Kinase MB < 1.0, Creatine Kinase MB Relative Index 1.12, Troponin I < 0.02, Total Protein 7.1, Albumin 3.9, Albumin/Globulin Ratio 1.2, Amylase Level 26, Lipase 39L, Ethyl Alcohol Level < 0.003 12/14/19 16:30: Urine Color YELLOW, Urine Appearance HAZY, Urine pH 5.0, Urine Specific Bonham 1.021, Urine Protein 2+H, Urine Glucose (UA) NEGATIVE, Urine Ketones NEGATIVE, Urine Blood 1+H, Urine Nitrite NEGATIVE, Urine Bilirubin NEGATIVE, Urine Urobilinogen 0.2, Urine Leukocyte Esterase 1+H, Urine WBC (Auto) 46H, Urine RBC (Auto) 4H, Urine Hyaline Casts (Auto) 2, Urine Bacteria (Auto) 3+H, Urine Squamous Epithelial Cells 1, Urine Amorphous Sediment SMALLH, Urine Mucus (Auto) SMALL, Urine Sperm (Auto) CBC/BMP Laboratory Tests 12/14/19 13:42 Microbiology Microbiology 12/14/19 Urine Culture, Received Pending 12/14/19 Blood Culture, Received Pending 12/14/19 Blood Culture, Received Pending Assessment/Plan 64 year old male presented to the ED with chief complaints of diarrhea and confusion for 1 day and abnormal blood test. On arrival to ED he was febrile to 103. After tylenol his fever subsided and his confusion also improved though he was still mildly confused. He told me that his fever started yesterday along with watery diarrhea and crampy abdominal pain adn episodes of vomiting. There was no blood in the stool. He had several episodes of diarrhea. He went to the urgent care to be checked out for COVID. COVID came back to be negative. as per after returning home he complained of feeling confused. This morning went to wake him up to go for blood work that was ordered by Urgent care and he though it was night. He was called by the provider from urgent care later in the day to come to the ED as his kidney numbers were not good. He self catheterizes 5 times a day. But as per he did not catheterize yesterday since the diarrhea and fever started. In ED he had a temperature of 103, dirty UA, watery diarrhea and an elevated creatinine. Patient was admitted for Enteritis/UTI with acute encephalopathy and VICKY Diarrhea/vomiting will sent GI panel. Gastroenteritis ? viral continue IVF. CT abdomen and pelvis is unremarkable. Acute metabolic encephalopathy due to fever and infection Dirty UA collected by straight cath patient self catheterises so highly likely this is a UTI rather than contamination from diarrhea. based on last urine culture will give Ceftriaxone VICKY straight cath in the ED produced only 400 cc So i think the VICKY is prerenal from his diarrhea, fever on the back ground of ACEI adn diuretics. stop lisinopril and diuretics for now. will place Cruz Diabetes will hold metformin, januvia continue glipizide will give Lispro sliding scale. Hypertension BP low normal probably due to dehydration will continue only metoprolol with hold parameters. hold amlodipine and lisinopril and diuretics. hyperlipidemia continue ezetimibe and statin. hyperuricemia continue allopurinol Plan / VTE VTE Prophylaxis Ordered?: Yes WENDY MYERS MD Dec 14, 2019 17:42
[2019-12-14] MEDS ORDERED: cefTRIAXone SOD 2 GM in D5W MINI-BAG PLUS 50 ML IV SCH (22:00)
[2019-12-14] MEDS: ROSUVASTATIN 10 MG TAB (CRESTOR) PO SCH (22:30)
[2019-12-14] MEDS: HEPARIN SOD (PORCINE) 5000UNITS/ML 1ML VIAL/SYRINGE SC SCH (22:31)
[2019-12-14] MEDS: EZETIMIBE 10 MG TAB (ZETIA) PO SCH (23:30)
[2019-12-14] MEDS: ACETAMINOPHEN 500 MG TAB PO PRN (23:50)
[2019-12-15] VITALS (8 sets, daily range): BP systolic 104–162; BP diastolic 62–83
[2019-12-15] MEDS: ACETAMINOPHEN 500 MG TAB PO PRN ×3 (00:39→15:58)
[2019-12-15 06:33] LABS: ALBUMIN 3.4 GM/DL (3.2-5.2); CREATININE FOR GFR 1.35 MG/DL (0.70-1.30); GLOMERULAR FILTRATION RATE 56.3 (>49); POTASSIUM SERUM 3.2 MEQ/L (3.5-5.1)
--- NOTE | 2019-12-15 07:35 | ECGEPIP ---
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
[2019-12-15] MEDS: ASPIRIN 325 MG TAB PO SCH (08:09)
[2019-12-15] MEDS: METOPROLOL SUCC (TopROL XL) 100MG *XL* TAB PO SCH (08:09)
[2019-12-15] MEDS: allopurinoL 300 MG TAB PO SCH (08:09)
[2019-12-15] MEDS: glipiZIDE XL 5 MG TABCR PO SCH (08:10)
[2019-12-15] MEDS: HEPARIN SOD (PORCINE) 5000UNITS/ML 1ML VIAL/SYRINGE SC SCH ×2 (08:10→20:35)
[2019-12-15] MEDS: NS 1,000 ML IV SCH ×3 (08:22→20:36)
[2019-12-15] MEDS ORDERED: POTASSIUM CHLORIDE 10 MEQ SR TABLET PO ONE (08:45)
[2019-12-15 09:20] LABS: ABG BASE EXCESS -4.6 (-2.0-2.0); ABG O2 SATURATION 94.8 % (95.0-99.0); ABG PARTIAL PRESSURE CO2 27.2 mmHg (35.0-45.0); ABG PARTIAL PRESSURE O2 66.6 mmHg (75.0-100.0); ABG STANDARD HCO3 20.6 MEQ/L (22.0-26.0); ABG TOTAL CO2 18.8 MEQ/L (23.0-31.0); ABG pH (ARTERIAL) 7.438 UNITS (7.350-7.450)
[2019-12-15] MEDS ORDERED: NS 1,000 ML IV ONE (09:30)
--- NOTE | 2019-12-15 09:31 | REP ---
Clinical: Shortness of breath . Comparison: 12/14/2019 . Findings: The mediastinum and cardiac silhouette are stable and within normal limits for portable technique. The lung sheldon are clear without acute consolidation, effusion, or pneumothorax. Skeletal structures are intact. Impression: No acute cardiopulmonary process appreciated. Electronically Signed by Darin Brown MD 12/15/2019 09:22 A
[2019-12-15 10:00] LABS: CK-MB VALUE MASS < 1.0 NG/ML (<3.6); CPK CREATINE PHOSPHOKINASE 171 U/L (39-308); MB/CK RELATIVE INDEX 0.58 (< OR =4); TROPONIN I < 0.02 NG/ML (< 0.10)
[2019-12-15] MEDS: HumaLOG INSULIN (NovoLOG) PER UNIT SC SCH ×4 (10:00→21:00)
[2019-12-15] MEDS ORDERED: CIPROFLOXACIN 200 MG in IV 1 EA IV SCH (11:00)
[2019-12-15] MEDS: CIPROFLOXACIN 400 MG in IV 1 EA IV SCH ×2 (11:15→22:11)
--- NOTE | 2019-12-15 16:18 | IPNPDOC ---
Text Note Date of Service The patient was seen on 12/15/19. NOTE Subjective: Pt denies CP/SOB/palpitations. Diarrhea improving. Still confused. +Fevers. Objective: Vitals: (see below) General: No acute distress, laying comfortably in bed. HEENT: Moist mucous membranes. Neck: No JVD or lymphadenopathy Cardiac: RRR, No murmurs Pulm: Diminished at the bases b/l. No wheezing, rhonchi Abd: NT/ND + BS Ext: No edema or cyanosis AAO to person and place Strength 5/5 BUE, BLE. CN 2-12 intact. No focal deficits Labs (see below) A/P As per medical records: 64 year old male presented to the ED with chief complaints of diarrhea and confusion for 1 day and abnormal blood test. On arrival to ED he was febrile to 103. After tylenol his fever subsided and his confusion also improved though he was still mildly confused. He told me that his fever started yesterday along with watery diarrhea and crampy abdominal pain adn episodes of vomiting. There was no blood in the stool. He had several episodes of diarrhea. He went to the urgent care to be checked out for COVID. COVID came back to be negative. as per after returning home he complained of feeling confused. This morning went to wake him up to go for blood work that was ordered by Urgent care and he though it was night. He was called by the provider from urgent care later in the day to come to the ED as his kidney numbers were not good. He self catheterizes 5 times a day. But as per he did not catheterize yesterday since the diarrhea and fever started. In ED he had a temperature of 103, dirty UA, watery diarrhea and an elevated creatinine. Patient was admitted for Enteritis/UTI with acute encephalopathy and VICKY Salmonella Gastroenteritis continue IVF. CT abdomen and pelvis is unremarkable. - Rocephin changed to Cipro IV Acute metabolic encephalopathy due to fever and infection Dirty UA collected by straight cath patient self catheterises so highly likely this is a UTI rather than contamination from diarrhea. Cx pending Cont cipro VICKY - improving straight cath in the ED produced only 400 cc So i think the VICKY is prerenal from his diarrhea, fever on the back ground of ACEI adn diuretics. stop lisinopril and diuretics for now. will place Cruz Diabetes will hold metformin, januvia continue glipizide will give Lispro sliding scale. Hypertension BP low normal probably due to dehydration will continue only metoprolol with hold parameters. hold amlodipine and lisinopril and diuretics. hyperlipidemia continue ezetimibe and statin. hyperuricemia continue allopurinol DVT Prophy: Hep SQ VS,Fishbone, I+O VS, Fishbone, I+O Laboratory Tests 12/15/19 05:49 Vital Signs Date Time Temp Pulse Resp B/P (MAP) Pulse Ox O2 Delivery O2 Flow Rate FiO2 12/15/19 14:00 101.2 107 20 140/76 (97) 97 Room Air I&O- Last 24 Hours up to 6 AM 12/15/19 06:00 Intake Total 2700 ml Output Total 1550 ml Balance 1150 ml THOMAS MALONE MD Dec 15, 2019 16:18
[2019-12-15] MEDS: EZETIMIBE 10 MG TAB (ZETIA) PO SCH (20:35)
[2019-12-15] MEDS: ROSUVASTATIN 10 MG TAB (CRESTOR) PO SCH (20:36)
[2019-12-16] MEDS: ACETAMINOPHEN 500 MG TAB PO PRN (04:57)
[2019-12-16 06:00] VITALS: BP 145/81
[2019-12-16 06:47] LABS: HEMATOCRIT 38.7 % (42.0-52.0); HEMOGLOBIN 13.2 g/dl (13.5-17.5); MEAN CORPUSCULAR HEMOGLOBIN 32.5 pg (27.0-33.0); MEAN CORPUSCULAR HGB CONC 34.1 g/dl (32.0-36.5); MEAN CORPUSCULAR VOLUME 95.3 fl (80.0-96.0); PLATELET COUNT, AUTOMATED 146 10^3/uL (150-450); RED BLOOD COUNT 4.06 10^6/uL (4.30-6.10)
[2019-12-16 07:15] LABS: ALBUMIN 2.9 GM/DL (3.2-5.2); ALT/SGPT 45 U/L (12-78); BILIRUBIN,TOTAL 0.7 MG/DL (0.2-1.0); BLOOD UREA NITROGEN 15 MG/DL (7-18); CALCIUM LEVEL 7.3 MG/DL (8.8-10.2); CARBON DIOXIDE LEVEL 23 MEQ/L (21-32); CHLORIDE LEVEL 108 MEQ/L (98-107); CREATININE FOR GFR 1.02 MG/DL (0.70-1.30); GLOMERULAR FILTRATION RATE > 60.0 (>49); GLUCOSE, FASTING 126 MG/DL (70-100); POTASSIUM SERUM 3.3 MEQ/L (3.5-5.1); SODIUM LEVEL 137 MEQ/L (136-145); TOTAL PROTEIN 5.8 GM/DL (6.4-8.2)
[2019-12-16 07:27] LABS: ATYPICAL LYMPH 1 % (0-5); EOSINOPHILS 1 % (0-3); LYMPHOCYTES 8 % (16-44); MONOCYTES 10 % (0-5); NEUTROPHILS 80 % (28-66); PLATELET ESTIMATE NORMAL (NORMAL)
[2019-12-16 07:28] LABS: ANISOCYTOSIS 1+
[2019-12-16] MEDS: HumaLOG INSULIN (NovoLOG) PER UNIT SC SCH ×4 (07:30→21:00)
[2019-12-16] MEDS: NS 1,000 ML IV SCH ×2 (07:46→18:56)
[2019-12-16] MEDS ORDERED: POTASSIUM CHLORIDE 10 MEQ SR TABLET PO ONE (08:45)
[2019-12-16] MEDS: ASPIRIN 325 MG TAB PO SCH (09:03)
[2019-12-16] MEDS: glipiZIDE XL 5 MG TABCR PO SCH (09:03)
[2019-12-16] MEDS: HEPARIN SOD (PORCINE) 5000UNITS/ML 1ML VIAL/SYRINGE SC SCH ×2 (09:03→21:17)
[2019-12-16] MEDS: allopurinoL 300 MG TAB PO SCH (09:03)
[2019-12-16] MEDS: CIPROFLOXACIN 400 MG in IV 1 EA IV SCH ×2 (09:03→21:17)
[2019-12-16] MEDS: METOPROLOL SUCC (TopROL XL) 100MG *XL* TAB PO SCH (09:04)
--- NOTE | 2019-12-16 13:52 | IPNPDOC ---
Text Note Date of Service The patient was seen on 12/16/19. NOTE Subjective: Pt denies CP/SOB/palpitations. Diarrhea improving. Still with Fev ers. No abd pain Objective: Vitals: (see below) General: No acute distress, laying comfortably in bed. HEENT: Moist mucous membranes. Neck: No JVD or lymphadenopathy Cardiac: RRR, No murmurs Pulm: Diminished at the bases b/l. No wheezing, rhonchi Abd: NT/ND + BS Ext: No edema or cyanosis AAO to person and place Strength 5/5 BUE, BLE. CN 2-12 intact. No focal deficits Labs (see below) A/P As per medical records: 64 year old male presented to the ED with chief complaints of diarrhea and confusion for 1 day and abnormal blood test. On arrival to ED he was febrile to 103. After tylenol his fever subsided and his confusion also improved though he was still mildly confused. He told me that his fever started yesterday along with watery diarrhea and crampy abdominal pain adn episodes of vomiting. There was no blood in the stool. He had several episodes of diarrhea. He went to the urgent care to be checked out for COVID. COVID came back to be negative. as per after returning home he complained of feeling confused. This morning went to wake him up to go for blood work that was ordered by Urgent care and he though it was night. He was called by the provider from urgent care later in the day to come to the ED as his kidney numbers were not good. He self catheterizes 5 times a day. But as per he did not catheterize yesterday since the diarrhea and fever started. In ED he had a temperature of 103, dirty UA, watery diarrhea and an elevated creatinine. Simon moeller was admitted for Enteritis/UTI with acute encephalopathy and VICKY Salmonella Gastroenteritis continue IVF. CT abdomen and pelvis is unremarkable. - Cont Cipro IV - Bld cx negative Acute metabolic encephalopathy due to fever and infection Dirty UA collected by straight cath patient self catheterises so highly likely this is a UTI rather than contamination from diarrhea. Cx pending Cont cipro VICKY - improving straight cath in the ED produced only 400 cc So i think the VICKY is prerenal from his diarrhea, fever on the back ground of ACEI adn diuretics. stop lisinopril and diuretics for now. s/p Cruz Diabetes will hold metformin, januvia continue glipizide will give Lispro sliding scale. Hypertension BP low normal probably due to dehydration will continue only metoprolol with hold parameters. hold amlodipine and lisinopril and diuretics. hyperlipidemia continue ezetimibe and statin. hyperuricemia continue allopurinol DVT Prophy: Hep SQ VS,Fishbone, I+O VS, Fishbone, I+O Laboratory Tests 12/16/19 06:18 Vital Signs Date Time Temp Pulse Resp B/P (MAP) Pulse Ox O2 Delivery O2 Flow Rate FiO2 12/16/19 09:04 84 130/74 12/16/19 09:00 98.8 12/16/19 06:00 17 98 Room Air I&O- Last 24 Hours up to 6 AM 12/16/19 06:00 Intake Total 5380 ml Output Total 1775 ml Balance 3605 ml THOMAS MALONE MD Dec 16, 2019 13:52
[2019-12-16 14:00] VITALS: BP 131/74
[2019-12-16] MEDS: ROSUVASTATIN 10 MG TAB (CRESTOR) PO SCH (21:17)
[2019-12-16] MEDS: EZETIMIBE 10 MG TAB (ZETIA) PO SCH (21:17)
[2019-12-16 22:00] VITALS: BP 150/78
[2019-12-17] MEDS: ACETAMINOPHEN 500 MG TAB PO PRN (00:25)
[2019-12-17] MEDS ORDERED: RAMELTEON 8 MG TAB (ROZEREM) PO SCH (00:30)
[2019-12-17] MEDS: NS 1,000 ML IV SCH (05:58)
[2019-12-17 06:00] VITALS: BP 131/78
[2019-12-17 06:38] LABS: BASO % 0.3 % (0.0-1.0); EOS # 0.1 10^3/uL (0.0-0.5); EOS % 1.5 % (0.0-3.0); HEMATOCRIT 39.5 % (42.0-52.0); HEMOGLOBIN 13.6 g/dl (13.5-17.5); LYMPH % 15.6 % (24.0-44.0); MEAN CORPUSCULAR HEMOGLOBIN 32.6 pg (27.0-33.0); MEAN CORPUSCULAR HGB CONC 34.4 g/dl (32.0-36.5); MEAN CORPUSCULAR VOLUME 94.7 fl (80.0-96.0); MONO # 0.7 10^3/uL (0.0-0.8); MONO % 10.3 % (0.0-5.0); NEUTROPHILS # 4.8 10^3/uL (1.5-8.5); PLATELET COUNT, AUTOMATED 175 10^3/uL (150-450); RED BLOOD COUNT 4.17 10^6/uL (4.30-6.10); WHITE BLOOD COUNT 6.6 10^3/uL (4.0-10.0)
[2019-12-17 06:57] LABS: ALBUMIN 2.8 GM/DL (3.2-5.2); ALT/SGPT 42 U/L (12-78); BILIRUBIN,TOTAL 0.7 MG/DL (0.2-1.0); BLOOD UREA NITROGEN 11 MG/DL (7-18); CARBON DIOXIDE LEVEL 21 MEQ/L (21-32); CHLORIDE LEVEL 112 MEQ/L (98-107); CREATININE FOR GFR 0.86 MG/DL (0.70-1.30); GLOMERULAR FILTRATION RATE > 60.0 (>49); GLUCOSE, FASTING 119 MG/DL (70-100); POTASSIUM SERUM 3.6 MEQ/L (3.5-5.1); SODIUM LEVEL 143 MEQ/L (136-145); TOTAL PROTEIN 5.7 GM/DL (6.4-8.2)
[2019-12-17] MEDS: ASPIRIN 325 MG TAB PO SCH (08:18)
[2019-12-17] MEDS: HumaLOG INSULIN (NovoLOG) PER UNIT SC SCH (08:18)
[2019-12-17] MEDS: HEPARIN SOD (PORCINE) 5000UNITS/ML 1ML VIAL/SYRINGE SC SCH (08:18)
[2019-12-17] MEDS: glipiZIDE XL 5 MG TABCR PO SCH (08:18)
[2019-12-17] MEDS: allopurinoL 300 MG TAB PO SCH (08:18)
[2019-12-17 08:22] VITALS: BP 148/78
[2019-12-17] MEDS: METOPROLOL SUCC (TopROL XL) 100MG *XL* TAB PO SCH (08:22)
[2019-12-17] MEDS: CIPROFLOXACIN 400 MG in IV 1 EA IV SCH (10:42)
[2019-12-17] MEDS ORDERED: CIPR-249 PO (11:26)
== END 2019-12-18 | disposition home or self-care (01) | DRG 871 ==
LOC: M ED 11:35 → M ED INP 18:12 → ENRESERV 23:15 → M MSPAV 12-15 02:20
PROVIDERS: ADMIT Internal Medicine Nephrology; ATTEND Internal Medicine
DX: A41.9 Sepsis, unspecified organism (principal); G93.41 Metabolic encephalopathy; N39.0 Urinary tract infection, site not specified; N17.9 Acute kidney failure, unspecified; A02.0 Salmonella enteritis; Z79.899 Other long term (current) drug therapy; Z79.82 Long term (current) use of aspirin; I25.10 Atherosclerotic heart disease of native coronary artery without angina pectoris; E78.5 Hyperlipidemia, unspecified; K21.9 Gastro-esophageal reflux disease without esophagitis; M10.9 Gout, unspecified; E11.9 Type 2 diabetes mellitus without complications; Z85.048 Personal history of other malignant neoplasm of rectum, rectosigmoid junction, and anus; N40.0 Benign prostatic hyperplasia without lower urinary tract symptoms; R33.9 Retention of urine, unspecified; Z87.891 Personal history of nicotine dependence; I10 Essential (primary) hypertension

== ENCOUNTER → 2019-12-14 | Outpatient (CLI) | payer MEDICARE, BC ==
[~2019-12-14] MED LIST changes: +PATIENT COMMENT
[2019-12-14 08:52] LABS: BASO # 0.1 10^3/uL (0.0-0.2); BASO % 0.4 % (0.0-1.0); EOS % 0.1 % (0.0-3.0); HEMATOCRIT 46.8 % (42.0-52.0); HEMOGLOBIN 15.8 g/dl (13.5-17.5); LYMPH # 1.1 10^3/uL (1.5-5.0); LYMPH % 9.5 % (24.0-44.0); MEAN CORPUSCULAR HEMOGLOBIN 33.2 pg (27.0-33.0); MEAN CORPUSCULAR HGB CONC 33.8 g/dl (32.0-36.5); MEAN CORPUSCULAR VOLUME 98.3 fl (80.0-96.0); MONO # 1.1 10^3/uL (0.0-0.8); MONO % 9.4 % (0.0-5.0); NEUTROPHILS # 9.3 10^3/uL (1.5-8.5); NEUTROPHILS % 80.3 % (36.0-66.0); PLATELET COUNT, AUTOMATED 185 10^3/uL (150-450); RED BLOOD COUNT 4.76 10^6/uL (4.30-6.10); WHITE BLOOD COUNT 11.6 10^3/uL (4.0-10.0)
[2019-12-14 09:25] LABS: BILIRUBIN,TOTAL 1.3 MG/DL (0.2-1.0); CALCIUM LEVEL 8.8 MG/DL (8.8-10.2); GLOMERULAR FILTRATION RATE 35.8 (>49); POTASSIUM SERUM 4.3 MEQ/L (3.5-5.1); TOTAL PROTEIN 7.3 GM/DL (6.4-8.2)
== END ==
LOC: M LAB 08:09
PROVIDERS: ATTEND Physician Assistant
DX: A08.39 Other viral enteritis (principal)

== ENCOUNTER → 2020-03-22 | Outpatient (REF) | payer MEDICARE, BC ==
[~2020-03-22] MED LIST changes: +CIPR-249 PO; +PATIENT COMMENT
[2020-03-22 14:50] LABS: ALBUMIN 4.3 GM/DL (3.2-5.2); ALT/SGPT 26 U/L (12-78); BILIRUBIN,TOTAL 0.7 MG/DL (0.2-1.0); BLOOD UREA NITROGEN 18 MG/DL (7-18); CALCIUM LEVEL 9.3 MG/DL (8.8-10.2); CARBON DIOXIDE LEVEL 27 MEQ/L (21-32); CHLORIDE LEVEL 107 MEQ/L (98-107); CHOLESTEROL LEVEL 94 MG/DL (<200); CREATININE FOR GFR 1.09 MG/DL (0.70-1.30); GLOMERULAR FILTRATION RATE > 60.0 (>49); GLUCOSE, FASTING 116 MG/DL (70-100); NON-HDL-C 69 MG/DL; POTASSIUM SERUM 4.6 MEQ/L (3.5-5.1); SODIUM LEVEL 139 MEQ/L (136-145); TRIGLYCERIDES LEVEL 381 MG/DL (<150)
[2020-03-22 15:12] LABS: HEMOGLOBIN A1c 5.3 %
[2020-03-22 15:18] LABS: MAU/CREAT RATIO 899.5 MCG/MG (0.0-30.0)
[2020-03-22 15:27] LABS: HDL CHOLESTEROL 25 MG/DL (>40)
[2020-03-22 15:28] LABS: LDL CHOLESTEROL 0 MG/DL (<100)
== END ==
LOC: M SFHCPLAZ 09:55
PROVIDERS: ATTEND Family Medicine
DX: I10 Essential (primary) hypertension (principal); K76.0 Fatty (change of) liver, not elsewhere classified; E11.65 Type 2 diabetes mellitus with hyperglycemia; E78.2 Mixed hyperlipidemia

== ENCOUNTER → 2020-03-24 | Outpatient (CLI) | payer MEDICARE, BC ==
[2020-03-24 13:59] LABS: TOTAL PROTEIN,RANDOM URINE 108.3 MG/DL (0.0-12.0)
== END ==
LOC: M LAB 08:19
PROVIDERS: ATTEND Family Medicine
DX: R80.9 Proteinuria, unspecified (principal)

== ENCOUNTER → 2020-04-12 | Outpatient (REF) | payer MEDICARE, BC ==
[2020-04-12 18:06] LABS: CREATININE 24 HOUR, URINE 1812.5 MG/24HR (950-2500); TOTAL PROTEIN 24 HOUR URINE 740.9 MG/24HR (50-150); URINE TOTAL PROTEIN 51.1 MG/DL (0-12)
== END ==
LOC: M LAB REF 16:54
PROVIDERS: ATTEND Internal Medicine Nephrology
DX: R80.9 Proteinuria, unspecified (principal); E11.22 Type 2 diabetes mellitus with diabetic chronic kidney disease

== ENCOUNTER → 2020-08-22 | Outpatient (REF) | payer MEDICARE, BC ==
[~2020-08-22] MED LIST changes: +GABA-282 PO; -GABA-843 PO; -OMEG1CAP4 PO; +OMEG1CAP85 PO
[2020-08-22 11:59] LABS: BASO # 0.1 10^3/uL (0.0-0.2); BASO % 0.5 % (0.0-1.0); EOS # 0.1 10^3/uL (0.0-0.5); EOS % 0.7 % (0.0-3.0); HEMATOCRIT 47.4 % (42.0-52.0); HEMOGLOBIN 15.8 g/dl (13.5-17.5); LYMPH % 9.7 % (24.0-44.0); MEAN CORPUSCULAR HEMOGLOBIN 32.1 pg (27.0-33.0); MEAN CORPUSCULAR HGB CONC 33.3 g/dl (32.0-36.5); MEAN CORPUSCULAR VOLUME 96.3 fl (80.0-96.0); MONO # 0.6 10^3/uL (0.0-0.8); MONO % 5.8 % (2.0-8.0); NEUTROPHILS # 8.8 10^3/uL (1.5-8.5); PLATELET COUNT, AUTOMATED 196 10^3/uL (150-450); RED BLOOD COUNT 4.92 10^6/uL (4.30-6.10); WHITE BLOOD COUNT 10.6 10^3/uL (4.0-10.0)
[2020-08-22 12:31] LABS: ALBUMIN 4.1 GM/DL (3.2-5.2); ALT/SGPT 27 U/L (12-78); BILIRUBIN,TOTAL 0.8 MG/DL (0.2-1.0); BLOOD UREA NITROGEN 13 MG/DL (7-18); CALCIUM LEVEL 9.3 MG/DL (8.8-10.2); CARBON DIOXIDE LEVEL 29 MEQ/L (21-32); CHLORIDE LEVEL 105 MEQ/L (98-107); CREATININE FOR GFR 1.21 MG/DL (0.70-1.30); GLOMERULAR FILTRATION RATE > 60.0 (>49); GLUCOSE, FASTING 138 MG/DL (70-100); POTASSIUM SERUM 4.6 MEQ/L (3.5-5.1); SODIUM LEVEL 139 MEQ/L (136-145); TOTAL PROTEIN 6.8 GM/DL (6.4-8.2)
== END ==
LOC: M SFHCPLAZ 11:13
PROVIDERS: ATTEND Physician Assistant
DX: R82.90 Unspecified abnormal findings in urine (principal); R52 Pain, unspecified; R68.83 Chills (without fever)
CPT/HCPCS: 36415; 51798; 80053; 81002; 83605; 85025; 87088; 87186; 87426; G0463

== ENCOUNTER → 2020-09-21 | Outpatient (REF) | payer MEDICARE, BC ==
[2020-09-21 11:31] LABS: BLOOD UREA NITROGEN 12 MG/DL (7-18); CALCIUM LEVEL 9.8 MG/DL (8.8-10.2); CARBON DIOXIDE LEVEL 30 MEQ/L (21-32); CHLORIDE LEVEL 108 MEQ/L (98-107); CHOLESTEROL LEVEL 117 MG/DL (<200); CREATININE FOR GFR 1.28 MG/DL (0.70-1.30); GLOMERULAR FILTRATION RATE 59.7 (>49); GLUCOSE, FASTING 150 MG/DL (70-100); HDL CHOLESTEROL 26 MG/DL (>40); NON-HDL-C 91 MG/DL; POTASSIUM SERUM 4.9 MEQ/L (3.5-5.1); SODIUM LEVEL 142 MEQ/L (136-145); TRIGLYCERIDES LEVEL 434 MG/DL (<150)
== END ==
LOC: M PLALAB 08:25
PROVIDERS: ATTEND Family Medicine
DX: E11.65 Type 2 diabetes mellitus with hyperglycemia (principal); E78.2 Mixed hyperlipidemia; I10 Essential (primary) hypertension; N40.0 Benign prostatic hyperplasia without lower urinary tract symptoms
CPT/HCPCS: 36415; 80048; 80061; 83036; G0103

== ENCOUNTER → 2021-02-15 | Outpatient (CLI) | payer MEDICARE, BC ==
[~2021-02-15] MED LIST changes: +ESSE250T PO; +LISI10TA22 PO; +OMEP40CA4 PO; -OMEP40CA97 PO; +VELT1POW PO
== END ==
LOC: M LABSMTC 09:08
PROVIDERS: ATTEND Anesthesiology
DX: Z11.52 Encounter for screening for COVID-19 (principal)

== ENCOUNTER 2021-02-20 07:07 | Day surgery (SDC) | payer MEDICARE, BC ==
[~2021-02-20] VITALS: Ht 177.8 cm; Wt 108.9 kg
[~2021-02-20 07:07] MED LIST changes: +CYCLOPENTOLATE 1% OPHTH SOLN 2 ML BTL OD SCH; +DUOVISC (0.50ML VISCOAT/0.85ML PROVISC) OPHTH KIT As Ordered ONE; +FLURBIPROFEN 0.03% OPHTH SOLN 2.5 ML OD SCH; +LIDOCAINE 1% SDV 5ML VIAL As Ordered ONE; +LR 1,000 ML IV SCH; +PHENYLEPHRINE 2.5% OPHTH SOL 2ML OD SCH; +TETRACAINE 0.5% OPHTH SOLN 4ML OD SCH
[2021-02-20] MEDS ORDERED: MIDAZOLAM INJ 2MG/2ML VIAL (J2250 PER 1MG) As Ordered ONE (08:08)
[2021-02-20] MEDS ORDERED: fentaNYL 100 MCG/2 ML INJECTION (J3010) As Ordered ONE (08:09)
[2021-02-20 11:25] VITALS: BP 141/67
== END 2021-02-20 11:25 | disposition home or self-care (01) ==
LOC: M SDC 07:07
PROVIDERS: ATTEND Ophthalmology
DX: H25.11 Age-related nuclear cataract, right eye (principal); K21.9 Gastro-esophageal reflux disease without esophagitis; I10 Essential (primary) hypertension; E78.5 Hyperlipidemia, unspecified; E11.9 Type 2 diabetes mellitus without complications; G47.30 Sleep apnea, unspecified; N40.0 Benign prostatic hyperplasia without lower urinary tract symptoms; Z85.038 Personal history of other malignant neoplasm of large intestine; M10.9 Gout, unspecified; Z86.711 Personal history of pulmonary embolism; Z79.82 Long term (current) use of aspirin; Z79.84 Long term (current) use of oral hypoglycemic drugs; Z79.899 Other long term (current) drug therapy; Z98.61 Coronary angioplasty status; I25.2 Old myocardial infarction
CPT/HCPCS: 66984; J2250; J3010; V2632

== ENCOUNTER → 2021-03-15 | Outpatient (CLI) | payer MEDICARE, BC ==
[~2021-03-15] MED LIST changes: +ALLO300T2 PO; -CYCLOPENTOLATE 1% OPHTH SOLN 2 ML BTL OD SCH; -DUOVISC (0.50ML VISCOAT/0.85ML PROVISC) OPHTH KIT As Ordered ONE; -FLURBIPROFEN 0.03% OPHTH SOLN 2.5 ML OD SCH; -LIDOCAINE 1% SDV 5ML VIAL As Ordered ONE; -LR 1,000 ML IV SCH; -PHENYLEPHRINE 2.5% OPHTH SOL 2ML OD SCH; -TETRACAINE 0.5% OPHTH SOLN 4ML OD SCH
== END ==
LOC: M LABSMTC 11:31
PROVIDERS: ATTEND Anesthesiology
DX: Z01.818 Encounter for other preprocedural examination (principal)

== ENCOUNTER 2021-03-20 07:39 | Day surgery (SDC) | payer MEDICARE, BC ==
[~2021-03-20] VITALS: Ht 177.8 cm; Wt 109.0 kg
[~2021-03-20 07:39] MED LIST changes: +DUOVISC (0.50ML VISCOAT/0.85ML PROVISC) OPHTH KIT As Ordered ONE; +LIDOCAINE 1% SDV 5ML VIAL As Ordered ONE; +LR 1,000 ML IV SCH
--- OUTSIDE RECORDS SUMMARY | 2021-03-20 07:45 | CCD ---
Author Author [facility] Organization [facility] ems Address Unknown Phone Unavailable Care Team Providers Care Marketing Analytics Lead Name Role Phone Melida Das Unavailable PROBLEMS Type Condition ICD9-CM Code DME88-CY Code Onset Dates Condition S tatus W/U Status Risk SNOMED Code Notes Problem Benign prostatic hyperplasia , unspecified whether lower urinary tract symptoms present N40.0 Active confirmed 255164843 Problem Mixed hyperlipidemia E78.2 Active confirmed 328682297 Problem Urinary incontinence without sensory awareness N39 .42 Active confirmed 226419349 Problem Erectile dysfunction, unspecified erectile dysfunction typ e N52.9 Active confirmed 644742424 Problem ANTOINETTE (obstructive sleep apnea) G47.33 Active confirm ed 90716257 Problem Essential hypertension I10 Active confirmed 77919599 Problem History of colon cancer Z85.038 Active confirmed 052390820 Problem Gastroesophageal reflux disease without esophagitis K21.9 Active confirmed 560453536 Problem Arteriosclerosis I70.90 Active confirmed 720 39384 Problem 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 Active confirmed 495846169 Problem Fatty liver disease, nonalcoholic K76.0 Active confirmed 219760348 Problem Age-related nuclear cataract, left eye H25.12 A ctive confirmed [id number] Problem Idiopathic gout of multiple sites, unspecified chronicity M10.09 Active confirmed 78834200 Problem Age-related nuclear cataract, right eye H25.11 Active confirmed 395100467436498 Problem History of ID (myocardial infarction) I25.2 Ac tive confirmed 002339774 Problem Type 2 diabetes mellitus wit h hyperglycemia, without long-term current use of insulin E11.65 Active confirmed 35014001 Problem Stage 2 chronic kidney disease N18.2 Active confir med 710637219 Problem Decreased hearing of both ears H91.93 Active confir med 710310452 Problem Decreased vision in both eyes H54.3 Active confirm ed 357765942 Problem Tinnitus of both ears H93.13 Active confirmed 3806944071144 ALLERGIES Allergen (clinical drug ingredient) Drug/Non Drug Allergy do cumented on EMR Reaction Allergy Type Onset Date Status niacin Niacin([facility] Code:[address]-94) Hives Drug Allergy Active ENCOUNTERS from 1955 to 2021-02-13 Encounter Location Date Provider Diagnosis [place] [address] [facility] [phone] [place] [address] Jan, Melida Das Pre-op evaluation Z01.818 ; Age-related nuclear cataract, right eye H25.11 ; Age-related nuclear cataract, left eye H25.12 ; Arteriosclerosis I70.90 ; History of ID (myocardial infarction) I25.2 ; Type 2 diabetes mellitus with hyperglycemia, without long-term current use of insulin E11.65 ; Stage 2 chronic kidney disease N18.2 ; ANTOINETTE (obstructive sleep apnea) G47.33 ; Essential hypertension I10 and Mixed hyperlipidemia E78.2 IMMUNIZATIONS Vaccine Route Administration Date Status COVID-19 dose #2 given elsewhere Unspecified Unknown Jul 17, 2020 Administered COVID-19 dose #1 given elsewhere Unspecified Unknown Jun 26, 2020 Administered Influenza Pharmacy Given Unknown Mar 23, 2019 Adminis tered Influenza 18 yrs & older Flublok Unknown Mar 08, 2020 Administered Zoster 50mcg/0.5mL Shingrix Unknown Feb 04, 2019 Admi nistered Zoster 50mcg/0.5mL Shingrix Unknown August 06, 2018 Admi nistered Pneumococcal Adult 0.5mL Pneumovax 23 Unknown December 13 020 Administered Pneumococcal 0.5mL Prevnar 13 IM Intramuscular May 12, 2019 A dministered SOCIAL HISTORY Tobacco Use: Social History Observation Description Date Details (start date - stop date) Former Smoker Sex Assigned At : Social History Observation Description Sex Assigned At Unknown Education: Question Answer Notes Level of Education: Not Finished College Audit Question Answer Notes Total Score: 2 Interpretation: Alcohol Education Language: Question Answer Notes Languages spoken: Yi Pentecostal: Question Answer Notes Pentecostal ,NONE Sexual Hx: Question Answer Notes Had sex in the last 12 months (vaginal, oral, or anal)? No Have you ever had an STD? No Drug and Alcohol Question Answer Notes Total Score: 0 Interpretation: No problems reported Alcohol Screening: Question Answer Notes Did you have a drink containing alcohol in the past year? Ye s Points 2 Interpretation Negative How often did you have six or more drinks on one occas ion in the past year? Never (0 points) How many drinks did you have on a typica l day when you were drinking in the past year? 1 or 2 (0 points) How often did you have a drink containing alcohol in t he past year? Two to four times a month (2 points) Tobacco Use: Question Answer Notes Are you a: former smoker SMOKES 1/2 PACK PER DAY STARTED AT 13YRS OLD How long has it been since you last smoked? 1-5 years REASON FOR REFERRAL No Information VITAL SIGNS Weight 233 lbs Jan, Height 70 in Jan, BMI 33.43 kg/m2 Jan, Heart Rate 66 /min Jan, Respiratory Rate 18 /min Jan, Temperature 97 degrees Fahrenheit Jan, Oximetry 100 Jan, Blood pressure systolic 132 mm Hg Jan, Blood pressure diastolic 68 mm Hg Jan, MEDICATIONS Medication SIG (Take, Route, Frequency, Duration) Notes Start Da te End Date Status Amlodipine Besylate 5 MG TAKE 1 TABLET TWICE A DAY Active Metoprolol Succinate ER 100 MG 1 tablet Orally Once a day Active Lisinopril 10 MG TAKE 1 TABLET ONCE DAILY Active Melatonin 10 MG 1 tablet in the evening Orally Once a day Active Nitroglycerin 0.4 MG 0.4 mg Sublingual q 5 min x3 doses for CP Nov, Active Indomethacin 50 MG TAKE 1 CAPSULE TWICE DAILY W ITH FOOD OR MILK NECESSARY FOR GOUT PAIN Orally Twice a day for 30 Days Active Lancets - as directed subcutaneously T wice daily before breakfast and dinner. DX: E11.65 for 90 day(s) Jul, Active metFORMIN HCl 500 MG TAKE 2 TABLETS TWICE A DAY WITH BREAKFAST AND DI NNER Active Blood Pressure Monitor - check blood pressure On L ar m Daily if blood pressure is above 150/xx, otherwise weekly for 99 months Nov, Active Veltassa 8.4 GM 1 packet dissolved in water. Take other medications at least 3 hours before or 3 hours after this medication Orally Once a day Active Aspirin 325 MG 1 tablet Orally Once a day Active Glucometer as directed subcutaneously T wice daily before breakfast and dinner. DX: E11.65 for 99 months Jul, Active Omeprazole 40 MG 1 capsule Orally Once a day Active Magnesium 400 MG as directed Orally Active Allopurinol 300 MG TAKE 1 TABLET ONCE DAILY Active Rosuvastatin Calcium 20 MG 1 tablet Orally Once a day Active Gabapentin 300 MG 1 capsule Orally Once a day Active Blood Glucose Test - as directed In Vitro Twice d aily before breakfast and dinner. E11.65 for 90 day(s) Jul, Act elaina PROCEDURES No Information RESULTS No Results REASON FOR VISIT Preoperative evaluation for cataract sx OD on 02/20/21, left cataract surgery at later date at [facility] by Dr. Licona; surgeon's fax [phone], diagnosis code H 25.11 MEDICAL (GENERAL) HISTORY Type Description Date Medical History ID at age 51 - Dr. Powers Medical History Colon cancer resected age 48 - Dr. Rios rodriguez Medical History Urinary Rentention due to da mage from colon surgery - self cath 6 x per day Medical History Prior history of incontinenc e, none since he starting self cathing Medical History Hx BPH Medical History HTN Medical History Mild spinal stenosis; MRI 08/13/2017 Medical History Conus medullaris lipoma; MRI 08/13/2017 Medical History Diabetes Type 2 Medical History GERD Medical History Collapsed Lung right side 2/2 pneumonia Medical History Former smoker, quit 10/2017; smoked 50 years, 1 ppd; declines LDLCT 03/21/2020 Medical History Gout Medical History Hyperlipidemia Medical History 06/2019 CT chest no AAA Medical History 06/2019 Fatty liver Medical History ANTOINETTE - positional with sleepi ng on back or stomach; sleeps on his side Medical History CKD2, proteinuria - Dr. Flanagan Surgical History lower resection of the colon Lulu 2007 Surgical History TURP Surgical History carpal tunnel LEFT Surgical History CYSTOSCOPY Surgical History NECK LESION REMOED Surgical History right triger finger 12/2018 Surgical History Laprascopic cholecystectomy with HAIDER arreola 06/2019 Surgical History Colonoscopy - mod diverticul osis, IH; repeat in 3 years; Dr. Hickey 07/2019 Hospitalization History surgery related Hospitalization History Pneumonia Hospitalization History Acute Cholecystitis, Acute P ancreatitis--Laproscoptic Cholecystectomy 06/18/29-06/24/19 Goals Section No Information Health Concerns No Information MEDICAL EQUIPMENT No Information MENTAL STATUS No Information FUNCTIONAL STATUS No Information ASSESSMENTS Encounter Date Diagnosis Assessment Notes Treatment Notes Treatm ent Clinical Notes Jan, Pre-op evaluation (ICD-10 - Z01.818) I discussed the risks vs. benefits of surgery with the patient in generic terms. I feel that the patient is at low risk for perioperative complications as this is a low risk surgery. EKG done at Dr. Powers's office on 02/07/2021 showed sinus bradycardia with rate of 54 bpm, 1st degree AV block, left axis deviation; similar to prior EKG done 06/08/2019. He does not need to hold any medications for surgery. The patient knows that there is always some risk with surgery and that each individual has to make a decision regarding whether the benefits of surgery outweigh the risks in order to proceed. I advised the patient to direct further questions regarding the specifics of the proposed surgical procedure and specific risks to the surgeon. At this time I feel that the patient's acute and chronic medical conditions are sufficiently optimized to proceed with surgery. Jan, Age-related nuclear cataract, right eye (ICD-10 - H25.11) Surgery is planned. Jan, Age-related nuclear cataract, left eye (ICD-10 - H25.12) Jan, Arteriosclerosis (ICD-10 - I70.90) No chest discomfort or angina equivalents. Jan, History of ID (myocardial infarction) (ICD-10 - I25.2) No chest discomfort or angina equivalents. Jan, Type 2 diabetes mellitus wit h hyperglycemia, without long-term current use of insulin (ICD-10 - E11.65) A1c was normal in 08/2020. Jan, Stage 2 chronic kidney disease (ICD-10 - N18.2) Renal function is stable. Jan, ANTOINETTE (obstructive sleep apnea) (ICD-10 - G47.33) Positional on back; treats with sleeping on his side. Jan, Essential hypertension (ICD-10 - I10) Per JNC 8 guidelines, goal BP 150/90 if age >60; is meeting goal on current regimen. Jan, Mixed hyperlipidemia (ICD-10 - E78.2) PLAN OF TREATMENT Medication Medication Name Sig Start Date Stop Date metFORMIN HCl 500 MG TAKE 2 TABLETS TWICE A DAY WITH BREAKFAST A ND DINNER Rosuvastatin Calcium 20 MG 1 tablet Orally Once a day Gabapentin 300 MG 1 capsule Orally Once a day Indomethacin 50 MG TAKE 1 CAPSULE TWICE DAILY W ITH FOOD OR MILK NECESSARY FOR GOUT PAIN Orally Twice a day for 30 Days Omeprazole 40 MG 1 capsule Orally Once a day Allopurinol 300 MG TAKE 1 TABLET ONCE DAILY Melatonin 10 MG 1 tablet in the evening Orally Once a day Magnesium 400 MG as directed Orally Veltassa 8.4 GM 1 packet dissolved in water. Take other medications at least 3 hours before or 3 hours after this medication Orally Once a day Aspirin 325 MG 1 tablet Orally Once a day Metoprolol Succinate ER 100 MG 1 tablet Orally Once a day Nitroglycerin 0.4 MG 0.4 mg Sublingual q 5 min x3 doses for CP 2 3 Nov, 2017 Amlodipine Besylate 5 MG TAKE 1 TABLET TWICE A DAY Lisinopril 10 MG TAKE 1 TABLET ONCE DAILY Treatment Notes Assessment Notes Clinical Notes Pre-op evaluation I discussed the risk s vs. benefits of surgery with the patient in generic terms. I feel that the patient is at low risk for perioperative complications as this is a low risk surgery.EKG done at Dr. Tangela garcia's office on 02/07/2021 showed sinus bradycardia with rate of 54 bpm, 1st degree AV block, left axis deviation; similar to prior EKG done 06/08/2019.He does not need to hold any medications for surgery.The patient knows that there is always some risk with surgery and that each individual has to make a decision regarding whether the benefits of surgery outweigh the risks in order to proceed. I advised the patient to direct further questions regarding the specifics of the proposed surgical procedure and specific risks to the surgeon.At this time I feel that the patient's acute and chronic medical cond itions are sufficiently optimized to proceed with surgery. Age-related nuclear cataract, right eye Surgery is planned. Arteriosclerosis No chest discomfort or angina equivalents. History of ID (myocardial infarction) No chest discomfort or angina equivalents. Type 2 diabetes mellitus with hyperglyce jennifer, without long-term current use of insulin A1c was normal in 08/2020. Stage 2 chronic kidney disease Renal fun ction is stable. ANTOINETTE (obstructive sleep apnea) Positional on back; treats with sleeping on his side. Essential hypertension Per JNC 8 guideli elizabeth, goal BP 150/90 if age >60; is meeting goal on current regimen. Future Test Test Name Order Date HEMOGLOBIN A1c 20210313 Basic Metabolic Profile (BMP) [id number] Next Appt Details as sched 02/2021 Reason: Provider Name:Melida Das, 2021-03-23 07:30:00 AM, [address] [facility], , [place], [address], Insurance Providers Payer Name Payer Address Payer Phone Insured Name Patient Relati onship to Insured Coverage Start Date Coverage End Date BS [place] [facility] [address] [facility] [address] Uma Leyva MEDICARE Part A and B [address] [facility] [phone] AMANDA LEYVA
--- OUTSIDE RECORDS SUMMARY | 2021-03-20 07:45 | CCD ---
Author Author [facility] Organization [facility] em[facility] Address Unknown Phone Unavailable Care Team Providers Care Ar Manager Name Role Phone Melida Das Unavailable PROBLEMS Type Condition ICD9-CM Code VHX88-FJ Code Onset Dates Condition S tatus W/U Status Risk SNOMED Code Notes Problem Benign prostatic hyperplasia , unspecified whether lower urinary tract symptoms present N40.0 Active confirmed 473798590 Problem Mixed hyperlipidemia E78.2 Active confirmed 276851375 Problem Urinary incontinence without sensory awareness N39 .42 Active confirmed 106669423 Problem Erectile dysfunction, unspecified erectile dysfunction typ e N52.9 Active confirmed 319684330 Problem ANTOINETTE (obstructive sleep apnea) G47.33 Active confirm ed 99785667 Problem Essential hypertension I10 Active confirmed 27034855 Problem History of colon cancer Z85.038 Active confirmed 088084653 Problem Gastroesophageal reflux disease without esophagitis K21.9 Active confirmed 938290073 Problem Arteriosclerosis I70.90 Active confirmed 720 63507 Problem 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 Active confirmed 181731365 Problem Fatty liver disease, nonalcoholic K76.0 Active confirmed 034303947 Problem Age-related nuclear cataract, left eye H25.12 A ctive confirmed 330005763426559 Problem Idiopathic gout of multiple sites, unspecified chronicity M10.09 Active confirmed 38391885 Problem Age-related nuclear cataract, right eye H25.11 Active confirmed 328008556930254 Problem History of [place] (myocardial infarction) I25.2 Ac tive confirmed 245424540 Problem Type 2 diabetes mellitus wit h hyperglycemia, without long-term current use of insulin E11.65 Active confirmed 89623611 Problem Stage 2 chronic kidney disease N18.2 Active confir med 501079339 Problem Decreased hearing of both ears H91.93 Active confir med 800056880 Problem Decreased vision in both eyes H54.3 Active confirm ed 895027374 Problem Tinnitus of both ears H93.13 Active confirmed 4114900601050 ALLERGIES Allergen (clinical drug ingredient) Drug/Non Drug Allergy do cumented on EMR Reaction Allergy Type Onset Date Status niacin Niacin([facility] Code:[address]-68) Hives Drug Allergy Active ENCOUNTERS from 1955 to 2021-02-14 Encounter Location Date Provider Diagnosis [place] [id number] [facility] [phone] [place] [address] Jan, Melida Das IMMUNIZATIONS Vaccine Route Administration Date Status COVID-19 [...] Education Language: Question Answer Notes Languages spoken: Bahamian Confucianist: Question Answer Notes Confucianist ,NONE Sexual Hx: Question Answer Notes Had [...] REASON FOR REFERRAL No Information VITAL SIGNS No information MEDICATIONS Medication SIG (Take, Route, Frequency, Duration) [...] Information RESULTS No Results REASON FOR VISIT med fill MEDICAL (GENERAL) HISTORY Type Description Date Medical History [place] at age 51 - Dr. Powers Medical History Colon cancer resected age 48 - Dr. Nation ua Medical History Urinary Rentention due to da [...] No Information FUNCTIONAL STATUS No Information ASSESSMENTS No Information PLAN OF TREATMENT Medication Medication Name Sig [...] 10 MG TAKE 1 TABLET ONCE DAILY Next Appt Details Provider Name:Melida Das, 2021-03-23 07:30:00 AM, [address] [place] [address], , [place], [address], Insurance Providers Payer Name Payer Address Payer Phone Insured Name Patient Relati onship to Insured Coverage Start Date Coverage End Date SIRIA GRULLON [facility] [address] [facility] [id number] [phone] Uma Leyva MEDICARE Part A and B [address] [facility] [address] [phone] AMANDA LEYVA self
--- OUTSIDE RECORDS SUMMARY | 2021-03-20 07:45 | CCD ---
Author Author [facility] Organization [facility] Address Unknown Phone Unavailable Care Team Providers Care Binder Coverstitch Name Role Phone Melida Das Unavailable PROBLEMS ALLERGIES ENCOUNTERS from 1955 to 2020-12-28 IMMUNIZATIONS SOCIAL HISTORY REASON FOR REFERRAL from 1955 to 2020-12-28 VITAL SIGNS MEDICATIONS PROCEDURES No Information RESULTS No Results REASON FOR VISIT MEDICAL (GENERAL) HISTORY Goals Section Health Concerns MEDICAL EQUIPMENT No Information MENTAL STATUS FUNCTIONAL STATUS ASSESSMENTS PLAN OF TREATMENT Insurance Providers
--- OUTSIDE RECORDS SUMMARY | 2021-03-20 07:46 | CCD ---
Author Author [facility] Organization [facility] Address Unknown Phone Unavailable Care Team Providers Care Vice President Of Recruiting Name Role Phone MCELHERTIMMY, KARON PA Unavailable Unavailable MCELHERAN, KARON PA Unavailable Unavailable MCELHERAN, KARON PA Unavailable Unavailable MCELHERAN, KARON PA Unavailable Unavailable MCELHERAN, KARON PA Unavailable Unavailable MCELHERAN, KARON PA Unavailable Unavailable MCELHERAN, KARON PA Unavailable Unavailable MCELHERAN, KARON PA Unavailable Unavailable MCELHERAN, KARON PA Unavailable Unavailable MCELHERAN, KARON PA Unavailable Unavailable MCELHERAN, KARON PA Unavailable Unavailable MCELHERAN, KARON PA Unavailable Unavailable MCELHERAN, KARON PA Unavailable Unavailable MCELHERAN, KARON PA Unavailable Unavailable MCELHERAN, KARON PA Unavailable Unavailable MCELHERAN, KARON PA Unavailable Unavailable MCELHERAN, KARON PA Unavailable Unavailable MCELHERAN, KARON PA Unavailable Unavailable MCELHERAN, KARON PA Unavailable Unavailable MCELHERAN, KARON PA Unavailable Unavailable MCELHERAN, KARON PA Unavailable Unavailable MCELHERAN, KARON PA Unavailable Unavailable MCELHERAN, KARON PA Unavailable Unavailable MCELAN, KARON PA Unavailable Unavailable MCELHERAN, KARON PA Unavailable Unavailable MCELHERAN, KARON PA Unavailable Unavailable MCELHERAN, KARON PA Unavailable Unavailable MCELHERAN, KARON PA Unavailable Unavailable MCELHERAN, KARON PA Unavailable Unavailable Erwin, N Sami OIL OPERATOR Unavailable Unavailable Erwin, N Sami OIL OPERATOR Unavailable Unavailable Erwin, N Sami OIL OPERATOR Unavailable Unavailable [place], N Sami OIL OPERATOR Unavailable Unavailable Erwin, N Sami OIL OPERATOR Unavailable Unavailable Erwin, N Sami OIL OPERATOR Unavailable Unavailable [place], N Sami OIL OPERATOR Unavailable Unavailable [place], N Sami OIL OPERATOR Unavailable Unavailable Erwin, N Sami OIL OPERATOR Unavailable Unavailable Erwin, N Sami OIL OPERATOR Unavailable Unavailable [place], N Sami OIL OPERATOR Unavailable Unavailable Erwin, N Sami OIL OPERATOR Unavailable Unavailable Erwin, N Sami OIL OPERATOR Unavailable Unavailable [place], N Sami OIL OPERATOR Unavailable Unavailable [place], N Sami OIL OPERATOR Unavailable Unavailable [place], N Sami OIL OPERATOR Unavailable Unavailable [place], N Sami OIL OPERATOR Unavailable Unavailable Erwin, N Sami OIL OPERATOR Unavailable Unavailable [place], N Sami OIL OPERATOR Unavailable Unavailable Erwin, N Sami OIL OPERATOR Unavailable Unavailable Erwin, N Sami OIL OPERATOR Unavailable Unavailable [place], N Sami OIL OPERATOR Unavailable Unavailable Erwin, N Sami OIL OPERATOR Unavailable Unavailable Erwin, N Sami OIL OPERATOR Unavailable Unavailable Erwin, N Sami OIL OPERATOR Unavailable Unavailable [place], N Sami OIL OPERATOR Unavailable Unavailable Erwin, N Sami OIL OPERATOR Unavailable Unavailable Erwin, N Sami OIL OPERATOR Unavailable Unavailable [place], N Sami OIL OPERATOR Unavailable Unavailable Erwin, N Sami OIL OPERATOR Unavailable Unavailable [place], N Sami OIL OPERATOR Unavailable Unavailable Erwin, N Sami OIL OPERATOR Unavailable Unavailable [place], N Sami OIL OPERATOR Unavailable Unavailable Tiffani Powers MD Unavailable Unavailable Tiffani Powers MD Unavailable Unavailable Ora Powerstech Unavailable Unavailable Ora Powerstech Unavailable Unavailable Tiffani Powers MD Unavailable Unavailable Tiffani Powers MD Unavailable Unavailable Tiffani Powers MD Unavailable Unavailable Tiffani Powers MD Unavailable Unavailable Tiffani Powers MD Unavailable Unavailable Jude Powersjtech Unavailable Unavailable Jude Powersjtech Unavailable Unavailable Tiffani Powers MD Unavailable Unavailable Ora Powerstech Unavailable Unavailable Ora Powerstech Unavailable Unavailable SleOra meektech Unavailable Unavailable Ora Powerstech Unavailable Unavailable Jude Powersjtech Unavailable Unavailable Ora Powerstech Unavailable Unavailable Ora Powerstech Unavailable Unavailable Ora Powerstech Unavailable Unavailable Tiffani Powers MD Unavailable Unavailable SleJude meekjtech Unavailable Unavailable SleJude meekjtech Unavailable Unavailable SleJude meekjtech Unavailable Unavailable SleJude meekjtech Unavailable Unavailable SleOra meektech Unavailable Unavailable SleJude meekjtech MD Unavailable Unavailable Slezka, Vojtech MD Unavailable Unavailable Slezka, Vojtech MD Unavailable Unavailable Slezka, Vojtech MD Unavailable Unavailable Slezka, Vojtech MD Unavailable Unavailable Slezka, Vojtech MD Unavailable Unavailable Slezka, Vojtech MD Unavailable Unavailable Slezka, Vojtech MD Unavailable Unavailable Slezka, Vojtech MD Unavailable Unavailable Slezka, Vojtech MD Unavailable Unavailable Slezka, Vojtech MD Unavailable Unavailable Slezka, Vojtech MD Unavailable Unavailable Slezka, Vojtech MD Unavailable Unavailable Slezka, Vojtech MD Unavailable Unavailable Slezka, Vojtech MD Unavailable Unavailable Slezka, Vojtech MD Unavailable Unavailable Slezka, Vojtech MD Unavailable Unavailable Slezka, Vojtech MD Unavailable Unavailable Slezka, Vojtech MD Unavailable Unavailable Slezka, Vojtech MD Unavailable Unavailable Slezka, Vojtech MD Unavailable Unavailable Slezka, Vojtech MD Unavailable Unavailable Slezka, Vojtech MD Unavailable Unavailable Slezka, Vojtech MD Unavailable Unavailable Slezka, Vojtech MD Unavailable Unavailable Slezka, Vojtech MD Unavailable Unavailable Slezka, Vojtech MD Unavailable Unavailable Slezka, Vojtech MD Unavailable Unavailable Slezka, Vojtech MD Unavailable Unavailable Slezka, Vojtech MD Unavailable Unavailable Slezka, Vojtech MD Unavailable Unavailable Slezka, Vojtech MD Unavailable Unavailable Re-disclosure Warning The records that you are about to access may contain information from federally-assisted alcohol or drug abuse programs. If such information is present, then the following federally mandated warning applies: This information has been disclosed to you from records protected by federal confidentiality rules (42 CFR part 2). The federal rules prohibit you from making any further disclosure of this information unless further disclosure is expressly permitted by the written consent of the person to whom it pertains or as otherwise permitted by 42 CFR part 2. A general authorization for the release of medical or other information is NOT sufficient for this purpose. The Federal rules restrict any use of the information to criminally investigate or prosecute any alcohol or drug abuse patient.The records that you are about to access may contain highly sensitive health information, the redisclosure of which is protected by Article 27-F of the [facility] Public Health law. If you continue you may have access to information: Regarding HIV / AIDS; Provided by facilities licensed or operated by the [facility] Office of Mental Health; or Provided by the [facility] Office for People With Developmental Disabilities. If such information is present, then the following [facility] mandated warning applies: This information has been disclosed to you from confidential records which are protected by state law. State law prohibits you from making any further disclosure of this information without the specific written consent of the person to whom it pertains, or as otherwise permitted by law. Any unauthorized further disclosure in violation of state law may result in a fine or usp sentence or both. A general authorization for the release of medical or other information is NOT sufficient authorization for further disc losure. Family History Family Member Name Family Member Gender Family Member Status Date o f Status Description Data Source(s) Unknown Male Problem MEDENT ([facility]) Unknown Unknown Problem MEDENT ([facility]) father/brother Encounters Encounter Providers Location Date Indications Data Source(s ) Unknown [address] [facility] [id number] 02/13/2021 12:00:00 AM EDT eCW1 ([facility]) Outpatient [facility] [id number] 02/13/2021 12:00:00 AM EDT eCW1 ([facility]) Outpatient Attender: Sami Hood NP SJP.ARIANNE-SJP.ARIANNE 021 12:00:00 AM EDT - 02/07/2021 11:06:[address] [facility] Unknown [address] [facility] [place] [address] 12/27/2020 12:00:00 AM EDT eCW1 ([facility]) Unknown [address] [facility] [place] [address] 12/13/2020 12:00:00 AM EDT eCW1 ([facility]) Outpatient [address] [facility] [place] [address] 11/09/2020 12:00:00 AM EDT eCW1 ([facility]) [place] [address] [facility] [place] [address] 09/21/2020 12:00:00 AM EDT [facility]CW1 ([facility]) [place] [address] [facility] [address] 09/21/2020 12:00:00 AM EDT eCW1 ([facility]) [place] [address] [facility] [place] [address] 08/22/2020 12:00:00 AM EDT eCW1 ([facility]) [place] [address] [facility] [address] 08/22/2020 12:00:00 AM EDT [facility] [place] [address] [facility] [place] [address] 08/22/2020 12:00:00 AM EDT eCW1 [facility]) Outpatient Attender: Sami Hood NPAttender: Tiffani Powers MD SJP.ARIANNE-SJP.ARIANNE 08/01/2020 12:00:00 AM EST - 08/01/2020 10:43:04 AM EST [facility] Outpatient Attender: KARON LOPEZ Physical Therapy 04/14/2020 08:15:00 AM EST [facility] ([facility]) [place] [address] [facility] [address] 03/25/2020 12:00:00 AM EDT eCW1 ([facility]) [place] [address] [facility] [address] 03/23/2020 12:00:00 AM EDT eCW1 ([facility] Outpatient Attender: KARON LOPEZ Physical Therapy 03/22/2020 08:45:00 AM EDT MEDENT ([facility]) Outpatient [address] [facility] [place] [address] 03/21/2020 12:00:00 AM EDT eCW1 ([facility]) Unknown [address] [facility] [address] 03/04/2020 12:00:00 AM EDT eCW1 ([facility]) [place] [address] [facility] [address] 02/25/2020 12:00:00 AM EDT eCW1 ([facility]) Immunizations Vaccine Date Status Description Data Source(s) COVID-19 VACC, MRNA(PFIZER)/PF 03/12/2021 12:00:00 AM EDT completed [facility] COVID-19 VACCINE Pfizer 03/01/2021 12:00:00 AM EDT completed [facility] Vaccine Series Complete: YESThis Data wa s Submitted to [facility] [employer]. COVID-19 dose #2 given elsewhere Unspecified 07/17/2020 07:4 7:00 AM EST completed eCW1 ([facility]) COVID-19 dose #2 given elsewhere Unspecified 07/17/2020 07:4 7:00 AM EST completed eCW1 ([facility]) COVID-19 dose #2 given elsewhere Unspecified 07/17/2020 07:4 7:00 AM EST completed eCW1 ([facility]) COVID-19 dose #2 given elsewhere Unspecified 07/17/2020 07:4 7:00 AM EST completed eCW1 ([facility]) COVID-19 dose #2 given elsewhere Unspecified 07/17/2020 07:4 7:00 AM EST completed eCW1 ([facility]) COVID-19 dose #2 given elsewhere Unspecified 07/17/2020 07:4 7:00 AM EST completed eCW1 ([facility]) COVID-19 dose #2 given elsewhere Unspecified 07/17/2020 07:4 7:00 AM EST completed eCW1 ([facility]) COVID-19 VACCINE Pfizer 07/17/2020 12:00:00 AM EST completed [facility] Vaccine Series Complete: YESThis Data wa s Submitted to [facility] [employer]. COVID-19 VACCINE, MRNA, [id number], LNP-S (PFIZER)/PF 07/17/19 12:00:00 AM EST completed [facility] COVID-19 dose #1 given elsewhere Unspecified 06/26/2020 07:4 7:00 AM EST completed eCW1 ([facility]) COVID-19 dose #1 given elsewhere Unspecified 06/26/2020 07:4 7:00 AM EST completed eCW1 ([facility]) COVID-19 dose #1 given elsewhere Unspecified 06/26/2020 07:4 7:00 AM EST completed eCW1 ([facility]) COVID-19 dose #1 given elsewhere Unspecified 06/26/2020 07:4 7:00 AM EST completed eCW1 ([facility]) COVID-19 dose #1 given elsewhere Unspecified 06/26/2020 07:4 7:00 AM EST completed eCW1 ([facility]) COVID-19 dose #1 given elsewhere Unspecified 06/26/2020 07:4 7:00 AM EST completed eCW1 ([facility]) COVID-19 dose #1 given elsewhere Unspecified 06/26/2020 07:4 7:00 AM EST completed eCW1 ([facility]) COVID-19 VACCINE Pfizer 06/26/2020 12:00:00 AM EST completed [facility] Vaccine Series Complete: NOThis Data was Submitted to [facility] Via [employer]. COVID-19 VACCINE, MRNA, [id number], LNP-S (PFIZER)/PF 06/26/19 21 12:00:00 AM EST completed [facility] influenza, recombinant, quadrIvalent,injectable, prese rvative free 03/08/2020 09:30:00 AM EDT completed eCW1 ([facility]) influenza, recombinant, quadrIvalent,injectable, prese rvative free 03/08/2020 09:30:00 AM EDT completed eCW1 ([facility]) influenza, recombinant, quadrIvalent,injectable, prese rvative free 03/08/2020 09:30:00 AM EDT completed eCW1 ([facility]) influenza, recombinant, quadrIvalent,injectable, prese rvative free 03/08/2020 09:30:00 AM EDT completed eCW1 ([facility]) influenza, recombinant, quadrIvalent,injectable, prese rvative free 03/08/2020 09:30:00 AM EDT completed eCW1 ([facility]) influenza, recombinant, quadrIvalent,injectable, prese rvative free 03/08/2020 09:30:00 AM EDT completed eCW1 ([facility]) influenza, recombinant, quadrIvalent,injectable, prese rvative free 03/08/2020 09:30:00 AM EDT completed eCW1 ([facility]) influenza, recombinant, quadrIvalent,injectable, prese rvative free 03/08/2020 09:30:00 AM EDT completed eCW1 ([facility]) influenza, recombinant, quadrIvalent,injectable, prese rvative free 03/08/2020 09:30:00 AM EDT completed eCW1 ([facility]) influenza, recombinant, quadrIvalent,injectable, prese rvative free 03/08/2020 09:30:00 AM EDT completed eCW1 ([facility]) influenza, recombinant, quadrIvalent,injectable, prese rvative free 03/08/2020 09:30:00 AM EDT completed eCW1 ([facility]) influenza, recombinant, quadrIvalent,injectable, prese rvative free 03/08/2020 09:30:00 AM EDT completed eCW1 ([facility]) influenza, recombinant, quadrIvalent,injectable, prese rvative free 03/08/2020 09:30:00 AM EDT completed eCW1 ([facility]) INFLUENZA VACCINE QUADRIVALENT 2019- (65 YR UP)/MF59 C.1/PF 02/24/2020 12:00:00 AM EDT completed [facility] Medications Medication Brand Name Start Date Product Form Dose Route Admi nistrative Instructions Pharmacy Instructions Status Indications Reaction Description Data Source(s) 60 mcg (15 mcg x 4)/0.5 mL 02/03/2021 12:00:00 AM EDT syring e 0 INJECT DIRECTED PER STANDING ORDER INJECT DIRECTED PER STANDING ORDER SOLD: 02/03/2021 [facility] 0.5 % 01/18/2021 12:00:00 AM EDT drops 10 INSTILL ONE DROP FOUR TIMES A DAY IN THE RIGHT EYE START 3 DAYS PRIOR TO SURGERY INSTILL ONE DROP FOUR TIMES A DAY IN THE RIGHT EYE START 3 DAYS PRIOR TO SURGERY SOLD: 01/23/2021 [facility] 0.5 % 01/18/2021 12:00:00 AM EDT drops, viscous 3 INSTILL 1 DROP INTO RIGHT EYE FOUR TIMES A DAY TO START 3 DAYS PRIOR TO SURGERY INSTILL 1 DROP INTO RIGHT EYE FOUR TIMES A DAY TO START 3 DAYS PRIOR TO SURGERY SOLD: 01/23/2021 [facility] 0.5 % 01/18/2021 12:00:00 AM EDT drops, viscous 3 INSTILL 1 DROP INTO RIGHT EYE FOUR TIMES A DAY TO START 3 DAYS PRIOR TO SURGERY INSTILL 1 DROP INTO RIGHT EYE FOUR TIMES A DAY TO START 3 DAYS PRIOR TO SURGERY SOLD: 03/04/2021 [facility] 0.5 % 01/18/2021 12:00:00 AM EDT drops 10 INSTILL ONE DROP FOUR TIMES A DAY IN THE RIGHT EYE START 3 DAYS PRIOR TO SURGERY INSTILL ONE DROP FOUR TIMES A DAY IN THE RIGHT EYE START 3 DAYS PRIOR TO SURGERY SOLD: 03/04/2021 [facility] 1 % 01/17/2021 12:00:00 AM EDT drops,suspension 15 INSTILL ONE DROP FOUR TIMES A DAY IN THE RIGHT EYE START AFTER SURGERY INSTILL ONE DROP FOUR TIMES A DAY IN THE RIGHT EYE START AFTER SURGERY SOLD: 01/23/2021 [facility] 1 % 01/17/2021 12:00:00 AM EDT drops,suspension 15 INSTILL ONE DROP FOUR TIMES A DAY IN THE RIGHT EYE START AFTER SURGERY INSTILL ONE DROP FOUR TIMES A DAY IN THE RIGHT EYE START AFTER SURGERY SOLD: 03/04/2021 [facility] Ciprofloxacin 500 MG Oral Tablet [Cipro] Cipro 500 MG Cipro 500 MG 08/22/2020 12:00:00 AM EDT 1.0 {tablet} active Ci pro 500 MG eCW1 ([facility]) Ciprofloxacin 500 MG Oral Tablet [Cipro] Cipro 500 MG Cipro 500 MG 08/22/2020 12:00:00 AM EDT 1.0 {tablet} active Ci pro 500 MG eCW1 ([facility]) Ciprofloxacin 500 MG Oral Tablet [Cipro] Cipro 500 MG Cipro 500 MG 08/22/2020 12:00:00 AM EDT 1.0 {tablet} active Ci pro 500 MG eCW1 ([facility]) 500 mg 08/22/2020 12:00:00 AM EDT tablet 14 TAKE ONE TABLET BY MOUTH EVERY 12 HOURS FOR 7 DAYS TAKE ONE TABLET BY MOUTH EVERY 12 HOURS FOR 7 DAYS [facility] Metformin hydrochloride 500 MG Oral Tablet METFORMIN HCL 07/11/2020 12:00:00 AM EST tablet 120 TAKE TWO TABLETS BY MOUTH TWICE A DAY WITH BREAKFAST AND DINNER TAKE TWO TABLETS BY MOUTH TWICE A DAY WITH BREAKFAST A ND DINNER SOLD: 09/14/2020 [facility] Metformin hydrochloride 500 MG Oral Tablet METFORMIN HCL 07/11/2020 12:00:00 AM EST tablet 120 TAKE TWO TABLETS BY MOUTH TWICE A DAY WITH BREAKFAST AND DINNER TAKE TWO TABLETS BY MOUTH TWICE A DAY WITH BREAKFAST A ND DINNER SOLD: 08/09/2020 [facility] Metformin hydrochloride 500 MG Oral Tablet METFORMIN HCL 07/11/2020 12:00:00 AM EST tablet 120 TAKE TWO TABLETS BY MOUTH TWICE A DAY WITH BREAKFAST AND DINNER TAKE TWO TABLETS BY MOUTH TWICE A DAY WITH BREAKFAST A ND DINNER SOLD: 07/13/2020 [facility] 8.4 g PACK [id number] 06/09/2020 12:00:00 AM EST 8.4 {packet} active 8.4 packets once a week [facility] Metformin hydrochloride 500 MG Oral Tablet METFORMIN HCL 06/06/2020 12:00:00 AM EST tablet 120 TAKE TWO TABLETS BY MOUTH TWICE A DAY WITH BREAKFAST AND DINNER TAKE TWO TABLETS BY MOUTH TWICE A DAY WITH BREAKFAST A ND DINNER SOLD: 06/07/2020 [facility] Lisinopril 10 MG Oral Tablet lisinopril (PRINIVIL,ZEST RIL) 10 MG tablet lisinopril (PRINIVIL,ZESTRIL) 10 MG tablet 06/06/2020 12:00:00 AM EST 1 {tbl} active 1 tablet daily [facility] 500 mg 05/02/2020 12:00:00 AM EST tablet 120 TAKE TWO TABLETS BY MOUTH TWICE A DAY WITH BREAKFAST AND DINNER TAKE TWO TABLETS BY MOUTH TWICE A DAY WI TH BREAKFAST AND DINNER SOLD: 05/03/2020 [facility] Metformin hydrochloride 500 MG Oral Tablet METFORMIN HCL 04/04/2020 12:00:00 AM EST tablet 120 TAKE TWO TABLETS BY MOUTH TWICE A DAY WITH BREAKFAST AND DINNER TAKE TWO TABLETS BY MOUTH TWICE A DAY WITH BREAKFAST A ND DINNER SOLD: 04/04/2020 [facility] Lisinopril 10 MG Oral Tablet Lisinopril 10 MG 03/25/2020 12:00:00 A M EDT 1.0 {tablet} active Lisinopril 10 MG eCW1 ( [facility]) 4 mg 03/22/2020 12:00:00 AM EDT tablets,dose pack 21 DIRECTED DIRECTED SOLD: 03/22/2020 [facility] tizanidine 4 MG Oral Capsule Tizanidine HCL 03/22/2020 12:00:00 AM EDT ORAL active MEDENT ([facility]) 4 mg 03/22/2020 12:00:00 AM EDT capsule 60 TAKE ONE CAPSULE BY MOUTH THREE TIMES A DAY TAKE ONE CAPSULE BY MOUTH THREE TIMES A DAY SOLD: 03/22/2020 [facility] Methylprednisolone 4 MG Oral Tablet [Medrol] Medrol 12:00:00 AM EDT active MEDENT ( [facility]) Metformin hydrochloride 500 MG Oral Tablet METFORMIN HCL 02/25/2020 12:00:00 AM EDT tablet 120 TAKE TWO TABLETS BY MOUTH TWICE A DAY WITH BREAKFAST AND DINNER TAKE TWO TABLETS BY MOUTH TWICE A DAY WITH BREAKFAST A ND DINNER SOLD: 03/03/2020 [facility] Glipizide 5 MG Oral Tablet glipiZIDE (GLUCOTROL) 5 MG tablet glipiZIDE (GLUCOTROL) 5 MG tablet 10/09/2018 12:00:00 AM EDT 5 mg Oral aborted Take 5 mg by mouth daily [facility] Chlorthalidone 25 MG Oral Tablet chlorthalidone (HYGRO TEN) 25 MG tablet chlorthalidone (HYGROTEN) 25 MG tablet 10/09/2018 12:00:00 AM EDT 12.5 mg Oral aborted Take 12.5 mg by mout h daily [facility] Losartan Potassium 100 MG Oral Tablet losartan (COZAAR ) 100 MG tablet losartan (COZAAR) 100 MG tablet 01/06/2018 12:00:00 AM EDT 100 mg Oral aborted Take 100 mg by mouth daily [facility] ezetimibe 10 MG Oral Tablet ezetimibe (ZETIA) 10 MG ta blet ezetimibe (ZETIA) 10 MG tablet 01/06/2018 12:00:00 AM EDT 10 mg Oral aborted Take 10 mg by mouth daily [facility] Insurance Providers Payer name Policy type / Coverage type Policy ID Covered alliance party ID Covered alliance party's relationship to vaughn Policy Vaughn Plan Information BS [facility] Part B [id number] Family Dependent R [id number] [facility] FEDERAL EMPLOYEE PROGRAM [id number] WI2 [id number] [facility] [id number] xxxxxxxxx [phone] [facility] FEDERAL [employer]EE PROGRAM [id number] WI2 [id number] [facility] [id number] Spo [id number] BS Fed Plan Commercial [id number] Family Dependent [id number] BS Fed Plan Commercial [id number] Family Dependent [id number] BS Fed Plan Commercial [id number] Family Dependent [id number] BS Fed Plan Commercial [id number] Family Dependent [id number] BS Fed Plan Commercial [id number] Self [id number] MEDICARE [id number] Cally [id number] MEDICARE [id number] A MEDICARE [id number] xxxxxxxxxxx [id number] [facility]-Medicare Part B [id number] ANSI-Commercial [id number] ANSI-Medicare Part B [id number] ANSI-Commercial [id number] ANSI-Medicare Part B [id number] ANSI-Commercial [id number] ANSI-Medicare Part B [id number] ANSI-Commercial [id number] ANSI-Medicare Part B [id number] ANSI-Medicare Part B [id number] ANSI-Commercial [id number] ANSI-Medicare Part B [id number] ANSI-Commercial [id number] ANSI-Commercial [id number] ANSI-Medicare Part B [id number] ANSI-Commercial [id number] ANSI-Medicare Part B [id number] ANSI-Commercial [id number] ANSI-Commercial [id number] ANSI-Commercial [id number] ANSI-Commercial [id number] ANSI-Commercial [id number] ANSI-Commercial [id number] ANSI-Commercial [id number] ANSI-Commercial [id number] ANSI-Commercial [id number] ANSI-Commercial [id number] ANSI-Commercial [id number] ANSI-Commercial [id number] [facility] B [id number] P [id number] [facility] FEDERAL EMPLOYEE PROGRAM [id number] [facility] Federal Plan Commercial [id number] Family Dependent [id number] MEDICARE [id number] SP [id number] [facility] FEDERAL EMPLOYEE PROGRAM [id number] MEDICARE C [id number] S [id number] [id number] BC BS [facility] B [id number] S [id number] [employer] PART B C [id number] S [id number] ANSI-Commercial [id number] ANSI-Medicare Part B [id number] ANSI-Medicare Part B [id number] ANSI-Commercial [id number] ANSI-Commercial [id number] ANSI-Medicare Part B [id number] ANSI-Commercial [id number] Problems, Conditions, and Diagnoses Code Display Name Description Problem Type Effective Dates Data Source(s) I10 Essential (primary) hypertension Essential (primary) h ypertension Diagnosis 02/07/2021 10:04:32 AM EDT [facility] F17.210 Nicotine dependence, cigarettes, uncompl icated Nicotine dependence, cigarettes, uncompl Diagnosis 02/07/2021 10:04:32 AM EDT [facility] E78.00 Pure hypercholesterolemia, unspecified P ure hypercholesterolemia, unspecified Diagnosis 02/07/2021 10:04:32 AM EDT [facility] 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 Diagnosis 02/07/2021 10:04:32 AM EDT [facility] E11.9 Type 2 diabetes mellitus without complic ations Type 2 diabetes mellitus without complic Diagnosis 08/01/2020 09:43:20 AM EST [facility] H25.11 [id number] Age-related nuclear cataract, right ey e Problem 02/13/2021 12:00:00 AM EDT eCW1 ([facility]) H25.12 [id number] Age-related nuclear cataract, left eye Problem 02/13/2021 12:00:00 AM EDT eCW1 ([facility]) H93.13 [id number] Tinnitus of both ears Problem 12/27/2020 12:00:00 AM EDT eCW1 ([facility]) H54.3 [id number] Decreased vision in both eyes Problem 12/13/2020 12:00:00 AM EDT eCW1 ([facility]) H91.93 [id number] Decreased hearing of both ears Problem 09/21/2020 12:00:00 AM EDT eCW1 ([facility]) N18.2 [id number] Stage 2 chronic kidney disease Problem 09/21/2020 12:00:00 AM EDT eCW1 ([facility]) K76.0 NAFLD - Nonalcoholic fatty liver disease Fatty liver disease, nonalcoholic Problem 03/21/2020 12:00:00 AM EDT eCW1 (Critical access hospital) Surgeries/Procedures Procedure Description Date Indications Data Source(s) THERAPEUTIC PX 1/> AREAS EACH 15 MIN EXERCISES 12:00:00 AM EST [facility] ([facility]) MANUAL THERAPY TQS 1/> REGIONS EACH 15 MINUTES 12:00:00 AM EST [facility] ([facility]) THERAPEUTIC PX 1/> AREAS EACH 15 MIN EXERCISES 11/06/2 020 12:00:00 AM EST [facility] ([facility]) MANUAL THERAPY TQS 1/> REGIONS EACH 15 MINUTES 020 12:00:00 AM EST [facility] ([facility]) Physical Therapy Eval - Low Complexity 03/29/2020 12:0 0:00 AM EST [facility] ([facility]) Results ID Date Data Source [id number] 08/22/2020 08:49:00 AM EDT [facility] Name Value Range Interpretation Code Description Data Anastasia rce(s) Supporting Document(s) SARS COVID ANTIGEN NEGATIVE [facility] This lab was ordered by JOHANA jones nd reported by [facility]. ID Date Data Source URINE CULTURE 08/22/2020 12:00:00 AM EDT eCW1 (Critical access hospital) Name Value Range Interpretation Code Description Data Anastasia rce(s) Supporting Document(s) Laboratory studies (set) URINE CULTU RE eCW1 ([facility]) ID Date Data Source CBC with Auto Differential 08/22/2020 12:00:00 AM EDT eCW1 ( [facility]) Name Value Range Interpretation Code Description Data Anastasia rce(s) Supporting Document(s) 4.92 4.30-6.10 RED BLOOD COUNT eCW1 ([facility]) 10.6 4.0-10.0 WHITE BLOOD COUNT eCW1 (Counts include 234 beds at the [facility]) 15.8 13.5-17.5 HEMOGLOBIN eCW1 ([facility]) 96.3 80.0-96.0 MEAN CORPUSCULAR VOLUME e CW1 ([facility]) 32.1 27.0-33.0 MEAN CORPUSCULAR HEMOGLOB IN eCW1 ([facility]) 47.4 42.0-52.0 HEMATOCRIT eCW1 ([facility]) 14.0 11.5-14.5 RED CELL DISTRIBUTION WID TH eCW1 ([facility]) 33.3 32.0-36.5 MEAN CORPUSCULAR HGB CONC eCW1 ([facility]) 196 150-450 PLATELET COUNT, AUTOMATED eCW1 ([facility]) 83.0 36.0-66.0 NEUTROPHILS % eCW1 ([facility]) 5.8 2.0-8.0 MONO % eCW1 ([facility]) 9.7 24.0-44.0 LYMPH % eCW1 ([facility]) 0.7 0.0-3.0 EOS % eCW1 ([facility]) 0.5 0.0-1.0 BASO % eCW1 ([facility]) 0.3 0-3.0 IMMATURE GRANULOCYTE % eCW1 ([facility]) 0.0 0-0 NUCLEATED RED BLOOD CELL % eCW 1 ([facility]) 8.8 1.5-8.5 NEUTROPHILS # eCW1 ([facility]) 1.0 1.5-5.0 LYMPH # eCW1 ([facility]) 0.1 0.0-0.2 BASO # eCW1 ([facility]) 0.6 0.0-0.8 MONO # eCW1 ([facility]) 0.1 0.0-0.5 EOS # eCW1 ([facility]) ID Date Data Source ASHLEY COVID AG (Point of Care) 08/22/2020 12:00:00 AM EDT eC W1 ([facility]) Name Value Range Interpretation Code Description Data Anastasia rce(s) Supporting Document(s) NEGATIVE NEGATIVE ASHLEY COVID ANTIGEN eCW1 ([facility]) ID Date Data Source LACTIC ACID LEVEL, LACTATE 08/22/2020 12:00:00 AM EDT eCW1 ( [facility]) Name Value Range Interpretation Code Description Data Anastasia rce(s) Supporting Document(s) LACTIC ACID LEVEL, LACTATE eCW 1 ([facility]) ID Date Data Source Comprehensive Metabolic Profile (CMP) 08/22/2020 12:00:00 AM EDT eCW1 ([facility]) Name Value Range Interpretation Code Description Data Anastasia rce(s) Supporting Document(s) 138 70-100 GLUCOSE, FASTING eCW1 (Critical access hospital) 13 7-18 BLOOD UREA NITROGEN eCW1 ([facility]) 1.21 0.70-1.30 CREATININE FOR GFR eCW1 ([facility]) 105 98-107 CHLORIDE LEVEL eCW1 ([facility]) > 60.0 >49 GLOMERULAR FILTRATION RATE eCW 1 ([facility]) 4.6 3.5-5.1 POTASSIUM SERUM eCW1 ([facility]) 139 136-145 SODIUM LEVEL eCW1 ([facility]) 29 21-32 CARBON DIOXIDE LEVEL eCW1 ([facility]) 17 7-37 AST/SGOT eCW1 ([facility]) 9.3 8.8-10.2 CALCIUM LEVEL eCW1 ([facility]) 82 45-117 ALKALINE PHOSPHATASE eCW1 ([facility]) 0.8 0.2-1.0 BILIRUBIN,TOTAL eCW1 ([facility]) 27 12-78 ALT/SGPT eCW1 ([facility]) 4.1 3.2-5.2 ALBUMIN eCW1 ([facility]) 6.8 6.4-8.2 TOTAL PROTEIN eCW1 ([facility]) 1.5 ALBUMIN/GLOBULIN RATIO eCW1 ([facility]) Procedure Social History Code Duration Value Status Description Data Source(s ) Smoking 02/13/2021 12:00:00 AM EDT Former Smoker completed Former Smoker eCW1 ([facility]) Smoking 02/13/2021 12:00:00 AM EDT Former Smoker completed Former Smoker eCW1 ([facility]) Smoking 11/09/2020 12:00:00 AM EDT Former Smoker completed Former Smoker eCW1 ([facility]) Smoking 11/09/2020 12:00:00 AM EDT Former Smoker completed Former Smoker eCW1 ([facility]) Smoking 11/09/2020 12:00:00 AM EDT Former Smoker completed Former Smoker eCW1 ([facility]) Smoking 09/21/2020 12:00:00 AM EDT Former Smoker completed Former Smoker eCW1 ([facility]) Smoking 09/21/2020 12:00:00 AM EDT Former Smoker completed Former Smoker eCW1 ([facility]) Smoking 08/22/2020 12:00:00 AM EDT Former Smoker completed Former Smoker eCW1 ([facility]) Smoking 08/22/2020 12:00:00 AM EDT Former Smoker completed Former Smoker eCW1 ([facility]) Smoking 08/22/2020 12:00:00 AM EDT Former Smoker completed Former Smoker eCW1 ([facility]) Alcohol intake 08/01/2020 12:00:00 AM EST Not Currently completed [facility] Smoking 08/01/2020 12:00:00 AM EST Former smoker completed Former smoker [facility] Smoking 03/21/2020 12:00:00 AM EDT Former Smoker completed Former Smoker eCW1 ([facility]) Smoking 03/21/2020 12:00:00 AM EDT Former Smoker completed Former Smoker eCW1 ([facility]) Smoking 03/21/2020 12:00:00 AM EDT Former Smoker completed Former Smoker eCW1 ([facility]) Vital Signs ID Date Data Source UNK Name Value Range Interpretation Code Description Data Source(s) Body weight 233 [lb_av] 233 [lb_av] eCW1 ([facility]) Body height 70 [in_i] 70 [in_i] eCW1 (Critical access hospital) Body mass index (BMI) [Ratio] 33.43 kg/m2 33.43 kg/m2 W1 ([facility]) Heart rate 66 /min 66 /min eCW1 ([facility]) Respiratory rate 18 /min 18 /min eCW1 ([facility]) Body temperature 97 [degF] 97 [degF] eCW1 ([facility]) Systolic blood pressure 132 mm[Hg] 132 mm[Hg] e CW1 ([facility]) Diastolic blood pressure 68 mm[Hg] 68 mm[Hg] eCW1 ([facility]) Body weight 241 [lb_av] 241 [lb_av] eCW1 ([facility]) Diastolic blood pressure 76 mm[Hg] 76 mm[Hg] eCW1 ([facility]) Body height 70 [in_i] 70 [in_i] eCW1 (Critical access hospital) Body mass index (BMI) [Ratio] 34.58 kg/m2 34.58 kg/m2 eCW1 ([facility]) Heart rate 50 /min 50 /min eCW1 ([facility]) Respiratory rate 18 /min 18 /min eCW1 ([facility]) Body temperature 96.5 [degF] 96.5 [degF] eCW1 ( [facility]) Systolic blood pressure 144 mm[Hg] 144 mm[Hg] e CW1 ([facility]) Body weight 245 [lb_av] 245 [lb_av] eCW1 ([facility]) Body height 70 [in_i] 70 [in_i] eCW1 (Critical access hospital) Body mass index (BMI) [Ratio] 35.15 kg/m2 35.15 kg/m2 eCW1 ([facility]) Heart rate 89 /min 89 /min eCW1 ([facility]) Respiratory rate 18 /min 18 /min eCW1 ([facility]) Body temperature 97.3 [degF] 97.3 [degF] eCW1 ( [facility]) Systolic blood pressure 140 mm[Hg] 140 mm[Hg] e CW1 ([facility]) Diastolic blood pressure 78 mm[Hg] 78 mm[Hg] eCW1 ([facility]) Body weight 250.8 [lb_av] 250.8 [lb_av] eCW1 ([facility]) Respiratory rate 18 /min 18 /min eCW1 ([facility]) Body height 70 [in_i] 70 [in_i] eCW1 (Critical access hospital) Body mass index (BMI) [Ratio] 35.98 kg/m2 35.98 kg/m2 eCW1 ([facility]) Heart rate 88 /min 88 /min eCW1 ([facility]) Body temperature 99 [degF] 99 [degF] eCW1 ([facility]) Systolic blood pressure 134 mm[Hg] 134 mm[Hg] e CW1 ([facility]) Diastolic blood pressure 70 mm[Hg] 70 mm[Hg] eCW1 ([facility]) Systolic blood pressure 146 mm[Hg] 146 mm[Hg] [facility] Diastolic blood pressure 80 mm[Hg] 80 mm[Hg] [facility] Heart rate 65 /min 65 /min [facility] Body height 177.8 cm 177.8 cm [facility] Body weight 114.306 kg 114.306 kg [facility] Body mass index (BMI) [Ratio] 36.16 kg/m2 36.16 kg/m2 [facility] Oxygen saturation in Arterial blood by Pulse oximetry 96 % 96 % [facility] Body temperature 96.9 [degF] 96.9 [degF] [facility] ([facility]) Body temperature 98.3 [degF] 98.3 [degF] [facility] ([facility]) Body weight 252 [lb_av] 252 [lb_av] eCW1 ([facility]) Body height 70 [in_i] 70 [in_i] eCW1 (Critical access hospital) Body mass index (BMI) [Ratio] 36.15 kg/m2 36.15 kg/m2 eCW1 ([facility]) Heart rate 71 /min 71 /min eCW1 ([facility]) Respiratory rate 18 /min 18 /min eCW1 ([facility]) Body temperature 97.2 [degF] 97.2 [degF] eCW1 ( [facility]) Systolic blood pressure 144 mm[Hg] 144 mm[Hg] e CW1 ([facility]) Diastolic blood pressure 78 mm[Hg] 78 mm[Hg] eCW1 ([facility]) Patient Treatment Plan of Care Planned Activity Planned Date Details Description Data Source (s) Ciprofloxacin 500 MG Oral Tablet [Cipro] 08/22/2020 12:00:00 AM EDT eCW1 ([facility]) Ciprofloxacin 500 MG Oral Tablet [Cipro] 08/22/2020 12:00:00 AM EDT eCW1 ([facility]) Ciprofloxacin 500 MG Oral Tablet [Cipro] 08/22/2020 12:00:00 AM EDT eCW1 ([facility]) VELTASSA 8.4 g PACK 06/09/2020 12:00:00 AM EST [facility] Lisinopril 10 MG Oral Tablet 06/06/2020 12:00:00 AM EST [facility] Lisinopril 10 MG Oral Tablet 03/25/2020 12:00:00 AM EDT eCW1 ([facility]) Chlorthalidone 25 MG Oral Tablet 10/09/2018 12:00:00 AM EDT [facility] Glipizide 5 MG Oral Tablet 10/09/2018 12:00:00 AM EDT [facility] ezetimibe 10 MG Oral Tablet 01/06/2018 12:00:00 AM EDT [facility] Losartan Potassium 100 MG Oral Tablet 01/06/2018 12:00:00 AM EDT [facility]
[2021-03-20] MEDS: TETRACAINE 0.5% OPHTH SOLN 4ML OS SCH ×2 (08:23→08:31)
[2021-03-20] MEDS ORDERED: MIDAZOLAM INJ 2MG/2ML VIAL (J2250 PER 1MG) As Ordered ONE (08:28)
[2021-03-20] MEDS ORDERED: fentaNYL 100 MCG/2 ML INJECTION (J3010) As Ordered ONE ×2 (08:28→10:25)
[2021-03-20] MEDS: CYCLOPENTOLATE 1% OPHTH SOLN 2 ML BTL OS SCH ×3 (08:32→08:48)
[2021-03-20] MEDS: FLURBIPROFEN 0.03% OPHTH SOLN 2.5 ML OS SCH ×3 (08:32→08:48)
[2021-03-20] MEDS: PHENYLEPHRINE 2.5% OPHTH SOL 2ML OS SCH ×3 (08:32→08:48)
[2021-03-20 11:00] VITALS: BP 147/70
--- NOTE | 2021-03-24 09:26 | RO ---
DATE OF SURGERY: 03/20/2021 PREOPERATIVE DIAGNOSIS: Senile cataract left eye. POSTOPERATIVE DIAGNOSIS: Senile cataract left eye. PROCEDURE: Phacoemulsification with posterior chamber intraocular lens implant left eye. SURGEON: Sami Licona Jr., DO VESSEL BUILDER: ANESTHESIA: IV sedation. DESCRIPTION OF PROCEDURE: The patient was brought into the operating room and given monitored anesthesia by the department of anesthesia by IV route. The patient was then given a standard prep by using betadine solution. One drop of tetracaine was placed in the eye prior to the prep. The patient was then draped in the usual manner. Lid speculum was placed in the eye. The eye was grasped with 0.12 forceps for better exposure of the cornea. A 15-degree stab blade was made at 4-oclock position. 0.3 mL of 1% lidocaine in a syringe attached to a cannula was inserted into the anterior chamber through the port site. Viscoelastic was inserted into the anterior chamber through the port site. A 2.75 mm clear cornea keratome blade was then used to make a clear corneal wound at 3-oclock position. A cystotome was used to start a continuous tear capsulorrhexis, which was completed with Utrata forceps. Balanced salt solution (BSS) in a syringe attached to a cannula was then used to hydrodissect the lens nucleus. Phacoemulsification was then used to remove the lens nucleus using a divide and conquer-type technique. After this was completed, irrigation and aspiration apparatus was brought into the anterior chamber and the remaining cortical material was removed. ProVisc was inserted into the capsular bag. We then inserted a foldable lens, an Bernardo AcrySof one-piece lens. It was then dialed into place using a Oscar pusher. Once the lens was in place, irrigation and aspiration was reinserted into the anterior chamber and the remaining ProVisc was removed. BSS was inserted through the port site, and then the port site was hydrated. The wound was checked. There was no need for sutures at this time. The patient then had the lid speculum removed. The shield was placed over the eye, and the patient was brought back to ambulatory surgery in stable condition. The patient tolerated the procedure well. Phacoemulsification time was 10.39 seconds. Besivance drops were placed in the eye in ambulatory surgery. LINK
== END 2021-03-20 11:20 | disposition home or self-care (01) ==
LOC: M SDC 07:39
PROVIDERS: ATTEND Ophthalmology
DX: H25.12 Age-related nuclear cataract, left eye (principal); I11.9 Hypertensive heart disease without heart failure; E11.22 Type 2 diabetes mellitus with diabetic chronic kidney disease; I25.2 Old myocardial infarction; E78.5 Hyperlipidemia, unspecified; N18.9 Chronic kidney disease, unspecified; Z95.5 Presence of coronary angioplasty implant and graft; M10.9 Gout, unspecified; K21.9 Gastro-esophageal reflux disease without esophagitis; Z85.038 Personal history of other malignant neoplasm of large intestine; M19.90 Unspecified osteoarthritis, unspecified site; G47.30 Sleep apnea, unspecified; Z87.09 Personal history of other diseases of the respiratory system; Z86.711 Personal history of pulmonary embolism; N40.1 Benign prostatic hyperplasia with lower urinary tract symptoms; Z87.891 Personal history of nicotine dependence; Z88.8 Allergy status to other drugs, medicaments and biological substances; Z79.899 Other long term (current) drug therapy; Z79.01 Long term (current) use of anticoagulants; Z79.82 Long term (current) use of aspirin; Z79.84 Long term (current) use of oral hypoglycemic drugs
CPT/HCPCS: 66984; J2250; J3010; V2632

== ENCOUNTER → 2021-03-23 | Outpatient (CLI) | payer MEDICARE, BC ==
[~2021-03-23] MED LIST changes: -DUOVISC (0.50ML VISCOAT/0.85ML PROVISC) OPHTH KIT As Ordered ONE; -LIDOCAINE 1% SDV 5ML VIAL As Ordered ONE; -LR 1,000 ML IV SCH
[2021-03-23 11:02] LABS: HEMOGLOBIN A1c 5.4 %
[2021-03-23 11:18] LABS: ALBUMIN 4.1 GM/DL (3.2-5.2); BILIRUBIN,TOTAL 0.7 MG/DL (0.2-1.0); CALCIUM LEVEL 9.7 MG/DL (8.8-10.2); CHOLESTEROL RISK RATIO 4.961 (<5); CREATININE FOR GFR 1.36 MG/DL (0.70-1.30); GLOMERULAR FILTRATION RATE 55.6 (>49); TOTAL PROTEIN 6.9 GM/DL (6.4-8.2)
== END ==
LOC: M PLALAB 08:16
PROVIDERS: ATTEND Family Medicine
DX: E78.2 Mixed hyperlipidemia (principal); E11.65 Type 2 diabetes mellitus with hyperglycemia
CPT/HCPCS: 36415; 80053; 80061; 83036; G0463

== ENCOUNTER → 2021-04-07 | Outpatient (REF) | payer MEDICARE, BC | LOC: M LAB REF 12:45 | PROVIDERS: ATTEND Internal Medicine Nephrology | DX: E11.22 Type 2 diabetes mellitus with diabetic chronic kidney disease (principal); E83.42 Hypomagnesemia; R80.9 Proteinuria, unspecified; N18.2 Chronic kidney disease, stage 2 (mild) ==

== ENCOUNTER → 2021-05-03 | Outpatient (REF) | payer MEDICARE, BC ==
[~2021-05-03] MED LIST changes: +LOSA100T45 PO; -LOSA100T50 PO; -OMEP-221 PO; +OMEP40CA5 PO
[2021-05-03 17:45] LABS: APPEARANCE, URINE CLOUDY (CLEAR); BACTERIA, URINE AUTO NEGATIVE (NEGATIVE); BILIRUBIN, URINE AUTO NEGATIVE (NEGATIVE); BLOOD, URINE BLOOD 2+ (NEGATIVE); COLOR, URINE YELLOW (YELLOW); GLUCOSE, URINE (UA) AUTO NEGATIVE (NEGATIVE); KETONE, URINE AUTO NEGATIVE (NEGATIVE); LEUKOCYTE ESTERASE, URINE AUTO 3+ (NEGATIVE); MUCUS, URINE SMALL (NEGATIVE); NITRITE, URINE AUTO NEGATIVE (NEGATIVE); PROTEIN, URINE AUTO 2+ mg/dL (NEGATIVE); RBC, URINE AUTO 66 /HPF (0-3); SPECIFIC GRAVITY URINE AUTO 1.015 (1.002-1.035); SQUAMOUS EPITHELIAL CELL UR AU 1 /HPF (0-6); TRANSITIONAL EPITHELIAL AUTO 2 /HPF; UROBILINOGEN, URINE AUTO 0.2 mg/dL (0.0-2.0); WBC, URINE AUTO TNTC /HPF (0-3)
== END ==
LOC: M SMT 16:54
PROVIDERS: ATTEND Nurse Practitioner Women's Health
DX: R31.0 Gross hematuria (principal)

== ENCOUNTER → 2021-06-09 | Outpatient (REF) | payer MEDICARE, BC ==
[2021-06-09 19:42] LABS: APPEARANCE, URINE HAZY (CLEAR); BACTERIA, URINE AUTO NEGATIVE (NEGATIVE); BILIRUBIN, URINE AUTO NEGATIVE (NEGATIVE); BLOOD, URINE BLOOD 2+ (NEGATIVE); COLOR, URINE YELLOW (YELLOW); GLUCOSE, URINE (UA) AUTO 1+ mg/dL (NEGATIVE); KETONE, URINE AUTO NEGATIVE (NEGATIVE); LEUKOCYTE ESTERASE, URINE AUTO 1+ (NEGATIVE); MUCUS, URINE SMALL (NEGATIVE); NITRITE, URINE AUTO NEGATIVE (NEGATIVE); PROTEIN, URINE AUTO 2+ mg/dL (NEGATIVE); RBC, URINE AUTO 98 /HPF (0-3); SPECIFIC GRAVITY URINE AUTO 1.015 (1.002-1.035); SQUAMOUS EPITHELIAL CELL UR AU 0 /HPF (0-6); UROBILINOGEN, URINE AUTO 0.2 mg/dL (0.0-2.0); WBC, URINE AUTO 46 /HPF (0-3)
== END ==
LOC: M SMT 17:07
PROVIDERS: ATTEND Nurse Practitioner Women's Health
DX: R31.0 Gross hematuria (principal)

== ENCOUNTER → 2021-07-03 | Outpatient (CLI) | payer MEDICARE, BC ==
[2021-07-03 18:10] LABS: CALCIUM LEVEL 9.4 MG/DL (8.8-10.2); CREATININE FOR GFR 1.28 MG/DL (0.70-1.30); GLOMERULAR FILTRATION RATE 59.7 (>49); POTASSIUM SERUM 4.5 MEQ/L (3.5-5.1)
== END ==
LOC: M PLALAB 14:17
PROVIDERS: ATTEND Nurse Practitioner Women's Health
DX: R31.0 Gross hematuria (principal)

== ENCOUNTER → 2021-07-14 | Outpatient (CLI) | payer MEDICARE, BC ==
[~2021-07-14] MED LIST changes: +ISOVUE-370 76% 100ML VIAL As Ordered ONE
== END ==
LOC: M RAD 09:54
PROVIDERS: ATTEND Nurse Practitioner Women's Health
DX: R31.0 Gross hematuria (principal)
CPT/HCPCS: 74178; Q9967

== ENCOUNTER 2021-07-23 11:11 | Emergency (ER) | payer MEDICARE, BC ==
[~2021-07-23] VITALS: Ht 177.8 cm; Wt 112.8 kg
[~2021-07-23 11:11] MED LIST changes: -ISOVUE-370 76% 100ML VIAL As Ordered ONE
[2021-07-23 12:36] LABS: GLUCOSE, URINE (UA) MANUAL NEGATIVE (NEGATIVE); KETONE, URINE MANUAL OBSCURED mg/dL (NEGATIVE); UROBILINOGEN, URINE MANUAL OBSCURED mg/dl (NORMAL)
[2021-07-23 12:37] LABS: BILIRUBIN, URINE MANUAL OBSCURED (NEGATIVE)
[2021-07-23] MEDS ORDERED: LIDOCAINE 2% 5ML JELLY UROJET TOP ONE (12:45)
[2021-07-23 12:53] LABS: BACTERIA, URINE MOD AMOUNT; HYALINE CAST, URINE NONE SEEN /lpf (0-1); RBC, URINE TNTC /hpf (0-3); SQUAMOUS EPITHELIAL CELL URINE SMALL AMOUNT /hpf (SMALL AMT)
[2021-07-23 13:19] VITALS: BP 158/77
== END 2021-07-23 13:21 | disposition home or self-care (01) ==
LOC: M ED 11:11
DX: R31.9 Hematuria, unspecified (principal); I10 Essential (primary) hypertension; I25.2 Old myocardial infarction; Z87.448 Personal history of other diseases of urinary system; Z79.899 Other long term (current) drug therapy; Z79.82 Long term (current) use of aspirin; Z79.84 Long term (current) use of oral hypoglycemic drugs; Z88.8 Allergy status to other drugs, medicaments and biological substances

== ENCOUNTER 2021-07-25 15:45 | Emergency (ER) | payer MEDICARE, BC ==
[~2021-07-25] VITALS: Ht 177.8 cm; Wt 112.0 kg
[~2021-07-25 15:45] MED LIST changes: -CEFD300C PO; -METF500T13; +METF500T13 PO
[2021-07-25] MEDS ORDERED: ACETAMINOPHEN 325 MG TAB PO ONE (16:15)
[2021-07-25 16:23] LABS: BASO % 0.2 % (0.0-1.0); EOS % 0.2 % (0.0-3.0); HEMATOCRIT 47.2 % (42.0-52.0); HEMOGLOBIN 16.3 g/dl (13.5-17.5); LYMPH # 1.1 10^3/uL (1.5-5.0); LYMPH % 8.3 % (24.0-44.0); MEAN CORPUSCULAR HEMOGLOBIN 31.9 pg (27.0-33.0); MEAN CORPUSCULAR HGB CONC 34.5 g/dl (32.0-36.5); MEAN CORPUSCULAR VOLUME 92.4 fl (80.0-96.0); MONO # 0.8 10^3/uL (0.0-0.8); MONO % 6.3 % (2.0-8.0); NEUTROPHILS # 11.3 10^3/uL (1.5-8.5); NEUTROPHILS % 84.5 % (36.0-66.0); PLATELET COUNT, AUTOMATED 267 10^3/uL (150-450); RED BLOOD COUNT 5.11 10^6/uL (4.30-6.10); WHITE BLOOD COUNT 13.3 10^3/uL (4.0-10.0)
[2021-07-25 16:27] LABS: VENOUS BASE EXCESS -0.2 (-2.0-2.0); VENOUS HCO3 25.1 MEQ/L (23.0-27.0); VENOUS O2 SATURATION 64.9 % (60.0-80.0); VENOUS PARTIAL PRESSURE CO2 43.2 mmHg (38.0-50.0); VENOUS PARTIAL PRESSURE O2 30.3 mmHg (30.0-50.0); VENOUS PH 7.382 UNITS (7.330-7.430); VENOUS STANDARD HCO3 23.4 MEQ/L; VENOUS TOTAL CO2 26.4 MEQ/L (24.0-28.0)
[2021-07-25 16:49] LABS: CALCIUM LEVEL 9.4 MG/DL (8.8-10.2); CREATININE FOR GFR 1.5 MG/DL (0.70-1.30); GLOMERULAR FILTRATION RATE 49.7 (>49); POTASSIUM SERUM 4.6 MEQ/L (3.5-5.1)
[2021-07-25] MEDS ORDERED: cefTRIAXone SOD 2 GM in D5W MINI-BAG PLUS 50 ML IV ONE (18:20)
[2021-07-25 18:46] VITALS: BP 155/79
[2021-07-25] MEDS ORDERED: CEFD300C PO (18:54)
[2021-08-07] MEDS ORDERED: CVS10CAP7 PO (13:17)
== END 2021-07-25 19:12 | disposition home or self-care (01) ==
LOC: EDBD 15:45 → M ED 15:45
DX: N39.0 Urinary tract infection, site not specified (principal); I10 Essential (primary) hypertension; E78.5 Hyperlipidemia, unspecified; I25.2 Old myocardial infarction; K21.9 Gastro-esophageal reflux disease without esophagitis; N40.0 Benign prostatic hyperplasia without lower urinary tract symptoms; R50.9 Fever, unspecified; Z79.899 Other long term (current) drug therapy; Z79.84 Long term (current) use of oral hypoglycemic drugs; Z79.82 Long term (current) use of aspirin; Z88.8 Allergy status to other drugs, medicaments and biological substances; Z87.891 Personal history of nicotine dependence
CPT/HCPCS: 80048; 81001; 82803; 83605; 85025; 87040; 87088; 87186; 87426; 93005; 96360; 99284; G0463; J0696; U0003

== ENCOUNTER → 2021-07-25 | Outpatient (REF) | payer MEDICARE, BC ==
[~2021-07-25] MED LIST changes: +CEFD300C PO
== END ==
LOC: M SFHCPLAZ 15:30
PROVIDERS: ATTEND Family Medicine
DX: R50.9 Fever, unspecified (principal)

== ENCOUNTER → 2021-08-30 | Outpatient (CLI) | payer MEDICARE, BC ==
[~2021-08-30] MED LIST changes: +CEFD300C PO; +CVS10CAP7 PO
[2021-08-30 13:48] LABS: CALCIUM LEVEL 9.9 MG/DL (8.8-10.2); CREATININE FOR GFR 1.43 MG/DL (0.70-1.30); GLOMERULAR FILTRATION RATE 52.5 (>49); POTASSIUM SERUM 5.2 MEQ/L (3.5-5.1)
== END ==
LOC: M PLALAB 11:29
PROVIDERS: ATTEND Family Medicine
DX: E87.5 Hyperkalemia (principal)

== ENCOUNTER → 2021-10-06 | Outpatient (REF) | payer MEDICARE, BC ==
[2021-10-06 15:45] LABS: INR 1.13; PROTHROMBIN TIME 14.9 SECONDS (12.7-14.5)
== END ==
LOC: M LAB REF 15:19
PROVIDERS: ATTEND Internal Medicine
DX: Z01.818 Encounter for other preprocedural examination (principal)

== ENCOUNTER → 2021-10-10 | Outpatient (REF) | payer MEDICARE, BC ==
[2021-10-10 14:08] LABS: APPEARANCE, URINE CLOUDY (CLEAR); BACTERIA, URINE AUTO 1+ (NEGATIVE); BILIRUBIN, URINE AUTO NEGATIVE (NEGATIVE); BLOOD, URINE BLOOD 2+ (NEGATIVE); COLOR, URINE YELLOW (YELLOW); GLUCOSE, URINE (UA) AUTO NEGATIVE (NEGATIVE); KETONE, URINE AUTO NEGATIVE (NEGATIVE); LEUKOCYTE ESTERASE, URINE AUTO 3+ (NEGATIVE); MUCUS, URINE SMALL (NEGATIVE); NITRITE, URINE AUTO NEGATIVE (NEGATIVE); PROTEIN, URINE AUTO 2+ mg/dL (NEGATIVE); RBC, URINE AUTO 15 /HPF (0-3); SQUAMOUS EPITHELIAL CELL UR AU 0 /HPF (0-6); UROBILINOGEN, URINE AUTO 0.2 mg/dL (0.0-2.0); WBC, URINE AUTO 89 /HPF (0-3)
== END ==
LOC: M LAB REF 12:48
PROVIDERS: ATTEND Internal Medicine
DX: Z01.818 Encounter for other preprocedural examination (principal); Z79.899 Other long term (current) drug therapy

== ENCOUNTER 2021-10-24 13:12 | Inpatient (IN) | payer MEDICARE, BC ==
[~2021-10-24] VITALS: Ht 177.8 cm; Wt 95.4 kg
[2021-10-24 17:24] LABS: BASO % 0.2 % (0.0-1.0); HEMATOCRIT 35.5 % (42.0-52.0); HEMOGLOBIN 11.1 g/dl (13.5-17.5); LYMPH % 8.9 % (24.0-44.0); MEAN CORPUSCULAR HEMOGLOBIN 27.3 pg (27.0-33.0); MEAN CORPUSCULAR HGB CONC 31.3 g/dl (32.0-36.5); MEAN CORPUSCULAR VOLUME 87.2 fl (80.0-96.0); MONO # 1.2 10^3/uL (0.0-0.8); MONO % 5.5 % (2.0-8.0); NEUTROPHILS # 18.8 10^3/uL (1.5-8.5); NEUTROPHILS % 84.8 % (36.0-66.0); PLATELET COUNT, AUTOMATED 506 10^3/uL (150-450); RED BLOOD COUNT 4.07 10^6/uL (4.30-6.10); WHITE BLOOD COUNT 22.2 10^3/uL (4.0-10.0)
[2021-10-24 17:56] LABS: ALT/SGPT 37 U/L (12-78); BILIRUBIN,DIRECT 0.2 MG/DL (0.0-0.2); BILIRUBIN,TOTAL 0.5 MG/DL (0.2-1.0); BLOOD UREA NITROGEN 30 MG/DL (7-18); CALCIUM LEVEL 9.1 MG/DL (8.8-10.2); CARBON DIOXIDE LEVEL 21 MEQ/L (21-32); CHLORIDE LEVEL 103 MEQ/L (98-107); CREATININE FOR GFR 1.21 MG/DL (0.70-1.30); GLOMERULAR FILTRATION RATE > 60.0 (>49); GLUCOSE, FASTING 135 MG/DL (70-100); LIPASE 114 U/L (73-393); POTASSIUM SERUM 4.9 MEQ/L (3.5-5.1); SODIUM LEVEL 136 MEQ/L (136-145); TOTAL PROTEIN 6.4 GM/DL (6.4-8.2)
[2021-10-24 18:00] LABS: CK-MB VALUE MASS < 1.0 NG/ML (<3.6); CPK CREATINE PHOSPHOKINASE 115 U/L (39-308); MB/CK RELATIVE INDEX 0.87 (< OR =4)
[2021-10-24 18:11] LABS: RSV AMPLIFICATION NEGATIVE (NEGATIVE)
[2021-10-24] MEDS ORDERED: ISOVUE-370 76% 100ML VIAL As Ordered ONE (19:15)
[2021-10-24] MEDS ORDERED: cefTRIAXone SOD 2 GM in D5W MINI-BAG PLUS 50 ML IV ONE (19:15)
[2021-10-24] MEDS ORDERED: ONDANSETRON 4MG/2ML VIAL IV PRN (23:30)
[2021-10-24] MEDS ORDERED: NS 1,000 ML IV ONE (23:30)
[2021-10-24] MEDS ORDERED: MORPHINE 2 MG/ML 1ML VIAL IV PRN (23:30)
[2021-10-24] MEDS ORDERED: HOME MED LIST COMPLETE! XX SCH (23:40)
[2021-10-24] MEDS ORDERED: MAGN400T2 PO (23:40)
[2021-10-24] MEDS ORDERED: VELT1POW PO (23:40)
[2021-10-24] MEDS ORDERED: MELA10TA2 PO (23:40)
[2021-10-25] VITALS (9 sets, daily range): BP systolic 113–137; BP diastolic 67–73
[2021-10-25 01:46] LABS: HEMOGLOBIN 10.9 g/dl (13.5-17.5)
[2021-10-25] MEDS ORDERED: GLUCAGON INJ 1MG VIAL SC PRN (01:50)
[2021-10-25] MEDS ORDERED: DEXTROSE 50% 50 ML SYRINGE IV PRN (01:50)
[2021-10-25] MEDS ORDERED: GLUCOSE 4GM CHEW TABLET PO PRN (01:50)
[2021-10-25 02:21] LABS: CALCIUM LEVEL 8.6 MG/DL (8.8-10.2); CREATININE FOR GFR 1.28 MG/DL (0.70-1.30); GLOMERULAR FILTRATION RATE 59.5 (>49); POTASSIUM SERUM 5.1 MEQ/L (3.5-5.1)
[2021-10-25] MEDS ORDERED: RAMELTEON 8 MG TAB (ROZEREM) PO PRN (02:25)
[2021-10-25] MEDS: NS 1,000 ML IV SCH ×2 (02:38→08:48)
[2021-10-25] MEDS: allopurinoL 300 MG TAB PO SCH ×2 (02:46→20:57)
[2021-10-25] MEDS: ROSUVASTATIN 10 MG TAB (CRESTOR) PO SCH ×2 (02:50→20:57)
[2021-10-25] MEDS: GABAPENTIN 300 MG CAP PO SCH ×2 (02:50→20:57)
[2021-10-25] MEDS: INSULIN LISPRO (NovoLOG) PER UNIT SC SCH ×2 (06:00→13:11)
[2021-10-25 06:03] LABS: BASO % 0.1 % (0.0-1.0); HEMATOCRIT 33.6 % (42.0-52.0); HEMOGLOBIN 10.6 g/dl (13.5-17.5); LYMPH # 1.7 10^3/uL (1.5-5.0); LYMPH % 7.9 % (24.0-44.0); MEAN CORPUSCULAR HEMOGLOBIN 27.7 pg (27.0-33.0); MEAN CORPUSCULAR HGB CONC 31.5 g/dl (32.0-36.5); MONO # 1.3 10^3/uL (0.0-0.8); MONO % 6.1 % (2.0-8.0); NEUTROPHILS # 17.7 10^3/uL (1.5-8.5); NEUTROPHILS % 85.2 % (36.0-66.0); PLATELET COUNT, AUTOMATED 450 10^3/uL (150-450); RED BLOOD COUNT 3.82 10^6/uL (4.30-6.10); WHITE BLOOD COUNT 20.9 10^3/uL (4.0-10.0)
[2021-10-25 06:22] LABS: INR 1.21; PROTHROMBIN TIME 15.7 SECONDS (12.7-14.5)
[2021-10-25 06:23] LABS: PARTIAL THROMBOPLASTIN TIME 42.7 SECONDS (25.9-37.0)
[2021-10-25 06:27] LABS: ALBUMIN 1.8 GM/DL (3.2-5.2); ALT/SGPT 40 U/L (12-78); BILIRUBIN,TOTAL 0.3 MG/DL (0.2-1.0); BLOOD UREA NITROGEN 28 MG/DL (7-18); CALCIUM LEVEL 8.7 MG/DL (8.8-10.2); CARBON DIOXIDE LEVEL 22 MEQ/L (21-32); CHLORIDE LEVEL 103 MEQ/L (98-107); CREATININE FOR GFR 1.01 MG/DL (0.70-1.30); GLOMERULAR FILTRATION RATE > 60.0 (>49); GLUCOSE, FASTING 109 MG/DL (70-100); POTASSIUM SERUM 4.7 MEQ/L (3.5-5.1); SODIUM LEVEL 135 MEQ/L (136-145); TOTAL PROTEIN 5.9 GM/DL (6.4-8.2)
[2021-10-25] MEDS: cefTRIAXone SOD 1 GM in D5W MINI-BAG PLUS 50 ML IV SCH (08:46)
[2021-10-25] MEDS: LACTOBACILLUS ACIDOPHILUS CAP (BACID) PO SCH (08:47)
[2021-10-25] MEDS: OMEPRAZOLE 20MG CAP PO SCH (08:47)
[2021-10-25] MEDS: METOPROLOL SUCC (TopROL XL) 100MG *XL* TAB PO SCH (08:47)
[2021-10-25] MEDS: amLODIPine 5 MG TAB PO SCH ×2 (08:48→20:59)
[2021-10-25] MEDS: PATIROMER SORBITEX CALCIUM 8.4 GM POWDER PACKET (VELTASSA) PO SCH (08:48)
[2021-10-25] MEDS: DOCUSATE SODIUM 100MG CAPSULE PO SCH ×2 (08:48→20:57)
[2021-10-25] MEDS ORDERED: LIDOCAINE 1% MDV 20ML VIAL As Ordered ONE (11:38)
[2021-10-25] MEDS ORDERED: INSULIN LISPRO (NovoLOG) PER UNIT SC SCH ×2 (17:30→21:00)
[2021-10-25] MEDS: traMADol 50 MG TAB PO PRN (20:58)
[2021-10-26 06:00] VITALS: BP 129/66
[2021-10-26 06:24] LABS: BASO # 0.1 10^3/uL (0.0-0.2); BASO % 0.2 % (0.0-1.0); HEMATOCRIT 34.2 % (42.0-52.0); HEMOGLOBIN 10.5 g/dl (13.5-17.5); LYMPH # 1.6 10^3/uL (1.5-5.0); LYMPH % 6.3 % (24.0-44.0); MEAN CORPUSCULAR HEMOGLOBIN 26.9 pg (27.0-33.0); MEAN CORPUSCULAR HGB CONC 30.7 g/dl (32.0-36.5); MEAN CORPUSCULAR VOLUME 87.5 fl (80.0-96.0); MONO % 5.9 % (2.0-8.0); NEUTROPHILS # 22.1 10^3/uL (1.5-8.5); NEUTROPHILS % 86.7 % (36.0-66.0); PLATELET COUNT, AUTOMATED 445 10^3/uL (150-450); RED BLOOD COUNT 3.91 10^6/uL (4.30-6.10); WHITE BLOOD COUNT 25.5 10^3/uL (4.0-10.0)
[2021-10-26 07:23] LABS: ALBUMIN 1.7 GM/DL (3.2-5.2); ALT/SGPT 50 U/L (12-78); BILIRUBIN,TOTAL 0.6 MG/DL (0.2-1.0); BLOOD UREA NITROGEN 24 MG/DL (7-18); CALCIUM LEVEL 8.6 MG/DL (8.8-10.2); CARBON DIOXIDE LEVEL 22 MEQ/L (21-32); CHLORIDE LEVEL 102 MEQ/L (98-107); CREATININE FOR GFR 0.95 MG/DL (0.70-1.30); GLOMERULAR FILTRATION RATE > 60.0 (>49); GLUCOSE, FASTING 113 MG/DL (70-100); POTASSIUM SERUM 4.5 MEQ/L (3.5-5.1); SODIUM LEVEL 132 MEQ/L (136-145); TOTAL PROTEIN 6.7 GM/DL (6.4-8.2)
[2021-10-26 07:41] LABS: MONO # 1.5 10^3/uL (0.0-0.8)
[2021-10-26] MEDS: DOCUSATE SODIUM 100MG CAPSULE PO SCH ×2 (08:19→20:15)
[2021-10-26] MEDS: cefTRIAXone SOD 1 GM in D5W MINI-BAG PLUS 50 ML IV SCH (08:19)
[2021-10-26] MEDS: LACTOBACILLUS ACIDOPHILUS CAP (BACID) PO SCH (08:19)
[2021-10-26] MEDS: OMEPRAZOLE 20MG CAP PO SCH (08:20)
[2021-10-26] MEDS: traMADol 50 MG TAB PO PRN ×2 (08:21→18:35)
[2021-10-26] MEDS: METOPROLOL SUCC (TopROL XL) 100MG *XL* TAB PO SCH (08:22)
[2021-10-26 09:12] LABS: HEMOGLOBIN A1c 6.3 %
[2021-10-26 18:11] VITALS: BP 136/67
[2021-10-26] MEDS: ROSUVASTATIN 10 MG TAB (CRESTOR) PO SCH (20:15)
[2021-10-26] MEDS: allopurinoL 300 MG TAB PO SCH (20:16)
[2021-10-26] MEDS: GABAPENTIN 300 MG CAP PO SCH (20:16)
[2021-10-26 20:49] VITALS: BP 132/63
[2021-10-27 05:00] VITALS: BP 124/66
[2021-10-27] MEDS: traMADol 50 MG TAB PO PRN ×2 (05:42→17:19)
[2021-10-27 07:19] LABS: BASO % 0.2 % (0.0-1.0); EOS % 0.1 % (0.0-3.0); HEMATOCRIT 33.8 % (42.0-52.0); HEMOGLOBIN 10.4 g/dl (13.5-17.5); LYMPH # 1.5 10^3/uL (1.5-5.0); LYMPH % 7.7 % (24.0-44.0); MEAN CORPUSCULAR HEMOGLOBIN 26.8 pg (27.0-33.0); MEAN CORPUSCULAR HGB CONC 30.8 g/dl (32.0-36.5); MEAN CORPUSCULAR VOLUME 87.1 fl (80.0-96.0); MONO # 1.2 10^3/uL (0.0-0.8); MONO % 5.9 % (2.0-8.0); NEUTROPHILS # 16.9 10^3/uL (1.5-8.5); NEUTROPHILS % 85.3 % (36.0-66.0); PLATELET COUNT, AUTOMATED 413 10^3/uL (150-450); RED BLOOD COUNT 3.88 10^6/uL (4.30-6.10); WHITE BLOOD COUNT 19.7 10^3/uL (4.0-10.0)
[2021-10-27 07:48] LABS: ALBUMIN 1.7 GM/DL (3.2-5.2); ALT/SGPT 79 U/L (12-78); BILIRUBIN,TOTAL 0.4 MG/DL (0.2-1.0); BLOOD UREA NITROGEN 26 MG/DL (7-18); CALCIUM LEVEL 8.8 MG/DL (8.8-10.2); CARBON DIOXIDE LEVEL 22 MEQ/L (21-32); CHLORIDE LEVEL 102 MEQ/L (98-107); CREATININE FOR GFR 0.91 MG/DL (0.70-1.30); GLOMERULAR FILTRATION RATE > 60.0 (>49); GLUCOSE, FASTING 139 MG/DL (70-100); POTASSIUM SERUM 4.5 MEQ/L (3.5-5.1); SODIUM LEVEL 134 MEQ/L (136-145); TOTAL PROTEIN 5.8 GM/DL (6.4-8.2)
[2021-10-27] MEDS: DOCUSATE SODIUM 100MG CAPSULE PO SCH ×2 (09:27→20:12)
[2021-10-27] MEDS: LACTOBACILLUS ACIDOPHILUS CAP (BACID) PO SCH (09:27)
[2021-10-27] MEDS: OMEPRAZOLE 20MG CAP PO SCH (09:27)
[2021-10-27] MEDS: cefTRIAXone SOD 1 GM in D5W MINI-BAG PLUS 50 ML IV SCH (09:28)
[2021-10-27] MEDS: METOPROLOL SUCC (TopROL XL) 100MG *XL* TAB PO SCH (09:29)
[2021-10-27] MEDS: oxyCODONE 5MG TAB PO PRN (11:59)
[2021-10-27 14:00] VITALS: BP 116/57
[2021-10-27] MEDS: MIRALAX *UNIT DOSE* 17GM PACKET PO SCH (15:14)
[2021-10-27] MEDS ORDERED: MAGNESIUM CITRATE 300 ML BTL PO ONE (17:00)
[2021-10-27] MEDS ORDERED: POLYETHYLENE GLYCOL (MIRALAX) 238GM BOTTLE PO ONE (18:00)
[2021-10-27 20:00] VITALS: BP 120/58
[2021-10-27] MEDS ORDERED: PROCHLORPERAZINE 10MG/2ML VIAL (J0780 PER 1) IV ONE (20:05)
[2021-10-27] MEDS: allopurinoL 300 MG TAB PO SCH (20:12)
[2021-10-27] MEDS: GABAPENTIN 300 MG CAP PO SCH (20:12)
[2021-10-27] MEDS: SENOKOT S TAB PO SCH (20:12)
[2021-10-27] MEDS: ROSUVASTATIN 10 MG TAB (CRESTOR) PO SCH (20:13)
[2021-10-28] MEDS ORDERED: POLYETHYLENE GLYCOL (MIRALAX) 238GM BOTTLE PO ONE (04:00)
[2021-10-28 06:00] VITALS: BP 120/67
[2021-10-28 07:36] LABS: BASO % 0.1 % (0.0-1.0); EOS % 0.1 % (0.0-3.0); HEMATOCRIT 34.9 % (42.0-52.0); HEMOGLOBIN 10.9 g/dl (13.5-17.5); LYMPH # 1.6 10^3/uL (1.5-5.0); LYMPH % 7.3 % (24.0-44.0); MEAN CORPUSCULAR HGB CONC 31.2 g/dl (32.0-36.5); MEAN CORPUSCULAR VOLUME 86.6 fl (80.0-96.0); MONO # 1.3 10^3/uL (0.0-0.8); MONO % 5.7 % (2.0-8.0); NEUTROPHILS # 19.4 10^3/uL (1.5-8.5); NEUTROPHILS % 86.1 % (36.0-66.0); PLATELET COUNT, AUTOMATED 474 10^3/uL (150-450); RED BLOOD COUNT 4.03 10^6/uL (4.30-6.10); WHITE BLOOD COUNT 22.5 10^3/uL (4.0-10.0)
[2021-10-28 07:55] LABS: BLOOD UREA NITROGEN 28 MG/DL (7-18); CALCIUM LEVEL 8.6 MG/DL (8.8-10.2); CARBON DIOXIDE LEVEL 23 MEQ/L (21-32); CHLORIDE LEVEL 102 MEQ/L (98-107); CREATININE FOR GFR 1.03 MG/DL (0.70-1.30); GLOMERULAR FILTRATION RATE > 60.0 (>49); GLUCOSE, FASTING 122 MG/DL (70-100); POTASSIUM SERUM 4.4 MEQ/L (3.5-5.1); SODIUM LEVEL 132 MEQ/L (136-145)
[2021-10-28] MEDS: LACTOBACILLUS ACIDOPHILUS CAP (BACID) PO SCH (09:00)
[2021-10-28] MEDS: SENOKOT S TAB PO SCH ×2 (09:00→20:12)
[2021-10-28] MEDS: DOCUSATE SODIUM 100MG CAPSULE PO SCH ×2 (09:00→20:12)
[2021-10-28] MEDS: MIRALAX *UNIT DOSE* 17GM PACKET PO SCH (09:00)
[2021-10-28] MEDS: OMEPRAZOLE 20MG CAP PO SCH (09:00)
[2021-10-28] MEDS: traMADol 50 MG TAB PO PRN (09:53)
[2021-10-28] MEDS: METOPROLOL SUCC (TopROL XL) 100MG *XL* TAB PO SCH (09:54)
[2021-10-28] MEDS ORDERED: MOM 30ML SUSPENSION UDC PO ONE ×2 (10:15→15:00)
[2021-10-28] MEDS: LACTULOSE 20 GM/30 ML SYRUP UD PO SCH ×3 (13:15→20:13)
[2021-10-28 14:00] VITALS: BP 118/68
[2021-10-28] MEDS: GABAPENTIN 300 MG CAP PO SCH (20:12)
[2021-10-28] MEDS: allopurinoL 300 MG TAB PO SCH (20:13)
[2021-10-28] MEDS: ROSUVASTATIN 10 MG TAB (CRESTOR) PO SCH (20:13)
[2021-10-28 22:00] VITALS: BP 114/68
[2021-10-29] VITALS (10 sets, daily range): BP systolic 88–129; BP diastolic 46–76
[2021-10-29] MEDS: oxyCODONE 5MG TAB PO PRN (05:44)
[2021-10-29 06:16] LABS: BASO % 0.2 % (0.0-1.0); HEMATOCRIT 34.5 % (42.0-52.0); HEMOGLOBIN 10.9 g/dl (13.5-17.5); LYMPH # 1.9 10^3/uL (1.5-5.0); LYMPH % 8.8 % (24.0-44.0); MEAN CORPUSCULAR HEMOGLOBIN 27.4 pg (27.0-33.0); MEAN CORPUSCULAR HGB CONC 31.6 g/dl (32.0-36.5); MEAN CORPUSCULAR VOLUME 86.7 fl (80.0-96.0); MONO # 1.2 10^3/uL (0.0-0.8); MONO % 5.6 % (2.0-8.0); NEUTROPHILS # 18.6 10^3/uL (1.5-8.5); NEUTROPHILS % 84.5 % (36.0-66.0); PLATELET COUNT, AUTOMATED 492 10^3/uL (150-450); RED BLOOD COUNT 3.98 10^6/uL (4.30-6.10)
[2021-10-29 06:35] LABS: BLOOD UREA NITROGEN 29 MG/DL (7-18); CALCIUM LEVEL 8.9 MG/DL (8.8-10.2); CARBON DIOXIDE LEVEL 23 MEQ/L (21-32); CHLORIDE LEVEL 105 MEQ/L (98-107); CREATININE FOR GFR 1.17 MG/DL (0.70-1.30); GLOMERULAR FILTRATION RATE > 60.0 (>49); GLUCOSE, FASTING 153 MG/DL (70-100); POTASSIUM SERUM 4.1 MEQ/L (3.5-5.1); SODIUM LEVEL 138 MEQ/L (136-145)
[2021-10-29] MEDS ORDERED: LIDOCAINE 2% 100MG/5ML SDV (FOR ANES.) As Ordered ONE (07:05)
[2021-10-29] MEDS ORDERED: propofoL 200 MG/20 ML VIAL As Ordered ONE (07:05)
[2021-10-29] MEDS: LACTULOSE 20 GM/30 ML SYRUP UD PO SCH ×4 (09:00→21:21)
[2021-10-29] MEDS: PATIROMER SORBITEX CALCIUM 8.4 GM POWDER PACKET (VELTASSA) PO SCH (09:00)
[2021-10-29] MEDS: METOPROLOL SUCC (TopROL XL) 100MG *XL* TAB PO SCH (09:00)
[2021-10-29] MEDS ORDERED: METOPROLOL SUCC (TopROL XL) 100MG *XL* TAB PO SCH (09:00)
[2021-10-29] MEDS ORDERED: MAGNESIUM CITRATE 300 ML BTL PO ONE (09:05)
[2021-10-29] MEDS: SENOKOT S TAB PO SCH ×2 (10:23→21:22)
[2021-10-29] MEDS: DOCUSATE SODIUM 100MG CAPSULE PO SCH (10:23)
[2021-10-29] MEDS: OMEPRAZOLE 20MG CAP PO SCH (10:23)
[2021-10-29] MEDS: LACTOBACILLUS ACIDOPHILUS CAP (BACID) PO SCH (10:23)
[2021-10-29] MEDS ORDERED: NS 1,000 ML IV ONE (10:45)
[2021-10-29] MEDS ORDERED: fentaNYL 100 MCG/2 ML INJECTION As Ordered ONE (18:18)
[2021-10-29] MEDS ORDERED: ONDANSETRON 4MG/2ML VIAL IV PRN (19:30)
[2021-10-29] MEDS ORDERED: LR 1,000 ML IV SCH (19:30)
[2021-10-29] MEDS: GABAPENTIN 300 MG CAP PO SCH (21:21)
[2021-10-29] MEDS: allopurinoL 300 MG TAB PO SCH (21:21)
[2021-10-29] MEDS: ROSUVASTATIN 10 MG TAB (CRESTOR) PO SCH (21:22)
[2021-10-30] VITALS: BP 122/68
[2021-10-30 01:00] VITALS: BP 120/68
[2021-10-30 06:00] VITALS: BP 116/68
[2021-10-30 07:10] LABS: BASO % 0.1 % (0.0-1.0); HEMATOCRIT 33.6 % (42.0-52.0); HEMOGLOBIN 10.3 g/dl (13.5-17.5); LYMPH # 1.8 10^3/uL (1.5-5.0); LYMPH % 8.2 % (24.0-44.0); MEAN CORPUSCULAR HEMOGLOBIN 26.8 pg (27.0-33.0); MEAN CORPUSCULAR HGB CONC 30.7 g/dl (32.0-36.5); MEAN CORPUSCULAR VOLUME 87.5 fl (80.0-96.0); MONO # 1.3 10^3/uL (0.0-0.8); MONO % 6.1 % (2.0-8.0); NEUTROPHILS % 84.9 % (36.0-66.0); PLATELET COUNT, AUTOMATED 472 10^3/uL (150-450); RED BLOOD COUNT 3.84 10^6/uL (4.30-6.10); WHITE BLOOD COUNT 21.2 10^3/uL (4.0-10.0)
[2021-10-30 07:19] LABS: BLOOD UREA NITROGEN 23 MG/DL (7-18); CALCIUM LEVEL 8.5 MG/DL (8.8-10.2); CARBON DIOXIDE LEVEL 21 MEQ/L (21-32); CHLORIDE LEVEL 105 MEQ/L (98-107); CREATININE FOR GFR 1.01 MG/DL (0.70-1.30); GLOMERULAR FILTRATION RATE > 60.0 (>49); GLUCOSE, FASTING 109 MG/DL (70-100); POTASSIUM SERUM 4.3 MEQ/L (3.5-5.1); SODIUM LEVEL 138 MEQ/L (136-145)
[2021-10-30] MEDS: SENOKOT S TAB PO SCH ×2 (08:24→20:54)
[2021-10-30] MEDS: OMEPRAZOLE 20MG CAP PO SCH (08:24)
[2021-10-30] MEDS: LACTULOSE 20 GM/30 ML SYRUP UD PO SCH ×2 (08:24→20:56)
[2021-10-30] MEDS: LACTOBACILLUS ACIDOPHILUS CAP (BACID) PO SCH (08:24)
[2021-10-30] MEDS: METOPROLOL SUCC (TopROL XL) 50MG **XL** TAB PO SCH (08:24)
[2021-10-30] MEDS: traMADol 50 MG TAB PO PRN ×2 (08:30→18:03)
[2021-10-30 10:00] VITALS: BP 117/67
[2021-10-30] MEDS ORDERED: ISOVUE-370 76% 100ML VIAL As Ordered ONE (10:58)
[2021-10-30 14:00] VITALS: BP 114/64
[2021-10-30] MEDS: ROSUVASTATIN 10 MG TAB (CRESTOR) PO SCH (21:04)
[2021-10-30] MEDS: GABAPENTIN 300 MG CAP PO SCH (21:05)
[2021-10-30] MEDS: allopurinoL 300 MG TAB PO SCH (21:05)
[2021-10-30 22:00] VITALS: BP 116/80
[2021-10-31 06:00] VITALS: BP 119/77
[2021-10-31 06:16] LABS: BASO % 0.2 % (0.0-1.0); HEMATOCRIT 33.3 % (42.0-52.0); HEMOGLOBIN 10.4 g/dl (13.5-17.5); LYMPH # 1.5 10^3/uL (1.5-5.0); LYMPH % 6.3 % (24.0-44.0); MEAN CORPUSCULAR HEMOGLOBIN 27.2 pg (27.0-33.0); MEAN CORPUSCULAR HGB CONC 31.2 g/dl (32.0-36.5); MEAN CORPUSCULAR VOLUME 86.9 fl (80.0-96.0); MONO # 1.5 10^3/uL (0.0-0.8); MONO % 6.1 % (2.0-8.0); NEUTROPHILS # 20.6 10^3/uL (1.5-8.5); NEUTROPHILS % 86.6 % (36.0-66.0); PLATELET COUNT, AUTOMATED 468 10^3/uL (150-450); RED BLOOD COUNT 3.83 10^6/uL (4.30-6.10); WHITE BLOOD COUNT 23.8 10^3/uL (4.0-10.0)
[2021-10-31 06:43] LABS: BLOOD UREA NITROGEN 21 MG/DL (7-18); CALCIUM LEVEL 8.7 MG/DL (8.8-10.2); CARBON DIOXIDE LEVEL 21 MEQ/L (21-32); CHLORIDE LEVEL 103 MEQ/L (98-107); CREATININE FOR GFR 0.92 MG/DL (0.70-1.30); GLOMERULAR FILTRATION RATE > 60.0 (>49); GLUCOSE, FASTING 99 MG/DL (70-100); POTASSIUM SERUM 4.1 MEQ/L (3.5-5.1); SODIUM LEVEL 136 MEQ/L (136-145)
[2021-10-31] MEDS: LACTULOSE 20 GM/30 ML SYRUP UD PO SCH ×2 (09:00→09:53)
[2021-10-31 09:53] VITALS: BP 116/76
[2021-10-31] MEDS: SENOKOT S TAB PO SCH (09:53)
[2021-10-31] MEDS: LACTOBACILLUS ACIDOPHILUS CAP (BACID) PO SCH (09:53)
[2021-10-31] MEDS: METOPROLOL SUCC (TopROL XL) 50MG **XL** TAB PO SCH (09:53)
[2021-10-31] MEDS: OMEPRAZOLE 20MG CAP PO SCH (09:53)
[2021-10-31] MEDS: traMADol 50 MG TAB PO PRN (09:56)
[2021-10-31 14:00] VITALS: BP 121/70
[2021-10-31] MEDS ORDERED: SENN-52 PO (15:43)
[2021-10-31] MEDS ORDERED: METO1TAB7 PO (15:43)
[2021-10-31] MEDS ORDERED: RISATAB3 PO (15:43)
[2021-10-31] MEDS ORDERED: TRAM50TA2 PO (15:43)
[2021-10-31] MEDS ORDERED: LACT20EL PO (15:43)
[2021-10-31] MEDS ORDERED: OXYC-517 PO (15:43)
== END 2021-10-31 17:09 | disposition home or self-care (01) | DRG 435 ==
LOC: M ED 13:12 → M ED INP 23:29 → M MSPAV 10-25 12:17
PROVIDERS: ADMIT Family Medicine; ATTEND Internal Medicine
PROC: 0FB23ZX Excision of Left Lobe Liver, Percutaneous Approach, Diagnostic (ICD-10-PCS; 2021-10-25)
PROC: 0DJD8ZZ Inspection of Lower Intestinal Tract, Via Natural or Artificial Opening Endoscopic (ICD-10-PCS; 2021-10-29)
PROC: 0DJ08ZZ Inspection of Upper Intestinal Tract, Via Natural or Artificial Opening Endoscopic (ICD-10-PCS; principal; 2021-10-29 08:30)
DX: C78.7 Secondary malignant neoplasm of liver and intrahepatic bile duct (principal); E43 Unspecified severe protein-calorie malnutrition; N39.0 Urinary tract infection, site not specified; R18.8 Other ascites; I25.10 Atherosclerotic heart disease of native coronary artery without angina pectoris; E11.9 Type 2 diabetes mellitus without complications; I10 Essential (primary) hypertension; K57.30 Diverticulosis of large intestine without perforation or abscess without bleeding; R33.9 Retention of urine, unspecified; E79.0 Hyperuricemia without signs of inflammatory arthritis and tophaceous disease; R16.2 Hepatomegaly with splenomegaly, not elsewhere classified; E87.5 Hyperkalemia; Z66 Do not resuscitate; G47.33 Obstructive sleep apnea (adult) (pediatric); E78.5 Hyperlipidemia, unspecified; I35.0 Nonrheumatic aortic (valve) stenosis; R74.01 Elevation of levels of liver transaminase levels; M19.90 Unspecified osteoarthritis, unspecified site; M06.9 Rheumatoid arthritis, unspecified; R63.4 Abnormal weight loss; R53.81 Other malaise; N31.9 Neuromuscular dysfunction of bladder, unspecified; M48.061 Spinal stenosis, lumbar region without neurogenic claudication; M10.9 Gout, unspecified; D72.829 Elevated white blood cell count, unspecified; N40.1 Benign prostatic hyperplasia with lower urinary tract symptoms; N13.9 Obstructive and reflux uropathy, unspecified; D49.0 Neoplasm of unspecified behavior of digestive system; K59.04 Chronic idiopathic constipation; K40.20 Bilateral inguinal hernia, without obstruction or gangrene, not specified as recurrent; I77.1 Stricture of artery; C67.5 Malignant neoplasm of bladder neck; R63.0 Anorexia; Z79.899 Other long term (current) drug therapy; Z87.891 Personal history of nicotine dependence; Z85.038 Personal history of other malignant neoplasm of large intestine; Z98.0 Intestinal bypass and anastomosis status; Z95.5 Presence of coronary angioplasty implant and graft; Z88.8 Allergy status to other drugs, medicaments and biological substances; Z90.49 Acquired absence of other specified parts of digestive tract; Z98.41 Cataract extraction status, right eye; Z98.42 Cataract extraction status, left eye